=== PATIENT | female | born 1965 | race Caucasian/White ===

== ENCOUNTER → 2020-02-10 14:45 | Outpatient (BNVA) | payer OTHER, SELFPAY | PROVIDERS: PCP Internal Medicine; Visit Provider Surgery | DX: R10.13 Epigastric pain (principal); Z87.19 Personal history of other diseases of the digestive system | CPT/HCPCS: 99213 ==

== ENCOUNTER 2020-03-29 15:41 | Outpatient (REF) | payer OTHER, SELFPAY | END 2020-03-29 15:42 | disposition home or self-care (01) | LOC: HO.LAB 15:41 | PROVIDERS: PCP Internal Medicine; Visit Provider Internal Medicine | DX: Z20.828 Contact with and (suspected) exposure to other viral communicable diseases (principal) | CPT/HCPCS: C9803; U0003 ==

== ENCOUNTER → 2020-05-18 14:28 | Outpatient (BNVA) | payer OTHER, SELFPAY | PROVIDERS: PCP Internal Medicine; Visit Provider Nurse Practitioner ==

== ENCOUNTER → 2020-05-24 09:20 | Outpatient (BNVA) | payer OTHER, SELFPAY | PROVIDERS: PCP Internal Medicine; Visit Provider Nurse Practitioner Gerontology ==

== ENCOUNTER 2020-06-14 07:38 | Outpatient (REF) | payer OTHER, SELFPAY ==
[2020-06-14 09:14] LABS: Alanine Aminotransferase 23 U/L (0-31); Albumin Level 4.5 g/dL (3.5-5.0); Alkaline Phosphatase 60 U/L (39-117); Anion Gap 19 (12-20); Aspartate Amino Transferase 17 U/L (5-31); Bilirubin Total 0.9 mg/dL (0.0-1.0); Blood Urea Nitrogen 67 mg/dL (9-16); Calcium 9.2 mg/dL (8.4-10.2); Carbon Dioxide 34 mmol/L (22-29); Chloride 85 mmol/L (96-108); Cholesterol 92 mg/dL; Estimated Glomerular Filt Rate 38; Glucose Fasting 318 mg/dL (60-99); HDL Cholesterol 21 mg/dL; LDL Cholesterol Calculated -7 mg/dl; Sodium 134 mmol/L (135-145); Total Protein 7.8 g/dL (6.5-8.0); Triglycerides 393 mg/dL
[2020-06-14 09:15] LABS: Creatinine Urine 62.67 mg/dL; Microalbum/Creatinine Ratio Ur 9.5 ug/mg cr
[2020-06-14 09:21] LABS: C Reactive Protein 0.17 mg/dL (< or = 0.50)
[2020-06-14 09:35] LABS: Estimated Average Glucose 186 mg/dL; Hemoglobin A1c % 8.1 %
[2020-06-15 07:32] LABS: LDL Cholesterol Direct 34 mg/dL (<100)
[2020-06-16 15:16] LABS: Transglutaminase Ab IgG 5 U/mL; Transglutaminase IgA 1 U/mL
[2020-06-17 13:26] LABS: Gliadin Deamidated IgA Ab 5 Units; Gliadin Deamidated IgG Ab 3 Units
== END 2020-06-14 07:39 | disposition home or self-care (01) ==
LOC: HO.LAB 07:38
PROVIDERS: Absent Provider Nurse Practitioner Gerontology; PCP Internal Medicine; Visit Provider Nurse Practitioner
DX: E11.21 Type 2 diabetes mellitus with diabetic nephropathy (principal); R19.7 Diarrhea, unspecified
CPT/HCPCS: 36415; 80053; 80061; 82043; 83036; 83516; 83721; 86140

== ENCOUNTER 2020-07-02 07:32 | Outpatient (REF) | payer OTHER, SELFPAY ==
[2020-07-02 09:43] LABS: Alanine Aminotransferase 27 U/L (0-31); Albumin Level 4.2 g/dL (3.5-5.0); Alkaline Phosphatase 51 U/L (39-117); Anion Gap 15 (12-20); Aspartate Amino Transferase 30 U/L (5-31); Bilirubin Total 0.8 mg/dL (0.0-1.0); Blood Urea Nitrogen 15 mg/dL (9-16); Calcium 8.6 mg/dL (8.4-10.2); Carbon Dioxide 27 mmol/L (22-29); Chloride 105 mmol/L (96-108); Cholesterol 111 mg/dL; Estimated Glomerular Filt Rate > 60; Glucose Fasting 141 mg/dL (60-99); HDL Cholesterol 28 mg/dL; Potassium 3.9 mmol/L (3.3-5.1); Sodium 143 mmol/L (135-145); Total Protein 7.1 g/dL (6.5-8.0)
[2020-07-02 09:50] LABS: LDL Cholesterol Calculated 25 mg/dl; Triglycerides 292 mg/dL
== END 2020-07-02 07:33 | disposition home or self-care (01) ==
LOC: HO.LAB 07:32
PROVIDERS: Absent Provider Nurse Practitioner; PCP Internal Medicine; Referring Provider Internal Medicine; Visit Provider Nurse Practitioner Gerontology
DX: E11.21 Type 2 diabetes mellitus with diabetic nephropathy (principal); I10 Essential (primary) hypertension; R19.7 Diarrhea, unspecified
CPT/HCPCS: 36415; 80053; 80061

== ENCOUNTER → 2020-07-05 08:46 | Outpatient (BNVA) | payer OTHER, SELFPAY | PROVIDERS: PCP Internal Medicine; Visit Provider Nurse Practitioner Gerontology | DX: E11.21 Type 2 diabetes mellitus with diabetic nephropathy (principal); E11.42 Type 2 diabetes mellitus with diabetic polyneuropathy; I10 Essential (primary) hypertension; E78.5 Hyperlipidemia, unspecified; E55.9 Vitamin D deficiency, unspecified; Z79.4 Long term (current) use of insulin; Z71.3 Dietary counseling and surveillance | CPT/HCPCS: 82947; 99212 ==

== ENCOUNTER 2020-07-13 16:06 | Outpatient (REF) | payer OTHER, SELFPAY ==
--- NOTE | ~2020-07-13 | XR_ITS ---
EXAMINATION: XR knee LT 3V CLINICAL INFORMATION: Reason for Exam M25.562 - Pain in left knee COMPARISON: None available at the time of this dictation. TECHNIQUE: frontal, lateral, tunnel and patella sunrise views FINDINGS: BONES: No fracture or dislocation is present. JOINTS: Narrowing of joint spaces and developed osteophytes from the edges of articular surfaces suggest degenerative osteoarthritis. SOFT TISSUE: Normal XR/XR knee LT 3V IMPRESSION: Moderate degenerative osteoarthritis involving primarily medial compartment.
== END 2020-07-13 16:07 | disposition home or self-care (01) ==
LOC: HO.XRAY 16:06
PROVIDERS: PCP Internal Medicine; Visit Provider Internal Medicine
DX: M25.562 Pain in left knee (principal)
CPT/HCPCS: 73562

== ENCOUNTER 2020-07-21 06:36 | Outpatient (REF) | payer OTHER, SELFPAY ==
[2020-07-21 07:24] LABS: MANUAL DIFF FLAG NO
[2020-07-21 07:35] LABS: Basophils Percent Auto 0.5 % (0-2); Eosinophils Absolute Auto 0.2 X10*3/uL (0.0-0.4); Eosinophils Percent Auto 1.7 % (0-4); Hemoglobin 11.9 g/dl (12.0-16.0); Imm Gran Abs Auto 0.02 X10*3/uL (0.00-0.03); Imm Gran Pct Auto 0.2 % (0.0-0.4); Lymphocytes Absolute Auto 3.3 X10*3/uL (1.2-4.9); Lymphocytes Percent Auto 37.6 % (20-40); Mean Corpuscular HGB Conc 32.2 g/dl (31.0-35.0); Mean Corpuscular Hemoglobin 26.3 pg (27.0-33.0); Mean Corpuscular Volume 81.7 fL (80-98); Mean Platelet Volume 9.6 fL (9.4-12.3); Monocytes Absolute Auto 0.6 X10*3/uL (0.1-1.2); Monocytes Percent Auto 7.2 % (2-11); Neutrophils Absolute Auto 4.7 X10*3/uL (2.0-8.3); Neutrophils Percent Auto 52.8 % (45-73); Platelet Count 302 X10*3/uL (160-400); Red Blood Count 4.53 X10*6/uL (4.20-5.50); Red Cell Distribution Width 14.4 % (11.0-16.0); White Blood Count 8.9 X10*3/uL (4.8-10.8)
[2020-07-21 07:51] LABS: Alanine Aminotransferase 22 U/L (0-31); Albumin Level 4.4 g/dL (3.5-5.0); Alkaline Phosphatase 60 U/L (39-117); Anion Gap 14 (12-20); Aspartate Amino Transferase 19 U/L (5-31); Bilirubin Total 0.9 mg/dL (0.0-1.0); Blood Urea Nitrogen 17 mg/dL (9-16); Calcium 9.1 mg/dL (8.4-10.2); Carbon Dioxide 27 mmol/L (22-29); Chloride 103 mmol/L (96-108); Cholesterol 77 mg/dL; Estimated Glomerular Filt Rate > 60; Glucose Fasting 93 mg/dL (60-99); HDL Cholesterol 26 mg/dL; LDL Cholesterol Calculated 20 mg/dl; Potassium 4.3 mmol/L (3.3-5.1); Sodium 140 mmol/L (135-145); Total Protein 7.3 g/dL (6.5-8.0); Triglycerides 155 mg/dL
[2020-07-21 08:50] LABS: Creatinine Urine 74.72 mg/dL; Microalbum/Creatinine Ratio Ur 17.3 ug/mg cr
[2020-07-25 15:32] LABS: Vitamin D 25-OH, D2 <4 ng/mL; Vitamin D 25-OH, D3 44 ng/mL; Vitamin D 25-OH, Total 44 ng/mL (30-100)
== END 2020-07-21 06:37 | disposition home or self-care (01) ==
LOC: HO.LAB 06:36
PROVIDERS: PCP Internal Medicine; Visit Provider Internal Medicine
DX: E11.42 Type 2 diabetes mellitus with diabetic polyneuropathy (principal); E55.9 Vitamin D deficiency, unspecified; D64.9 Anemia, unspecified; M54.32 Sciatica, left side; E78.5 Hyperlipidemia, unspecified; Z79.4 Long term (current) use of insulin
CPT/HCPCS: 36415; 80053; 80061; 82043; 82306; 85025

== ENCOUNTER → 2020-07-30 09:06 | Outpatient (BNVA) | payer OTHER, SELFPAY | PROVIDERS: PCP Internal Medicine; Visit Provider Physician Assistant | DX: M17.12 Unilateral primary osteoarthritis, left knee (principal); E11.21 Type 2 diabetes mellitus with diabetic nephropathy | CPT/HCPCS: 20610; 99202; J1020 ==

== ENCOUNTER 2020-11-29 13:14 | Outpatient (REF) | payer OTHER, SELFPAY ==
--- NOTE | ~2020-11-29 | US_ITS ---
EXAMINATION: MM DIAGNOSTIC DIGITAL BREAST TOMOSYNTHESIS, BILATERAL US DIAGNOSTIC ULTRASOUND BREAST, RIGHT CLINICAL INFORMATION: 2.5 months history right breast pain 9:00 through 1:00 position. No palpable mass or discharge. Recent course antibiotic. No known family history breast cancer. Due for yearly. The lifetime risk of breast cancer based on the Tyrer-Cuzick Model is 5%. COMPARISON: Mammography: 05/29/2019, 10/29/2018, 11/13/2017, targeted right breast ultrasound 05/29/2019 TECHNIQUE: Digital breast tomosynthesis is performed in both the craniocaudal and mediolateral oblique views along with computer-aided detection (CAD). Synthesized 2D images are generated from the tomosynthesis. Additional spot left MLO view is obtained. Ultrasound right breast is targeted to the areas of symptoms 9:00 through 1:00 position. Grayscale imaging and color Doppler are performed without and with harmonics. FINDINGS: There are scattered areas of fibroglandular density (ACR BI-RADS breast composition Category b). Breast parenchymal pattern is similar to prior studies. There is no developing density or interval mass or architectural abnormality. There is asymmetry of the breast tissue, right slightly larger, similar to prior studies. There is no skin thickening or coarsening of the Nate's ligaments. The axilla are stable. Ultrasound demonstrates no cystic or solid mass, architectural abnormality, or focal duct ectasia. No skin thickening or edema tracking in soft tissue plane. Results are discussed with the patient at time of visit, using an television repair teacher. US/US breast RT limited IMPRESSION: 1. No mammographic evidence of malignancy or inflammatory changes. 2. Unremarkable targeted right breast ultrasound. ASSESSMENT: BI-RADS 2: Benign RECOMMENDATION: 1. Patient's breast pain should be managed based on the clinical impression. 2. Otherwise, routine annual screening mammography. This patient's information was entered into a reminder system with a target due date for their next mammogram.
== END 2020-11-29 13:15 | disposition home or self-care (01) ==
LOC: HO.MAMMO 13:14
PROVIDERS: Visit Provider Hospitalist
DX: N64.4 Mastodynia (principal)
CPT/HCPCS: 76642; 77062; 77066

== ENCOUNTER 2020-12-06 09:51 | Outpatient (REF) | payer OTHER, SELFPAY ==
[2020-12-06 13:00] LABS: MANUAL DIFF FLAG NO
[2020-12-06 13:15] LABS: Basophils Absolute Auto 0.1 X10*3/uL (0.0-0.2); Basophils Percent Auto 0.6 % (0-2); Eosinophils Absolute Auto 0.2 X10*3/uL (0.0-0.4); Eosinophils Percent Auto 2.6 % (0-4); Hematocrit 43.5 % (37-47); Hemoglobin 13.3 g/dl (12.0-16.0); Imm Gran Abs Auto 0.01 X10*3/uL (0.00-0.03); Imm Gran Pct Auto 0.1 % (0.0-0.4); Lymphocytes Absolute Auto 3.2 X10*3/uL (1.2-4.9); Lymphocytes Percent Auto 35.7 % (20-40); Mean Corpuscular HGB Conc 30.6 g/dl (31.0-35.0); Mean Corpuscular Hemoglobin 24.6 pg (27.0-33.0); Mean Corpuscular Volume 80.6 fL (80-98); Mean Platelet Volume 10.3 fL (9.4-12.3); Monocytes Absolute Auto 0.8 X10*3/uL (0.1-1.2); Monocytes Percent Auto 8.5 % (2-11); Neutrophils Absolute Auto 4.7 X10*3/uL (2.0-8.3); Neutrophils Percent Auto 52.5 % (45-73); Platelet Count 254 X10*3/uL (160-400); Red Cell Distribution Width 14.7 % (11.0-16.0); White Blood Count 8.9 X10*3/uL (4.8-10.8)
[2020-12-06 13:48] LABS: Creatinine Urine 182.18 mg/dL
[2020-12-06 14:01] LABS: Alanine Aminotransferase 21 U/L (0-31); Albumin Level 4.3 g/dL (3.5-5.0); Alkaline Phosphatase 69 U/L (39-117); Anion Gap 12 (12-20); Aspartate Amino Transferase 18 U/L (5-31); Bilirubin Total 0.5 mg/dL (0.0-1.0); Blood Urea Nitrogen 15 mg/dL (9-16); C Reactive Protein 0.41 mg/dL (< or = 0.50); Calcium 9.2 mg/dL (8.4-10.2); Carbon Dioxide 31 mmol/L (22-29); Chloride 102 mmol/L (96-108); Cholesterol 162 mg/dL; Estimated Glomerular Filt Rate 59; Glucose Fasting 89 mg/dL (60-99); HDL Cholesterol 27 mg/dL; Potassium 4.2 mmol/L (3.3-5.1); Rheumatoid Factor < 15.0 IU/mL (<15.0); Sodium 141 mmol/L (135-145); Total Protein 7.4 g/dL (6.5-8.0); Triglycerides 402 mg/dL
[2020-12-06 14:07] LABS: Erythrocyte Sedimentation Rate 7 MM/HR (0-20)
[2020-12-08 09:41] LABS: NT-proBNP 55 pg/mL
[2020-12-08 16:16] LABS: Cyclic Citrullinated Peptide <16 UNITS
[2020-12-08 22:27] LABS: ANA Pattern 2 Nuclear, Nucleolar; Anti Nuclear Antibody Pattern Nuclear, Speckled; Anti Nuclear Antibody Screen POSITIVE (NEGATIVE); Anti Nuclear Antibody Titer 1:40 titer
[2020-12-10 14:31] LABS: Vitamin D 25-OH, D2 <4 ng/mL; Vitamin D 25-OH, D3 35 ng/mL; Vitamin D 25-OH, Total 35 ng/mL (30-100)
== END 2020-12-06 09:52 | disposition home or self-care (01) ==
LOC: HO.LAB 09:51
PROVIDERS: Absent Provider Internal Medicine; PCP Internal Medicine; Referring Provider Physician Assistant Medical; Visit Provider Nurse Practitioner Gerontology
DX: M25.50 Pain in unspecified joint (principal); E55.9 Vitamin D deficiency, unspecified; E78.5 Hyperlipidemia, unspecified; E11.21 Type 2 diabetes mellitus with diabetic nephropathy; D64.9 Anemia, unspecified; I25.10 Atherosclerotic heart disease of native coronary artery without angina pectoris
CPT/HCPCS: 36415; 80053; 80061; 82043; 82306; 83880; 85025; 85652; 86038; 86039; 86140; 86200; 86431

== ENCOUNTER → 2020-12-31 09:42 | Outpatient (REF) | payer OTHER, SELFPAY ==
--- NOTE | ~2020-12-31 | NM_ITS ---
Exercise Myocardial perfusion study Indication: Coronary artery disease to evaluate for myocardial ischemia Technique: The patient was brought in for an exercise perfusion study on 12/31/2020. Patient performed exercise as per Mo protocol and was injected 30 mCi of sestamibi was given intravenously one target HR was achieved. Images were obtained using the SPECT gamma camera interlaced with the gating device. Images were obtained in supine position. Resting perfusion study was performed on 01/03/2021. Patient was administered 30 mCi of sestamibi intravenously at rest. Images were then obtained in supine position. Images obtained with and without CT attenuation. Total DLP 110 mGy-cm. Images were processed with the software and compared side to side in short axis, horizontal long axis and vertical long axis views. Findings: The stress perfusion study showed nonattenuated images show mildly reduced uptake in the basal anterior and basal anteroseptal wall of the LV myocardium. Remainder of the LV myocardium appears to be normally perfused. Attenuation corrected images show mildly reduced uptake in the basal anteroseptal as well as mildly reduced uptake in the inferoapical wall of the LV myocardium.. The gated study shows normal LV systolic function with calculated LVEF of 59%. LV cavity is normal in in size. The gated study shows normal systolic wall thickening and contraction of all segments. There is no transient ischemic dilation. Resting study shows nonattenuated images show improvement in the basal anteroseptal wall of the LV myocardium. Attenuation corrected images show improved uptake in the basal anteroseptal as well as the inferoapical wall of the LV myocardium.. Gating at rest reveals normal systolic wall motion with ejection fraction at 57%. The findings are consistent with mild intensity basal anteroseptal and inferoapical ischemia. NM/NM nano perf SPECT rest & str Impression: 1. Mild basal anteroseptal and inferoapical ischemia 2. Gated LVEF is 59% 3. Transient ischemic dilatation not present Stress EKG is positive for ischemia
--- NOTE | 2020-12-31 09:48 | CA_ITS ---
Acquisition Time: 2020-12-31 10:01:22 Total Exercise Time: 00:03:19 Test Indications: Chest Pain, SOB Medications: Protocol: PERLA Max HR: 112 BPM 68% of Pred: 163 BPM Max BP: 140/082 mmHG Max Work Load: 4.9 METS Exercise stress test with exercise 3 min 19 sec of Perla protocol, with difficulty keeping up with treadmill in stage 2 and request to slow exercise. Treadmill placed n recovery and slowed to 1 MPH for additonal 4 minutes. Testing was changed to a pharmacological stress test with Lexiscan with report of 8/10 left chest pressure, mild sob, without arrythmia, with normotensive response to injection, with EKG changes meeting criteria for ischemia: [address] depression inferiorly and V6. In recovery her chest discomfort improved to 5/10. After 4 minutes post lexiscan injection she was given Aminophylline 75mg IVP with resolution of CP by 5 min recovery and normalization of EKG by 6.5 min recovery. Nuclear images pending. Test reviewed with Dr Blackburn. Referred By: Ankit Thomson Overread By: ANGIE HOLLOWAY
== END ==
LOC: HO.CARD 09:42
PROVIDERS: Visit Provider Physician Assistant Medical
DX: I25.10 Atherosclerotic heart disease of native coronary artery without angina pectoris (principal)
CPT/HCPCS: 78452; 93017; A9500; J0280; J2785

== ENCOUNTER 2021-04-06 08:13 | Outpatient (REF) | payer OTHER, SELFPAY ==
--- NOTE | ~2021-04-06 | XR_ITS ---
EXAMINATION: XR SHOULDER, LEFT CLINICAL INFORMATION: Pain left shoulder. COMPARISON: None TECHNIQUE: AP, scapular Y, and axillary views of the left shoulder. FINDINGS: There is no acute fracture or malalignment. There are small marginal spurs of the glenohumeral joint, particularly inferiorly. There is no definite joint space narrowing. There is mild osteoarthritis of the acromioclavicular joint. XR/XR shoulder LT min 2V IMPRESSION: Mild osteoarthritis of the glenohumeral and acromioclavicular joints.
== END 2021-04-06 08:14 | disposition home or self-care (01) ==
LOC: HO.HOSX 08:13
PROVIDERS: Visit Provider Physician Assistant
DX: M19.019 Primary osteoarthritis, unspecified shoulder (principal); M75.82 Other shoulder lesions, left shoulder
CPT/HCPCS: 20610; 73030; 99202; J1020

== ENCOUNTER → 2021-05-18 09:32 | Outpatient (BNVA) | payer OTHER, SELFPAY | PROVIDERS: PCP Internal Medicine; Visit Provider Physician Assistant | DX: M75.82 Other shoulder lesions, left shoulder (principal); M19.019 Primary osteoarthritis, unspecified shoulder | CPT/HCPCS: 99212 ==

== ENCOUNTER → 2021-05-30 10:57 | Outpatient (BNVA) | payer OTHER, SELFPAY | PROVIDERS: PCP Internal Medicine; Visit Provider Nurse Practitioner Gerontology | DX: E11.21 Type 2 diabetes mellitus with diabetic nephropathy (principal); E11.42 Type 2 diabetes mellitus with diabetic polyneuropathy; I10 Essential (primary) hypertension; Z79.4 Long term (current) use of insulin; E78.5 Hyperlipidemia, unspecified; E55.9 Vitamin D deficiency, unspecified | CPT/HCPCS: 82947; 83036; 99212 ==

== ENCOUNTER → 2021-06-17 10:19 | Outpatient (BNVA) | payer OTHER, SELFPAY | PROVIDERS: PCP Internal Medicine; Visit Provider Dietitian, Registered | DX: E11.42 Type 2 diabetes mellitus with diabetic polyneuropathy (principal); Z79.4 Long term (current) use of insulin; Z71.3 Dietary counseling and surveillance | CPT/HCPCS: 97802 ==

== ENCOUNTER → 2021-06-29 09:37 | Outpatient (BNVA) | payer OTHER, SELFPAY | PROVIDERS: PCP Internal Medicine; Visit Provider Physician Assistant | DX: M19.012 Primary osteoarthritis, left shoulder (principal); M75.82 Other shoulder lesions, left shoulder | CPT/HCPCS: 20610; 99212; J1020 ==

== ENCOUNTER 2021-08-05 10:00 | Outpatient (RCR) | payer OTHER, SELFPAY ==
--- NOTE | 2021-07-06 11:01 | MHC.PT.EP ---
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 OBJECTIVE FINDINGS: DECR POSTURAL AWARENESS, WEAK POST RC/ SCAP, TIGHT ANT CHEST (CARDIAC SURG), LEFT SH ROM LIMITATIONS, INCR TISSUE TENSION EMMA LS PS MM, AND PAIN IN LEFT SH. FUNCTIONALLY, Pt HAS DIFFIC SLEEPING ON Lt SIDE, LIMITED W OVERALL ADLs- OBSERVED TODAY INDEP DONNING JACKET AND BED MOB WFL W/O ASSIST OR VERBALIZATION OF LIMITING Lt SH PAIN. Pt WOULD BENEFIT FROM PT TO ADDRESS THE ABOVE FINDINGS, EASE TISSUE TENSION, PAIN MGMT, AND DEV SELF- SX MGMT STRATEGIES. Frequency and Duration: The patient will be seen 2 x WK x 4 WKS Short Term Goals: *Pt'S LEFT SH PAIN DECR TO 4-5/10 IN 2 WKS (AT EVAL 10/10) *Pt DEMON IMPROVED AROM Lt SH IN 2 WKS *REDUCE EMMA LUMBAR PS MM TENSION AND PECT TIGHTNESS IN 2 WKS Halfway Goals: *Pt INDEP HEP PROGR AND SELF-SX MGMT STRATEGIES FOR Lt SH IN 4 WKS Pt RESUME REG ADLs TO ESSIE EVIDENT IN IMPROVED SPADI BY 20-30 POINTS ( AT EVAL 130 /130 ) IN 4 WKS *Pt SIMUL 3:3 ADLs / WORK TASKS W PROPER MECHANICS IN 4 WKS *Pt DEMON IMPROVED STRENGTH IN Lt SH/ SCAP BY 1/2-1 GRADE IN 4 WKS Treatment Plan: Modalities to reduce pain, spasms and effusion. Manual therapy to restore motion and function. Therapeutic exercise to improve strength and flexibility. Neuromuscular re-education for posture and balance. Therapeutic activities to return to functional activities of daily living. Electronically signed by: Yumiko Nunez,PT Please sign and return to therapist. Thank you for your referral.
--- NOTE | 2021-09-07 14:55 | MHC.PT.DC ---
[facility] [place] Office [place] Office [place] Office [address]sha [address] [phone] F: [phone] F: [phone] F: [phone] F: [phone] Physical Therapy Discharge Report Diagnosis: LEFT SH OA, AC Jt ARTHRITIS, TENDONITIS Lt RC Date of Surgery: Date of Evaluation: 07/06/21 Date of Discharge: 09/07/21 Treatments to Date: 3 Cancellations to Date: No Shows to Date: Discharge Status: Improved Function Independent with HEP Discharge Summary: THE Pt BENEFITTED FROM Lt SH ROM/ POSTURAL FB, SCAP / TRUNK MM ACTIV, AND POSTERIOR CHAIN EASING- SHE PERF HEP W/O ANY PAIN, ONLY TISSUE STRETCH TO EASE- SHE ATTENDED 3 APPTs AND ELECTED TO STOP PT AT THIS TIME. Electronically signed by: Yumiko Nunez,PT Please sign and return to therapist. Thank you for your referral.
== END 2021-09-07 14:54 | disposition home or self-care (01) ==
LOC: HO.PT 10:00
PROVIDERS: PCP Internal Medicine; Visit Provider Physician Assistant
DX: M19.019 Primary osteoarthritis, unspecified shoulder (principal); M75.82 Other shoulder lesions, left shoulder
CPT/HCPCS: 97110; 97162

== ENCOUNTER 2021-08-17 09:00 | Outpatient (REF) | payer OTHER, SELFPAY ==
[2021-08-17 10:06] LABS: Creatinine Urine 188.01 mg/dL; Microalbum/Creatinine Ratio Ur 34.5 ug/mg cr
[2021-08-17 10:10] LABS: Alanine Aminotransferase 26 U/L (0-31); Albumin Level 4.2 g/dL (3.5-5.0); Alkaline Phosphatase 81 U/L (39-117); Anion Gap 12 (12-20); Aspartate Amino Transferase 25 U/L (5-31); Bilirubin Total 1.2 mg/dL (0.0-1.0); Blood Urea Nitrogen 16 mg/dL (9-16); Calcium 9.9 mg/dL (8.4-10.2); Carbon Dioxide 30 mmol/L (22-29); Chloride 102 mmol/L (96-108); Cholesterol 151 mg/dL; Estimated Glomerular Filt Rate 52; Glucose Fasting 124 mg/dL (60-99); HDL Cholesterol 31 mg/dL; LDL Cholesterol Calculated 85 mg/dl; Potassium 4.6 mmol/L (3.3-5.1); Sodium 139 mmol/L (135-145); Total Protein 7.8 g/dL (6.5-8.0); Triglycerides 175 mg/dL
[2021-08-24 11:06] LABS: Vitamin D 25-OH, D2 <4 ng/mL; Vitamin D 25-OH, D3 32 ng/mL; Vitamin D 25-OH, Total 32 ng/mL (30-100)
== END 2021-08-17 09:01 | disposition home or self-care (01) ==
LOC: HO.LAB 09:00
PROVIDERS: PCP Internal Medicine; Visit Provider Internal Medicine
DX: E78.5 Hyperlipidemia, unspecified (principal); I10 Essential (primary) hypertension; E55.9 Vitamin D deficiency, unspecified; E11.9 Type 2 diabetes mellitus without complications
CPT/HCPCS: 36415; 80053; 80061; 82043; 82306

== ENCOUNTER → 2021-08-25 11:50 | Outpatient (BNVA) | payer OTHER, SELFPAY | PROVIDERS: PCP Internal Medicine; Referring Provider Internal Medicine; Visit Provider Nurse Practitioner | DX: K31.84 Gastroparesis (principal); R19.7 Diarrhea, unspecified | CPT/HCPCS: 99212 ==

== ENCOUNTER → 2021-09-07 10:51 | Outpatient (BNVA) | payer OTHER, SELFPAY | PROVIDERS: PCP Internal Medicine; Visit Provider Physician Assistant | DX: M75.82 Other shoulder lesions, left shoulder (principal); M25.50 Pain in unspecified joint | CPT/HCPCS: 99212 ==

== ENCOUNTER 2021-09-09 07:16 | Outpatient (REF) | payer OTHER, SELFPAY ==
--- NOTE | ~2021-09-09 | XR_ITS ---
EXAMINATION: XR BILATERAL KNEE CLINICAL INFORMATION: Bilateral knee pain. COMPARISON: Left knee done on 07/13/2020 and right knee done on 12/23/2019. TECHNIQUE: Upright frontal view of both knees and lateral and patellofemoral views of the left knee. FINDINGS: Upright frontal views of both knees shows moderate medial compartmental and mild lateral compartmental osteoarthrosis. The bony alignments are intact. The lateral view and the patellofemoral views of the left knee shows enthesopathy at the insertional site of the infrapatellar tendon and no evidence of any joint effusion, unchanged since 07/13/2020. XR/XR knee LT 2V IMPRESSION: 1. Moderate medial and mild lateral compartmental bilateral osteoarthrosis. 2. No significant change since prior study dated 07/13/2020 and 12/23/2019.
--- NOTE | ~2021-09-09 | XR_ITS ---
EXAMINATION: XR BILATERAL KNEE CLINICAL INFORMATION: Bilateral knee pain. COMPARISON: Left knee done on 07/13/2020 and right knee done on 12/23/2019. TECHNIQUE: Upright frontal view of both knees and lateral and patellofemoral views of the left knee. FINDINGS: Upright frontal views of both knees shows moderate medial compartmental and mild lateral compartmental osteoarthrosis. The bony alignments are intact. The lateral view and the patellofemoral views of the left knee shows enthesopathy at the insertional site of the infrapatellar tendon and no evidence of any joint effusion, unchanged since 07/13/2020. XR/XR knee standing BI IMPRESSION: 1. Moderate medial and mild lateral compartmental bilateral osteoarthrosis. 2. No significant change since prior study dated 07/13/2020 and 12/23/2019.
== END 2021-09-09 07:17 | disposition home or self-care (01) ==
LOC: HO.HOSX 07:16
PROVIDERS: Visit Provider Physician Assistant
DX: M17.12 Unilateral primary osteoarthritis, left knee (principal)
CPT/HCPCS: 20610; 73560; 73565; 99212; J1020

== ENCOUNTER 2021-09-28 08:37 | Outpatient (REF) | payer OTHER, SELFPAY ==
--- NOTE | ~2021-09-28 | MR_ITS ---
EXAMINATION: MRI SHOULDER WITHOUT CONTRAST, LEFT CLINICAL INFORMATION: Left shoulder pain. COMPARISON: None TECHNIQUE: Multisequence MR imaging of the left shoulder was obtained without contrast on a high-field strength scanner. FINDINGS: ROTATOR CUFF: Moderate supraspinatus tendinosis with high-grade distal articular surface partial tearing measuring up to 2.3 x 1.9 cm (AP by ML). For the most part the bursal surface tendon fibers appear to remain intact. However, there may be a small full-thickness component to the tear along the anterior leading edge measuring up to 0.3 cm in AP dimension. Mild subscapularis tendinosis with distal superior articular surface partial tearing measuring 2.2 cm in ML dimension. No muscle atrophy or fatty infiltration. BICEPS: Normal CORACOACROMIAL ARCH: The undersurface of the acromion is mildly curved with small subacromial spurs. Moderate acromioclavicular osteoarthritis. LABRUM/CAPSULE: Shallow fluid signal within the undersurface of the superior and posterosuperior labrum consistent with non-displaced undersurface tearing. Intact joint capsule. GLENOHUMERAL JOINT/MARROW: Focus of full-thickness articular cartilage loss at the superomedial humeral head measuring up to 1.4 cm in ML dimension. Superior glenoid articular cartilage thinning. Small marginal osteophytes. Small joint effusion. MR/MR shoulder LT wo con IMPRESSION: 1. Moderate supraspinatus tendinosis with high-grade articular surface partial tearing measuring 2.3 x 1.9 cm. Possible small full-thickness component along the anterior leading edge measuring up to 0.3 cm in AP dimension. Mild subscapularis tendinosis with distal articular surface partial tearing measuring 2.2 cm in ML dimension. 2. Moderate acromioclavicular osteoarthritis with small subchondral spurs. 3. Nonspecific undersurface tearing the superior and posterosuperior labrum. 4. Mild glenohumeral osteoarthritis with a full-thickness humeral head articular cartilage defect measuring up to 1.4 cm. Small joint effusion.
== END 2021-09-28 08:38 | disposition home or self-care (01) ==
LOC: HO.MRI 08:37
PROVIDERS: Visit Provider Physician Assistant
DX: S46.002A Unspecified injury of muscle(s) and tendon(s) of the rotator cuff of left shoulder, initial encounter (principal)
CPT/HCPCS: 73221

== ENCOUNTER → 2021-10-03 10:49 | Outpatient (BNVA) | payer OTHER, SELFPAY | PROVIDERS: PCP Internal Medicine; Visit Provider Anesthesiology | DX: M19.012 Primary osteoarthritis, left shoulder (principal); M75.102 Unspecified rotator cuff tear or rupture of left shoulder, not specified as traumatic; E66.01 Morbid (severe) obesity due to excess calories; Z68.41 Body mass index [BMI] 40.0-44.9, adult | CPT/HCPCS: 99202; 99212 ==

== ENCOUNTER 2021-10-25 12:00 | Outpatient (REF) | payer OTHER, SELFPAY ==
--- NOTE | ~2021-10-25 | XR_ITS ---
EXAMINATION: XR HAND, LEFT CLINICAL INFORMATION: Pain. COMPARISON: None TECHNIQUE: PA, lateral, and oblique views of the left hand. FINDINGS: There is no visible acute fracture, dislocation. The joint space alignment is normal. No bony erosive changes. The soft tissues are normal. XR/XR hand LT min 3V IMPRESSION: Unremarkable left hand.
== END 2021-10-25 12:01 | disposition home or self-care (01) ==
LOC: HO.HOSX 12:00
PROVIDERS: Visit Provider Orthopaedic Surgery
DX: M18.12 Unilateral primary osteoarthritis of first carpometacarpal joint, left hand (principal)
CPT/HCPCS: 73130; 99202

== ENCOUNTER 2022-01-09 07:41 | Outpatient (REF) | payer OTHER, SELFPAY ==
[2022-01-09 07:50] LABS: MANUAL DIFF FLAG NO
[2022-01-09 08:14] LABS: Basophils Absolute Auto 0.1 X10*3/uL (0.0-0.2); Basophils Percent Auto 0.7 % (0-2); Eosinophils Absolute Auto 0.3 X10*3/uL (0.0-0.4); Eosinophils Percent Auto 3.7 % (0-4); Hematocrit 41.5 % (37.0-47.0); Hemoglobin 13.5 g/dl (12.0-16.0); Imm Gran Abs Auto 0.01 X10*3/uL (0.00-0.03); Imm Gran Pct Auto 0.1 % (0.0-0.4); Lymphocytes Absolute Auto 2.9 X10*3/uL (1.2-4.9); Lymphocytes Percent Auto 42.3 % (20-40); Mean Corpuscular HGB Conc 32.5 g/dl (31.0-35.0); Mean Corpuscular Hemoglobin 26.7 pg (27.0-33.0); Mean Corpuscular Volume 82.2 fL (80.0-98.0); Mean Platelet Volume 9.7 fL (9.4-12.3); Monocytes Absolute Auto 0.6 X10*3/uL (0.1-1.2); Monocytes Percent Auto 8.1 % (2-11); Neutrophils Absolute Auto 3.1 x10*3/uL (2.0-8.3); Neutrophils Percent Auto 45.1 % (45-73); Platelet Count 245 X10*3/uL (160-400); Red Blood Count 5.05 X10*6/uL (4.20-5.50); Red Cell Distribution Width 13.8 % (11.0-16.0); White Blood Count 6.8 X10*3/uL (4.8-10.8)
[2022-01-09 08:42] LABS: Alanine Aminotransferase 17 U/L (0-31); Albumin Level 4.1 g/dL (3.5-5.0); Alkaline Phosphatase 85 U/L (39-117); Anion Gap 14 (12-20); Aspartate Amino Transferase 14 U/L (5-31); Bilirubin Total 0.8 mg/dL (0.0-1.0); Blood Urea Nitrogen 15 mg/dL (9-16); Calcium 9.1 mg/dL (8.4-10.2); Carbon Dioxide 26 mmol/L (22-29); Chloride 103 mmol/L (96-108); Cholesterol 200 mg/dL; Estimated Glomerular Filt Rate > 60; Glucose Fasting 239 mg/dL (60-99); HDL Cholesterol 29 mg/dL; LDL Cholesterol Calculated 130 mg/dl; Potassium 4.3 mmol/L (3.3-5.1); Sodium 139 mmol/L (135-145); Total Protein 7.2 g/dL (6.5-8.0); Triglycerides 208 mg/dL
[2022-01-09 08:44] LABS: Creatinine Urine 223.17 mg/dL; Microalbum/Creatinine Ratio Ur 51.5 ug/mg cr
[2022-01-09 08:58] LABS: Free T4 (Free Thyroxine) 1.09 ng/dL (0.71-1.85)
[2022-01-09 09:03] LABS: Thyroid Stimulating Hormone 1.65 uIU/mL (0.32-4.0); Vitamin D 25-OH Total 35.4 ng/mL (>30)
[2022-01-10 23:52] LABS: LDL Cholesterol Direct 144 mg/dL (<100)
[2022-01-11 11:51] LABS: NT-proBNP 42 pg/mL
== END 2022-01-09 07:42 | disposition home or self-care (01) ==
LOC: HO.LAB 07:41
PROVIDERS: Absent Provider Internal Medicine; PCP Internal Medicine; Visit Provider Nurse Practitioner Gerontology
DX: E11.42 Type 2 diabetes mellitus with diabetic polyneuropathy (principal); E66.01 Morbid (severe) obesity due to excess calories; D64.9 Anemia, unspecified; E55.9 Vitamin D deficiency, unspecified; I50.20 Unspecified systolic (congestive) heart failure; E78.5 Hyperlipidemia, unspecified; Z79.4 Long term (current) use of insulin
CPT/HCPCS: 36415; 80053; 80061; 82043; 82306; 83721; 83880; 84439; 84443; 85025

== ENCOUNTER 2022-05-29 15:19 | Observation (INO) | payer OTHER, SELFPAY ==
--- NOTE | ~2022-05-29 | CT_ITS ---
CT HEAD WITHOUT CONTRAST CLINICAL INFORMATION: Result facial droop. COMPARISON: None available. TECHNIQUE: Contiguous axial imaging was performed from the skull base to vertex without intravenous administration of contrast. This CT examination was performed using dose optimization techniques as appropriate, variously including the following: *Automated exposure control *Adjustment of mA and/or kV according to patient size (this includes techniques or standardized protocols for targeted exams where dose is matched to indication/reason for exam; i.e. extremities or head) *Use of iterative reconstruction technique FINDINGS: Mild to moderate multifocal hypoattenuation throughout the supratentorial white matter is nonspecific and can be further assessed with a MRI of the brain as clinically indicated. There is no intracranial hemorrhage, hydrocephalus, extra-axial surface collection, midline shift, or other herniation pattern. [place] to white matter differentiation is diffusely maintained without evidence of an evolved acute territorial infarct. The basilar cisterns are preserved. No significant soft tissue abnormality. No acute osseous abnormality. There is mild mucosal thickening within the left maxillary sinus. CT/CT head/brain wo IV con IMPRESSION: No definite acute intracranial abnormality. Mild to moderate multifocal hypoattenuation throughout the supratentorial white matter is nonspecific and can be further assessed with a MRI of the brain as clinically indicated.
--- NOTE | ~2022-05-29 | CT_ITS ---
EXAMINATION: CT ANGIOGRAM HEAD CT ANGIOGRAM NECK CLINICAL INFORMATION: Reason for Exam tia, left facial droop resolved COMPARISON: Same day CTA head without contrast TECHNIQUE: Initial noncontrast night supervisor imaging of the head and neck was performed. Comparison is made with noncontrast head CT from earlier today. Test bolus sequences followed by intravenous administration 70 mL of Omnipaque 350. Helical imaging was performed in the axial plane from the aortic arch to the skull vertex. Delayed postcontrast imaging of the head was also performed. The data was processed at the nuclear cardiology technologist's workstation for generation of MIP sequences. Angled MIPs and volume rendered reformatted images were also generated at an offline 3D workstation. Stenoses are assessed in accordance with NASCET criteria unless otherwise indicated. DLP: 1439 mGy-cm This CT examination was performed using dose optimization techniques as appropriate, variously including the following: *Automated exposure control. *Adjustment of mA and/or kV according to patient size (this includes techniques or standardized protocols for targeted exams where dose is matched to indication/reason for exam; i.e. extremities or head). *Use of iterative reconstruction technique. FINDINGS: CT Head: There is no evidence of acute intracranial hemorrhage or edematous territorial infarction. Hypoattenuation in the bifrontal white matter is nonspecific but may reflect sequela of chronic microvascular ischemia. Campos-white matter differentiation is preserved. The ventricles are normal in size and configuration. No evidence for obstructive hydrocephalus. No abnormal mass effect or midline shift. No extra-axial fluid collections. No pathologic intra-axial enhancement or regional oligemia. No acute soft tissue or osseous abnormalities. Mild ethmoid and left maxillary sinus mucosal thickening. CT Neck: There is a 1.5 cm hypodense nodule in the inferior left lobe of the thyroid gland. Subcentimeter hypodense nodule in the superior right lobe. The remaining cervical soft tissues are within normal limits. No significant abnormalities of the cervical spine. CT Upper Chest: The visualized lung apices and upper mediastinum are within normal limits. Postsurgical changes from median sternotomy and evidence of prior coronary artery bypass grafting. Neck CTA: Aortic Arch: Normal contour and caliber. Classic 3 vessel branching pattern of the aortic arch. Great Vessel Origins: No significant stenosis of the branch origins. Right Common Carotid Artery: No focal stenosis or occlusion. Cervical Right Internal Carotid Artery: Normal opacification without focal stenosis or occlusion. Left Common Carotid Artery: No focal stenosis or occlusion. Cervical Left Internal Carotid Artery: Mild calcific atherosclerotic disease of the carotid bulb and proximal internal carotid artery without flow-limiting stenosis. Cervical Right Vertebral Artery: No focal stenosis or occlusion. Cervical Left Vertebral Artery: No focal stenosis or occlusion. Brain CTA: Multifocal irregularity of intracranial arterial circulation is likely on the basis of diffuse atherosclerotic disease. Intracranial Internal Carotid Arteries: Calcific atherosclerosis of the right cavernous and supraclinoid ICA with mild right supraclinoid narrowing. Normal caliber of the right carotid terminus. There is irregularity and moderate to severe stenosis of the left paraclinoid and supraclinoid ICA on the basis of atherosclerotic disease. Anterior Cerebral Artery: Dominant right A1 segment. The left A1 segment is diminutive, likely on a congenital basis with apparent moderate stenosis of the left A1 origin. Azygos configuration of the A2 segment. Anterior Communicating Artery: Normal. Right Middle Cerebral Artery: Normal M1 segment of the MCA without focal stenosis or occlusion. Normal arborization of the distal segments. Left Middle Cerebral Artery: Moderate stenosis of the left M1 origin Normal arborization of the distal segments. Right Vertebral Artery: Mild calcified atherosclerotic disease and proximal narrowing. Left Vertebral Artery: Mild calcified atherosclerotic disease and proximal narrowing. Basilar Artery: There is a mild to moderate stenosis of the distal basilar artery at the level of the ICA origins related to eccentric lipid-laden plaque. Normal appearance of the proximal superior cerebellar arteries. Right Posterior Cerebral Artery: Normal P1 segment. Normal opacification of the distal [employer] segments. Left Posterior Cerebral Artery: Normal P1 segment. Normal opacification of the distal [employer] segments. Normal opacification of the superior sagittal, straight, transverse, and sigmoid sinuses. CT/CT angio head neck stroke IMPRESSION: 1. No arterial high-grade stenosis or large vessel occlusion is identified to explain patient's clinical symptomatology of left-sided facial droop. 2. There is multifocal intracranial atherosclerotic disease, most notably involving the left anterior circulation with moderate to high-grade stenosis of the paraclinoid and supraclinoid left ICA as well as the origins of the left A1 and M1 segments. 3. 1.5 cm hypodense nodule in the inferior left thyroid. Recommend further evaluation with outpatient thyroid ultrasound. Impression #1 and #[address] Babin on 05/29/2022 at 10:03 PM
[2022-05-29 15:26] VITALS: BP 130/87; PULSE 92; RESP 18; TEMP 36.6; O2SAT 96; BMI 43.0
--- NOTE | 2022-05-29 15:34 | ED_ITS ---
HPI - General Adult General Chief complaint: General Medical Stated complaint: facial droop/ sent by for stroke Time Seen by Provider: 05/29/22 20:53 Related Data Home Medications Medication Instructions Recorded Confirmed fluoxetine 40 mg capsule 40 mg PO DAILY 12/06/20 05/30/22 sacubitril 49 mg-valsartan 51 mg 1 tab PO BID 05/30/21 05/30/22 tablet (Entresto) aspirin 81 mg tablet,delayed 81 mg PO DAILY 08/25/21 05/30/22 release ammonium lactate 12 % topical cream 1 appl topical BID 05/29/22 05/29/22 cream base no.193 (bulk) 1 appl topical TID 05/29/22 05/29/22 (Versatile topical cream) naproxen 125 mg/5 mL oral 250 mg PO BID PRN Pain (Scale 05/29/22 05/29/22 suspension Score 4-6) dulaglutide 1.5 mg/0.5 mL 1.5 mg subcut WE 05/30/22 05/30/22 subcutaneous pen injector (IntegraGen) Previous Rx's Medication Instructions Recorded trazodone 100 mg tablet 100 mg PO BEDTIME PRN for insomnia 03/09/20 #30 tabs blood-glucose meter (FreeStyle #1 ea 05/30/21 Lite Meter kit) lancets 33 gauge (TRUEplus Lancets) #200 ea 05/30/21 pen needle, diabetic 32 gauge x #125 ea 05/30/21/32 (BD Ultra-Fine Rika Pen Needle) cholecalciferol (vitamin D3) 25 25 mcg PO DAILY 30 days #30 caps 06/27/21 mcg (1,000 unit) capsule blood sugar diagnostic (FreeStyle #100 ea 08/17/21 Lite Strips) metoclopramide HCl 5 mg tablet 5 mg PO QIDACHS #120 tabs 08/25/21 (Reglan) ezetimibe 10 mg tablet 10 mg PO DAILY #90 tabs 09/27/21 flash glucose scanning reader #1 ea 11/02/21 (FreeStyle Arsalan 2 Cable) flash glucose sensor (FreeStyle #2 ea 11/02/21 Arsalan 2 Sensor kit) amlodipine 10 mg tablet 10 mg PO DAILY 90 days #90 tabs 12/19/21 sucralfate 1 gram tablet 3 g PO DAILY #90 tabs 01/09/22 metformin 1,000 mg tablet 1,000 mg PO BID #90 tabs 01/27/22 atorvastatin 80 mg tablet 80 mg PO BEDTIME 90 days #90 tabs 05/16/22 hydralazine 10 mg tablet 10 mg PO TID 30 days #90 tabs 05/16/22 insulin glargine 100 unit/mL (3 32 unit (0.32 mL) subcut DAILY 90 05/16/22 mL) subcutaneous pen (Lantus days #28.8 mL Solostar U-100 Insulin) nitroglycerin 0.4 mg sublingual 0.4 mg sublingual Q5M for angina 05/16/22 tablet #25 tabs insulin lispro 100 unit/mL 4 - 6 unit (0.04 - 0.06 mL) subcut 05/22/22 subcutaneous pen (Admelog SoloStar TID #15 mL U-100 Insulin lispro) Allergies Allergy/AdvReac Type Severity Reaction Status Date / Time No Known Allergies Allergy Verified 05/16/22 11:07 [No Known Allergies*] [facility] Past Medical History Medical History Alopecia Anxiety Coronary artery disease Degenerative joint disease Depression Diabetes mellitus Diarrhea Diarrhea Dizziness Dyslipidemia Essential hypertension Gastroparesis Left knee pain Lower back pain Mild recurrent major depression Morbid obesity Osteoarthritis of left shoulder Polyarthralgia Pulmonary nodule Right hand pain Skin lesion Systolic CHF with reduced left ventricular function, NYHA class 2 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 Surgical History History of coronary artery bypass surgery History of hernia repair (~09/11/18) History of open heart surgery (~01/2017) History of tubal ligation (~1989) Hx of colonoscopy Family History Family History Father History of diabetes mellitus History of hypertension Mother Alzheimers disease Family/Other FH: mental illness Social History Social History Household Members: Family Household Members Other:: daughter Housing: House Alcohol intake: never Patient Tobacco Use Status: Former Tobacco user Tobacco use type: Cigarette e-Cigarette/Vaping Use: Never Used Second Hand Smoke Exposure: No service: No Current occupational status: unemployed Current occupation: rt handed Cognitive needs: No Hearing needs: No Vision needs: Yes Physical Exam ED Vital Signs: Vital Signs - 24 hr 05/29/22 15:26 Temperature 97.8 F Pulse Rate 92 Respiratory Rate 18 Blood Pressure 130/87 Pulse Oximetry 96 Oxygen Delivery Method Room Air BMI result Body Mass Index 43.0 Course Course Course Narrative: RME: 56-year-old female presents to ED for evaluation of results facial droop. Patient states he had facial droop last Sunday and Sunday ( that resolved on its own) so her doctor sent to ED for evaluation. Patient denies any other symptoms with the facial droop. Presently no facial droop or any other neuro deficits. Equal facial symmetry and patient open the mouth and using tongue normally. Cranial nerves intact. All extremities normal strength. Negative Romberg. Negative for slurred speech. negative pronator drift. NIH score 0. Patient is outside the window. Will do a head CT scan and labs. Presently no need for calling code stroke. Medications Administered Discontinued Medications Generic Name Dose Route Start Last Admin Trade Name Sabra PRN Reason Stop Dose Admin Aspirin 325 mg 05/29/22 21:11 05/29/22 21:23 Aspirin 325 Mg Tablet PO 05/29/22 21:12 325 mg ONCE ONE Administration Aspirin 81 mg 05/30/22 09:00 05/30/22 07:32 Aspirin Enteric Coated 81 Mg Tablet. PO 81 mg DAILY PHILLIP Administration Atorvastatin Calcium 80 mg 05/30/22 06:32 05/30/22 07:32 Atorvastatin Calcium 80 Mg Tablet PO 05/30/22 06:33 80 mg ONCE ONE Administration Ezetimibe 10 mg 05/30/22 09:00 05/30/22 10:33 Ezetimibe 10 Mg Tablet PO 10 mg DAILY PHILLIP Administration Fluoxetine HCl 40 mg 05/30/22 09:00 05/30/22 10:33 Fluoxetine Hcl 20 Mg Capsule PO 40 mg DAILY PHILLIP Administration Insulin Human Lispro 0 unit 05/30/22 07:30 05/30/22 17:08 Insulin Lispro 100 Unit/Ml 3 Ml Vial SUBCUT Not Given QIDACHS [facility] Protocol Iohexol 100 ml 05/29/22 21:48 05/29/22 21:49 Iohexol 350 Mg/Ml 100 Ml Infus..Btl IV 05/29/22 21:49 70 ml ONCE ONE Administration Metoclopramide HCl 5 mg 05/30/22 11:30 05/30/22 17:12 Metoclopramide Hcl 5 Mg Tablet PO Not Given QIDACHS [facility] Nitroglycerin 0.4 mg 05/30/22 09:00 05/30/22 15:18 Nitroglycerin 0.4 Mg Tab.Subl SUBLINGUAL Not Given Q5M [facility] Sacubitril/Valsartan 1 tab 05/30/22 09:00 05/30/22 10:33 Sacubitril/Valsartan 49/51 1 Tab Tablet PO 1 tab BID [facility] Administration Protocol Sucralfate 3 gm 05/30/22 09:00 05/30/22 10:33 Sucralfate 1 Gm Tablet PO 3 gm DAILY [facility] Administration Vitamin D 25 mcg 05/30/22 09:00 05/30/22 10:33 Cholecalciferol (Vitamin D3) 25 Mcg Tablet PO 25 mcg DAILY [facility] Administration Medical Decision Making Lab Data 05/29/22 22:33 05/29/22 22:33 Labs: Lab Results 05/29/22 05/29/22 05/29/22 Range/Units 17:26 17:26 17:26 WBC 9.0 (4.8-10.8) X10*3/uL RBC 5.61 H (4.20-5.50) X10*6/uL Hgb 14.5 (12.0-16.0) g/dl Hct 45.0 (37.0-47.0) % MCV 80.2 (80.0-98.0) fL MCH 25.8 L (27.0-33.0) pg MCHC 32.2 (31.0-35.0) g/dl RDW 14.9 (11.0-16.0) % Plt Count 280 (160-400) X10*3/uL MPV 9.6 (9.4-12.3) fL Immature Gran % (Auto) 0.2 (0.0-0.4) % Neut % (Auto) 44.4 L (45-73) % Lymph % (Auto) 45.2 H (20-40) % [place] % (Auto) 7.8 (2-11) % Eos % (Auto) 1.8 (0-4) % Baso % (Auto) 0.6 (0-2) % Lymph # (Auto) 4.1 (1.2-4.9) X10*3/uL [place] # (Auto) 0.7 (0.1-1.2) X10*3/uL Eos # (Auto) 0.2 (0.0-0.4) X10*3/uL Baso # (Auto) 0.1 (0.0-0.2) X10*3/uL Abs Immat Gran (auto) 0.02 (0.00-0.03) X10*3/uL Absolute Neuts (auto) 4.0 (2.0-8.3) x10*3/uL Absolute Nucleated RBC 0.000 (0.0-0.012) X10*3/uL Nucleated RBC % (auto) 0.0 (0.0-0.2) /100WBC PT 12.1 (10.0-13.1) SEC INR 1.1 (0.9-1.1) APTT 30.5 (26.0-36.4) SEC Sodium 140 (135-145) mmol/L Potassium 4.3 (3.3-5.1) mmol/L Chloride 102 (96-108) mmol/L Carbon Dioxide 29 (22-29) mmol/L Anion Gap 13 (12-20) BUN 14 (9-16) mg/dL Creatinine 0.98 (0.5-1.4) mg/dL Estim Creat Clear Calc 66.4 Estimated GFR 58 Random Glucose 121 H (60-115) mg/dL Calcium 9.7 D (8.4-10.2) mg/dL Total Bilirubin 1.2 H (0.0-1.0) mg/dL AST 18 (5-31) U/L ALT 18 (0-31) U/L Alkaline Phosphatase 77 (39-117) U/L Troponin I High Sens (<3.5-17.0) ng/L Total Protein 7.9 (6.5-8.0) g/dL Albumin 4.0 (3.5-5.0) g/dL 05/29/22 Range/Units 17:26 WBC (4.8-10.8) X10*3/uL RBC (4.20-5.50) X10*6/uL Hgb (12.0-16.0) g/dl Hct (37.0-47.0) % MCV (80.0-98.0) fL MCH (27.0-33.0) pg MCHC (31.0-35.0) g/dl RDW (11.0-16.0) % Plt Count (160-400) X10*3/uL MPV (9.4-12.3) fL Immature Gran % (Auto) (0.0-0.4) % Neut % (Auto) (45-73) % Lymph % (Auto) (20-40) % [place] % (Auto) (2-11) % Eos % (Auto) (0-4) % Baso % (Auto) (0-2) % Lymph # (Auto) (1.2-4.9) X10*3/uL [place] # (Auto) (0.1-1.2) X10*3/uL Eos # (Auto) (0.0-0.4) X10*3/uL Baso # (Auto) (0.0-0.2) X10*3/uL Abs Immat Gran (auto) (0.00-0.03) X10*3/uL Absolute Neuts (auto) (2.0-8.3) x10*3/uL Absolute Nucleated RBC (0.0-0.012) X10*3/uL Nucleated RBC % (auto) (0.0-0.2) /100WBC PT (10.0-13.1) SEC INR (0.9-1.1) APTT (26.0-36.4) SEC Sodium (135-145) mmol/L Potassium (3.3-5.1) mmol/L Chloride (96-108) mmol/L Carbon Dioxide (22-29) mmol/L Anion Gap (12-20) BUN (9-16) mg/dL Creatinine (0.5-1.4) mg/dL Estim Creat Clear Calc Estimated GFR Random Glucose (60-115) mg/dL Calcium (8.4-10.2) mg/dL Total Bilirubin (0.0-1.0) mg/dL AST (5-31) U/L ALT (0-31) U/L Alkaline Phosphatase (39-117) U/L Troponin I High Sens 3.8 (<3.5-17.0) ng/L Total Protein (6.5-8.0) g/dL Albumin (3.5-5.0) g/dL Discharge Plan Discharge Clinical Impression: Brain TIA Patient Disposition: Admitted As Inpatient Discharge Date/Time: 05/30/22 05:09
[2022-05-29 17:52] LABS: MANUAL DIFF FLAG NO
[2022-05-29 17:54] LABS: Basophils Absolute Auto 0.1 X10*3/uL (0.0-0.2); Basophils Percent Auto 0.6 % (0-2); Eosinophils Absolute Auto 0.2 X10*3/uL (0.0-0.4); Eosinophils Percent Auto 1.8 % (0-4); Hemoglobin 14.5 g/dl (12.0-16.0); Imm Gran Abs Auto 0.02 X10*3/uL (0.00-0.03); Imm Gran Pct Auto 0.2 % (0.0-0.4); Lymphocytes Absolute Auto 4.1 X10*3/uL (1.2-4.9); Lymphocytes Percent Auto 45.2 % (20-40); Mean Corpuscular HGB Conc 32.2 g/dl (31.0-35.0); Mean Corpuscular Hemoglobin 25.8 pg (27.0-33.0); Mean Corpuscular Volume 80.2 fL (80.0-98.0); Mean Platelet Volume 9.6 fL (9.4-12.3); Monocytes Absolute Auto 0.7 X10*3/uL (0.1-1.2); Monocytes Percent Auto 7.8 % (2-11); Neutrophils Percent Auto 44.4 % (45-73); Platelet Count 280 X10*3/uL (160-400); Red Blood Count 5.61 X10*6/uL (4.20-5.50); Red Cell Distribution Width 14.9 % (11.0-16.0)
[2022-05-29 18:00] LABS: INTERNATIONAL NORM RATIO 1.1 (0.9-1.1); Prothrombin Time 12.1 SEC (10.0-13.1)
[2022-05-29 18:03] LABS: Partial Thromboplastin Time 30.5 SEC (26.0-36.4)
[2022-05-29 18:09] LABS: Alanine Aminotransferase 18 U/L (0-31); Alkaline Phosphatase 77 U/L (39-117); Anion Gap 13 (12-20); Aspartate Amino Transferase 18 U/L (5-31); Bilirubin Total 1.2 mg/dL (0.0-1.0); Blood Urea Nitrogen 14 mg/dL (9-16); Calcium 9.7 mg/dL (8.4-10.2); Carbon Dioxide 29 mmol/L (22-29); Chloride 102 mmol/L (96-108); Creatinine Clr Calc Pharmacy 66.4; Estimated Glomerular Filt Rate 58; Glucose Random 121 mg/dL (60-115); Potassium 4.3 mmol/L (3.3-5.1); Sodium 140 mmol/L (135-145); Total Protein 7.9 g/dL (6.5-8.0)
[2022-05-29 18:17] LABS: Troponin-I High Sensitivity 3.8 ng/L (<3.5-17.0)
[2022-05-29 20:59] VITALS: BP 152/83; PULSE 89; RESP 16; TEMP 36.7; O2SAT 86
--- NOTE | 2022-05-29 21:12 | ED.GENADULT ---
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 No prior history of stroke or TIA but she does have a history of hypertension diabetes and high cholesterol. She called her MD today who told her to come to the ER for further evaluation. Currently without symptoms. Denies speech trouble when she had these episodes They will resolve spontaneously. She does get headaches at times Other symptoms include chest pain which is chronic and she attributes to his shoulder issues. No recent cough fevers or chills. No leg symptoms. No difficulty ambulating. Related Data Home Medications Medication Instructions Recorded Confirmed furosemide 40 mg tablet 40 mg PO DAILY 05/18/20 05/16/22 fluoxetine 40 mg capsule 40 mg PO DAILY 12/06/20 05/16/22 sacubitril 49 mg-valsartan 51 mg 1 tab PO BID 05/30/21 05/16/22 tablet (Entresto) aspirin 81 mg tablet,delayed 81 mg PO DAILY 08/25/21 05/16/22 release Previous Rx's Medication Instructions Recorded trazodone 100 mg tablet 100 mg PO BEDTIME PRN for insomnia 03/09/20 #30 tabs cyclobenzaprine 5 mg tablet 5 mg PO TID PRN muscle spasm #10 02/28/21 tabs blood-glucose meter (FreeStyle #1 ea 05/30/21 Lite Meter kit) lancets 33 gauge (TRUEplus Lancets) #200 ea 05/30/21 pen needle, diabetic 32 gauge x #125 ea 05/30/21/32 (BD Ultra-Fine Rika Pen Needle) cholecalciferol (vitamin D3) 25 25 mcg PO DAILY 30 days #30 caps 06/27/21 mcg (1,000 unit) capsule blood sugar diagnostic (FreeStyle #100 ea 08/17/21 Lite Strips) lidocaine 5 % topical patch 1 patch topical DAILY 30 days #30 08/23/21 ea metoclopramide HCl 5 mg tablet 5 mg PO QIDACHS #120 tabs 08/25/21 (Reglan) ezetimibe 10 mg tablet 10 mg PO DAILY #90 tabs 09/27/21 flash glucose scanning reader #1 ea 11/02/21 (FreeStyle Arsalan 2 [place]) flash glucose sensor (FreeStyle #2 ea 11/02/21 Arsalan 2 Sensor kit) amlodipine 10 mg tablet 10 mg PO DAILY 90 days #90 tabs 12/19/21 sucralfate 1 gram tablet 3 g PO DAILY #90 tabs 01/09/22 dulaglutide 1.5 mg/0.5 mL 1.5 mg (0.5 mL) subcut QWEEK 90 01/11/22 subcutaneous pen injector days #6.5 mL (Trulicity) metformin 1,000 mg tablet 1,000 mg PO BID #90 tabs 01/27/22 atorvastatin 80 mg tablet 80 mg PO BEDTIME 90 days #90 tabs 05/16/22 hydralazine 10 mg tablet 10 mg PO TID 30 days #90 tabs 05/16/22 insulin glargine 100 unit/mL (3 32 unit (0.32 mL) subcut DAILY 90 05/16/22 mL) subcutaneous pen (Lantus days #28.8 mL Solostar U-100 Insulin) nitroglycerin 0.4 mg sublingual 0.4 mg sublingual Q5M for angina 05/16/22 tablet #25 tabs insulin lispro 100 unit/mL 4 - 6 unit (0.04 - 0.06 mL) subcut 05/22/22 subcutaneous pen (Admelog SoloStar TID #15 mL U-100 Insulin lispro) Allergies Allergy/AdvReac Type Severity Reaction Status Date / Time No Known Allergies Allergy Verified 05/16/22 11:07 [No Known Allergies*] Review of Systems Constitutional: Comments: No fevers or chills Eyes: Comments: No acute vision changes Cardiovascular: Comments: No new chest pain Respiratory: Comments: No difficulty breathing or cough Gastrointestinal: Comments: No nausea vomiting diarrhea constipation Integumentary/Breasts: Comments: No rash Neurologic: Comments: Facial droop and left hand numbness is described, currently resolved PMF Past Medical History Medical History Alopecia Anxiety Coronary artery disease Degenerative joint disease Depression Diabetes mellitus Diarrhea Diarrhea Dizziness Dyslipidemia Essential hypertension Gastroparesis Left knee pain Lower back pain Mild recurrent major depression Morbid obesity Osteoarthritis of left shoulder Polyarthralgia Pulmonary nodule Right hand pain Skin lesion Systolic CHF with reduced left ventricular function, NYHA class 2 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 Surgical History History of coronary artery bypass surgery History of hernia repair (~09/11/18) History of open heart surgery (~01/2017) History of tubal ligation (~1989) Hx of colonoscopy Family History Family History Father History of diabetes mellitus History of hypertension Mother Alzheimers disease Family/Other FH: mental illness Social History Social History Household Members: Family Household Members Other:: daughter Housing: House Alcohol intake: never Patient Tobacco Use Status: Former Tobacco user Tobacco use type: Cigarette Smoked in Last 30 Days: No e-Cigarette/Vaping Use: Never Used Second Hand Smoke Exposure: No Use of substances other than those prescribed or required for medical reasons: No Advance Directives: No Advance Directives Information Provided: No Patient : No service: No Current occupational status: unemployed Current occupation: rt handed Cognitive needs: No Hearing needs: No Vision needs: Yes Physical Exam ED Vital Signs: Vital Signs - 24 hr 05/29/22 15:26 05/29/22 20:59 Temperature 97.8 F 98.0 F Pulse Rate 92 89 Respiratory Rate 18 16 Blood Pressure 130/87 152/83 H Pulse Oximetry 96 86 L Oxygen Delivery Method Room Air Room Air BMI result Body Mass Index 43.0 Const Other: Awake alert. No acute distress HENMT Other: Normocephalic atraumatic. Mild left posterior scalp tenderness to palpation which patient states is chronic Eyes Other: Pupils equal round reactive to light. Extraocular muscles intact. No nystagmus Neck Other: Neck full range of motion Chest Other: Tender palpation which reproduces symptoms Resp Other: Clear and equal bilaterally but mildly diminished Cardio Other: Regular rate and rhythm without murmurs rubs or gallops GI Other: Soft nontender nondistended Skin Other: Warm and dry without rash Neuro Other: No facial droop this time. Cranial nerves normal. Normal strength in 4 extremities. No pronator drift. Survey Superintendent strength equal bilaterally. Medical Decision Making Medical Decision Making MDM Narrative: Patient with symptoms consistent with stuttering TIAs. No evidence of acute stroke at this time. Will do neuro workup including CT scan. Will add on CT angiography of head neck. Awaiting EKG. 21:20. Labs are unremarkable. CT scan without contrast shows no acute findings or evidence of acute territorial infarct or hemorrhage. Case discussed with hospitalist and patient will be admitted for further workup of multiple TIAs. Treated with aspirin Lab Data 05/29/22 17:26 05/29/22 17: Labs: Lab Results 05/29/22 05/29/22 05/29/22 Range/Units 17:26 17:26 17: WBC 9.0 (4.8-10.8) X10*3/uL RBC 5.61 H (4.20-5.50) X10*6/uL Hgb 14.5 (12.0-16.0) g/dl Hct 45.0 (37.0-47.0) % MCV 80.2 (80.0-98.0) fL MCH 25.8 L (27.0-33.0) pg MCHC 32.2 (31.0-35.0) g/dl RDW 14.9 (11.0-16.0) % Plt Count 280 (160-400) X10*3/uL MPV 9.6 (9.4-12.3) fL Immature Gran % (Auto) 0.2 (0.0-0.4) % Neut % (Auto) 44.4 L (45-73) % Lymph % (Auto) 45.2 H (20-40) % [place] % (Auto) 7.8 (2-11) % Eos % (Auto) 1.8 (0-4) % Baso % (Auto) 0.6 (0-2) % Lymph # (Auto) 4.1 (1.2-4.9) X10*3/uL [place] # (Auto) 0.7 (0.1-1.2) X10*3/uL Eos # (Auto) 0.2 (0.0-0.4) X10*3/uL Baso # (Auto) 0.1 (0.0-0.2) X10*3/uL Abs Immat Gran (auto) 0.02 (0.00-0.03) X10*3/uL Absolute Neuts (auto) 4.0 (2.0-8.3) x10*3/uL Absolute Nucleated RBC 0.000 (0.0-0.012) X10*3/uL Nucleated RBC % (auto) 0.0 (0.0-0.2) /100WBC PT 12.1 (10.0-13.1) SEC INR 1.1 (0.9-1.1) APTT 30.5 (26.0-36.4) SEC Sodium 140 (135-145) mmol/L Potassium 4.3 (3.3-5.1) mmol/L Chloride 102 (96-108) mmol/L Carbon Dioxide 29 (22-29) mmol/L Anion Gap 13 (12-20) BUN 14 (9-16) mg/dL Creatinine 0.98 (0.5-1.4) mg/dL Estim Creat Clear Calc 66.4 Estimated GFR 58 Random Glucose 121 H (60-115) mg/dL Calcium 9.7 D (8.4-10.2) mg/dL Total Bilirubin 1.2 H (0.0-1.0) mg/dL AST 18 (5-31) U/L ALT 18 (0-31) U/L Alkaline Phosphatase 77 (39-117) U/L Troponin I High Sens (<3.5-17.0) ng/L Total Protein 7.9 (6.5-8.0) g/dL Albumin 4.0 (3.5-5.0) g/dL 05/29/22 Range/Units 17:26 WBC (4.8-10.8) X10*3/uL RBC (4.20-5.50) X10*6/uL Hgb (12.0-16.0) g/dl Hct (37.0-47.0) % MCV (80.0-98.0) fL MCH (27.0-33.0) pg MCHC (31.0-35.0) g/dl RDW (11.0-16.0) % Plt Count (160-400) X10*3/uL MPV (9.4-12.3) fL Immature Gran % (Auto) (0.0-0.4) % Neut % (Auto) (45-73) % Lymph % (Auto) (20-40) % [place] % (Auto) (2-11) % Eos % (Auto) (0-4) % Baso % (Auto) (0-2) % Lymph # (Auto) (1.2-4.9) X10*3/uL [place] # (Auto) (0.1-1.2) X10*3/uL Eos # (Auto) (0.0-0.4) X10*3/uL Baso # (Auto) (0.0-0.2) X10*3/uL Abs Immat Gran (auto) (0.00-0.03) X10*3/uL Absolute Neuts (auto) (2.0-8.3) x10*3/uL Absolute Nucleated RBC (0.0-0.012) X10*3/uL Nucleated RBC % (auto) (0.0-0.2) /100WBC PT (10.0-13.1) SEC INR (0.9-1.1) APTT (26.0-36.4) SEC Sodium (135-145) mmol/L Potassium (3.3-5.1) mmol/L Chloride (96-108) mmol/L Carbon Dioxide (22-29) mmol/L Anion Gap (12-20) BUN (9-16) mg/dL Creatinine (0.5-1.4) mg/dL Estim Creat Clear Calc Estimated GFR Random Glucose (60-115) mg/dL Calcium (8.4-10.2) mg/dL Total Bilirubin (0.0-1.0) mg/dL AST (5-31) U/L ALT (0-31) U/L Alkaline Phosphatase (39-117) U/L Troponin I High Sens 3.8 (<3.5-17.0) ng/L Total Protein (6.5-8.0) g/dL Albumin (3.5-5.0) g/dL Discharge Plan Discharge Clinical Impression: Brain TIA Patient Disposition: Admitted As Inpatient Prescriptions: No Action trazodone 100 mg tablet 100 mg PO BEDTIME PRN (Reason: for insomnia) Qty: 30 0RF cholecalciferol (vitamin D3) 25 mcg (1,000 unit) capsule 25 mcg PO DAILY 30 Days Qty: 30 11RF (DME) FreeStyle Lite Strips Strip See Rx Instructions .ROUTE .MEDSUPPLY Qty: 100 11RF Rx Instructions: As directed three times a day lidocaine 5 % adhesive patch,medicated 1 patch topical DAILY 30 Days Qty: 30 2RF Rx Instructions: leave on most painful area for up to 12 hrs ezetimibe 10 mg tablet 10 mg PO DAILY Qty: 90 2RF amlodipine 10 mg tablet 10 mg PO DAILY 90 Days Qty: 90 1RF sucralfate 1 gram tablet 3 g PO DAILY Qty: 90 3RF metformin 1,000 mg tablet 1,000 mg PO BID Qty: 90 1RF insulin lispro [Admelog SoloStar U-100 Insulin] 100 unit/mL insulin pen 4 - 6 unit subcut TID Qty: 15 1RF fluoxetine 40 mg capsule 40 mg PO DAILY Trulicity 1.5 mg/0.5 mL pen injector 1.5 mg subcut QWEEK 90 Days Qty: 6.5 2RF (DME) FreeStyle Arsalan 2 Sensor Kit See Rx Instructions .Route Qty: 2 11RF Rx Instructions: As directed (DME) FreeStyle Arsalan 2 [place] Misc See Rx Instructions .Route Qty: 1 0RF Rx Instructions: As directed cyclobenzaprine 5 mg tablet 5 mg PO TID PRN (Reason: muscle spasm) Qty: 10 0RF nitroglycerin 0.4 mg tablet, sublingual 0.4 mg sublingual Q5M Qty: 25 0RF atorvastatin 80 mg tablet 80 mg PO BEDTIME 90 Days Qty: 90 1RF hydralazine 10 mg tablet 10 mg PO TID 30 Days Qty: 90 1RF Lantus Solostar U-100 Insulin 100 unit/mL (3 mL) insulin pen 32 unit subcut DAILY 90 Days Qty: 28.8 3RF furosemide 40 mg tablet 40 mg PO DAILY Entresto 49-51 mg tablet 1 tab PO BID (DME) pen needle, diabetic [BD Ultra-Fine Rika Pen Needle] 32 gauge x 5/32 needle See Rx Instructions .ROUTE .MEDSUPPLY Qty: 125 11RF Rx Instructions: As directed four times a day (DME) blood-glucose meter [FreeStyle Lite Meter] Kit See Rx Instructions .ROUTE .MEDSUPPLY Qty: 1 0RF Rx Instructions: to test blood glucose 4x/day (DME) lancets [TRUEplus Lancets] 33 gauge misc See Rx Instructions .ROUTE .MEDSUPPLY Qty: 200 8RF Rx Instructions: As directed 4 x/day aspirin 81 mg tablet,delayed release (DR/EC) 81 mg PO DAILY metoclopramide HCl [Reglan] 5 mg tablet 5 mg PO QIDACHS Qty: 120 6RF Rx Instructions: Will monitor for any interaction with prozac
[2022-05-29] MEDS: Aspirin 325 MG TABLET PO (21:23)
--- NOTE | 2022-05-29 21:34 | PC.NURSE ---
pt passed swallow evaluation, medications given
[2022-05-29] MEDS: iohexoL 350 MG/ML 100 ML INFUS..BTL IV (21:49)
--- NOTE | 2022-05-29 21:58 | PM.IMHP ---
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 She she reports that she also had numbness tingling on the left side of her body including her upper lower extremities. She reports that these episodes lasted less than 10 minutes, occurred on 3 different occasions starting Sunday of last week, repeat episodes on Sunday and Sunday. She called her doctor who asked her to come to the ER. She reports that currently she still has some heavy speech with some residual weakness in her left side but not as severe as when she initially had some. she denies any headache but reports blurry vision, reports no palpitations, no chest pain, no abdominal pain nausea or vomiting, no diarrhea constipation, no urinary symptoms and no lower extremity edema. On arrival to the ED patient hemodynamically stable with no significant abnormal vitals with a blood pressure 130/87, labs unremarkable head CT shows no definite acute intracranial abnormality, mild to moderate multifocal hypoattenuation throughout the supratentorial white matter is nonspecific and can be further assessed with an MRI, Head and neck angiogram shows no arterial high-grade stenosis or large vessel occlusion, there is multifocal intracranial atherosclerotic disease moderate to high-grade stenosis of the paraclinoid and supraclinoid left ICA as well as origin of the left A1 and M1 segments, 1.5 cm hypodense nodule in the inferior left thyroid, Review of Systems Review of Systems: Yes all other systems are reviewed and are negative [facility] Medical History Alopecia Anxiety Coronary artery disease Degenerative joint disease Depression Diabetes mellitus Diarrhea Diarrhea Dizziness Dyslipidemia Essential hypertension Gastroparesis Left knee pain Lower back pain Mild recurrent major depression Morbid obesity Osteoarthritis of left shoulder Polyarthralgia Pulmonary nodule Right hand pain Skin lesion Systolic CHF with reduced left ventricular function, NYHA class 2 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 Family History Father History of diabetes mellitus History of hypertension Mother Alzheimers disease Family/Other FH: mental illness Surgical History History of coronary artery bypass surgery History of hernia repair (~09/11/18) History of open heart surgery (~01/2017) History of tubal ligation (~1989) Hx of colonoscopy Social History Household Members: Family Household Members Other:: daughter Housing: House Alcohol intake: never Patient Tobacco Use Status: Former Tobacco user Tobacco use type: Cigarette Smoked in Last 30 Days: No e-Cigarette/Vaping Use: Never Used Second Hand Smoke Exposure: No Use of substances other than those prescribed or required for medical reasons: No Advance Directives: No Advance Directives Information Provided: No Patient : No service: No Current occupational status: unemployed Current occupation: rt handed Cognitive needs: No Hearing needs: No Vision needs: Yes Meds Allergies Allergy/AdvReac Type Severity Reaction Status Date / Time No Known Allergies Allergy Verified 05/16/22 11:07 [No Known Allergies*] Home Medications Medication Instructions Recorded Confirmed Last Taken Type furosemide 40 mg tablet 40 mg PO DAILY 05/18/20 05/16/22 Unknown History fluoxetine 40 mg capsule 40 mg PO DAILY 12/06/20 05/16/22 Unknown History sacubitril 49 mg-valsartan 51 mg 1 tab PO BID 05/30/21 05/16/22 Unknown History tablet (Entresto) aspirin 81 mg tablet,delayed 81 mg PO DAILY 08/25/21 05/16/22 Unknown History release ammonium lactate 12 % topical cream 1 appl topical BID 05/29/22 05/29/22 Unknown History cream base no.193 (bulk) 1 appl topical TID 05/29/22 05/29/22 Unknown History (Versatile topical cream) naproxen 125 mg/5 mL oral 250 mg PO BID PRN Pain (Scale 05/29/22 05/29/22 Unknown History suspension Score 4-6) Physical Exam Vital Signs and Narrative: Vital Signs: Last Vital Signs Temp 98.0 F 05/29/22 20:59 Pulse 89 05/29/22 20:59 Resp 16 05/29/22 20:59 BP 152/83 H 05/29/22 20:59 Pulse Ox 86 L 05/29/22 20:59 O2 Del Method 05/29/22 20:59 BMI result Body Mass Index 43.0 Const: General: cooperative and no acute distress Orientation/consciousness: patient oriented x3 Eyes: General: appearance normal, both eyes and all related structures Resp: Effort & Inspection: normal respiratory effort Auscultation: clear to auscultation bilaterally Cardio: Rate: regular rate Rhythm: regular rhythm GI: Palpation (GI): Soft to palpation Auscultation: normal bowel sounds Skin: General skin exam: no rashes or lesions noted Neuro: Other: Cranial nerves 2-12 intact slight droop of left corner of mouth Strength 5/5 in the right upper and lower extremity, strength is 5/5 in left upper extremity, 4/5 in left lower extremity Sensation intact General: patient oriented x3 Cognition (Neuro): normal cognition Extrem: General: Yes normal to inspection and Yes no pedal edema Results Labs 05/29/22 17:26 05/29/22 17:26 Labs: Laboratory Results - last 24 hr 05/29/22 05/29/22 05/29/22 17:26 17:26 17:26 MCV 80.2 MCH 25.8 L MCHC 32.2 RDW 14.9 Plt Count 280 MPV 9.6 Immature Gran % (Auto) 0.2 Neut % (Auto) 44.4 L Lymph % (Auto) 45.2 H [place] % (Auto) 7.8 Eos % (Auto) 1.8 Baso % (Auto) 0.6 Lymph # (Auto) 4.1 [place] # (Auto) 0.7 Eos # (Auto) 0.2 Baso # (Auto) 0.1 Abs Immat Gran (auto) 0.02 Absolute Neuts (auto) 4.0 Absolute Nucleated RBC 0.000 Nucleated RBC % (auto) 0.0 PT 12.1 INR 1.1 APTT 30.5 Anion Gap 13 Estim Creat Clear Calc 66.4 Estimated GFR 58 Random Glucose 121 H Calcium 9.7 D Total Bilirubin 1.2 H AST 18 ALT 18 Alkaline Phosphatase 77 Troponin I High Sens Total Protein 7.9 Albumin 4.0 05/29/22 17:26 MCV MCH MCHC RDW Plt Count MPV Immature Gran % (Auto) Neut % (Auto) Lymph % (Auto) [place] % (Auto) Eos % (Auto) Baso % (Auto) Lymph # (Auto) [place] # (Auto) Eos # (Auto) Baso # (Auto) Abs Immat Gran (auto) Absolute Neuts (auto) Absolute Nucleated RBC Nucleated RBC % (auto) PT INR APTT Anion Gap Estim Creat Clear Calc Estimated GFR Random Glucose Calcium Total Bilirubin AST ALT Alkaline Phosphatase Troponin I High Sens 3.8 Total Protein Albumin Imaging Radiologist's Impressions: Impressions Head CT 05/29/22 17:15 IMPRESSION: No definite acute intracranial abnormality. Mild to moderate multifocal hypoattenuation throughout the supratentorial white matter is nonspecific and can be further assessed with a MRI of the brain as clinically indicated. Assessment and Plan (1) Brain TIA: Status: Acute (2) CVA (cerebral vascular accident): Status: Acute Plan 56-year-old female Beninese speaking, with multiple risk factors including hypertension, diabetes, hyperlipidemia, presents to the hospital with complaints of facial droop, dysarthria, as well as left-sided weakness found to have possible TIA /CVA # TIA/CVA - with residual 4/5 strength in the left lower extremity and some drooping of the left corner of mouth - patient is on aspirin and high-dose statin at home history of CAD - head CT and CT angiogram results as mentioned above - will obtain brain MRI - neurology consulted - telemetry # CAD - continue aspirin, statin, # diabetes - continue home insulin - will add low-dose sliding scale insulin - diabetic diet # hyperlipidemia - continue statin # hypertension - stable - continue antihypertensives # history of CHF with reduced ejection fraction - systolic - continue home Lasix - not in exacerbation DVT prophylaxis: Early ambulation Time Spent With Patient Time: Total time managing care of this patient today ____ minutes. Quality Stroke Does the patient have a stroke diagnosis?: No VTE Prior VTE?: No VTE Risk Level:: Medical - low VTE Device Contraindication: Treatment Not Indicated VTE Drug Contraindication: Treatment Not Indicated
[2022-05-29 22:40] LABS: Basophils Absolute Auto 0.1 X10*3/uL (0.0-0.2); Basophils Percent Auto 0.6 % (0-2); Eosinophils Absolute Auto 0.2 X10*3/uL (0.0-0.4); Eosinophils Percent Auto 2.2 % (0-4); Hematocrit 42.2 % (37.0-47.0); Hemoglobin 13.6 g/dl (12.0-16.0); Imm Gran Abs Auto 0.01 X10*3/uL (0.00-0.03); Imm Gran Pct Auto 0.1 % (0.0-0.4); Lymphocytes Absolute Auto 3.8 X10*3/uL (1.2-4.9); Lymphocytes Percent Auto 42.6 % (20-40); MANUAL DIFF FLAG NO; Mean Corpuscular HGB Conc 32.2 g/dl (31.0-35.0); Mean Corpuscular Hemoglobin 25.8 pg (27.0-33.0); Mean Corpuscular Volume 79.9 fL (80.0-98.0); Mean Platelet Volume 9.3 fL (9.4-12.3); Monocytes Absolute Auto 0.7 X10*3/uL (0.1-1.2); Neutrophils Absolute Auto 4.2 x10*3/uL (2.0-8.3); Neutrophils Percent Auto 46.5 % (45-73); Platelet Count 248 X10*3/uL (160-400); Red Blood Count 5.28 X10*6/uL (4.20-5.50)
[2022-05-29 22:52] LABS: Anion Gap 12 (12-20); Blood Urea Nitrogen 15 mg/dL (9-16); Calcium 9.2 mg/dL (8.4-10.2); Carbon Dioxide 25 mmol/L (22-29); Chloride 105 mmol/L (96-108); Creatinine Clr Calc Pharmacy 74.7; Estimated Glomerular Filt Rate > 60; Glucose Random 105 mg/dL (60-115); Potassium 3.8 mmol/L (3.3-5.1); Sodium 138 mmol/L (135-145)
[2022-05-30 01:48] VITALS: BP 123/74; PULSE 87; RESP 10; O2SAT 95
[2022-05-30 02:07] LABS: COVID-19 Test Negative (Negative); IDNOW Serial# 6674DD1D
[2022-05-30 05:26] VITALS: BP 144/80; PULSE 89; RESP 18; TEMP 36.8; O2SAT 96
[2022-05-30 06:23] VITALS: BMI 42.7
[2022-05-30 07:15] VITALS: BP 140/79; PULSE 86; RESP 20; TEMP 36.1; O2SAT 96
[2022-05-30] MEDS: Atorvastatin Calcium 80 MG TABLET PO (07:32)
[2022-05-30] MEDS: Aspirin Enteric Coated 81 MG TABLET.DR PO (07:32)
[2022-05-30 07:37] LABS: Glucose, Whole Blood 139 mg/dL (60-115)
--- NOTE | 2022-05-30 08:09 | PHA.MEDREC ---
Pharmacy Consult ? Medication Reconciliation Pharmacy has completed the medication reconciliation.
[2022-05-30 08:22] VITALS: BP 140/79; PULSE 86; O2SAT 96
[2022-05-30 08:36] LABS: Cholesterol 80 mg/dL; HDL Cholesterol 25 mg/dL; LDL Cholesterol Calculated 30 mg/dl; Triglycerides 129 mg/dL
--- NOTE | 2022-05-30 09:25 | PM.NEUROCN ---
History of Present Illness Data of Consult Service Date: 05/30/22 Primary Care Provider: Chen Chase MD HPI Reason for consult: weakness and numbness on left side aand trouble speaking This is a 56-year-old female with history of hypertension, diabetes, arthritis, systolic CHF with decreased EF, dyslipidemia, CAD status post CABG, presents to the hospital with complaints of left facial droop, numbness, as well as the inability to speak for few minutes.? She had 3 episodes of numbness and tingling on the left side of her body including her upper lower extremities lasting less than 10 minutes, starting Sunday of last week, with repeat episodes on Sunday and Sunday. All Sx have since resolved. She denies any headache but reports blurry vision, reports no palpitations, no chest pain,. In ED her blood pressure was 130/87,?labs unremarkable. Head CT shows no definite acute intracranial abnormality, mild to moderate multifocal hypoattenuation throughout the supratentorial white matter., Head and neck angiogram shows no arterial high-grade stenosis or large vessel occlusion, there is multifocal intracranial atherosclerotic disease moderate to high-grade stenosis of the paraclinoid and supraclinoid left ICA as well as origin of the left A1 and M1 segments, Review of Systems Review of Systems: Yes all other systems are reviewed and are negative PMFSH Past Medical History Medical History Alopecia Anxiety Coronary artery disease Degenerative joint disease Depression Diabetes mellitus Diarrhea Diarrhea Dizziness Dyslipidemia Essential hypertension Gastroparesis Left knee pain Lower back pain Mild recurrent major depression Morbid obesity Osteoarthritis of left shoulder Polyarthralgia Pulmonary nodule Right hand pain Skin lesion Systolic CHF with reduced left ventricular function, NYHA class 2 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 Family History Family History Father History of diabetes mellitus History of hypertension Mother Alzheimers disease Family/Other FH: mental illness Surgical History Surgical History History of coronary artery bypass surgery History of hernia repair (~09/11/18) History of open heart surgery (~01/2017) History of tubal ligation (~1989) Hx of colonoscopy Social History Social History Household Members: Family Household Members Other:: daughter Housing: House Alcohol intake: never Patient Tobacco Use Status: Former Tobacco user Tobacco use type: Cigarette Smoked in Last 30 Days: No e-Cigarette/Vaping Use: Never Used Second Hand Smoke Exposure: No Use of substances other than those prescribed or required for medical reasons: No Advance Directives: No Advance Directives Information Provided: No Advance Directives on File: No Patient : No service: No Current occupational status: unemployed Current occupation: rt handed Cognitive needs: No Hearing needs: No Vision needs: Yes Meds Allergies Allergy/AdvReac Type Severity Reaction Status Date / Time No Known Allergies Allergy Verified 05/16/22 11:07 [No Known Allergies*] Active Medications: Current Medications Acetaminophen (Acetaminophen 325 Mg Tablet) 650 mg PO Q6H PRN PRN Reason: Pain, Mild (Pain Scale 1-3) Aspirin (Aspirin Enteric Coated 81 Mg Tablet.Dr) 81 mg PO DAILY [facility] Last Admin: 05/30/22 07:32 Dose: 81 mg Atorvastatin Calcium (Atorvastatin Calcium 80 Mg Tablet) 80 mg PO BEDTIME [facility] Dextrose (Dextrose 50 % 25 Gm/50 Ml Syringe) 25 gm IVPUSH Q15M PRN; Protocol PRN Reason: per Hypoglycemia Standing Ord. Docusate Sodium (Docusate Sodium 100 Mg Capsule) 100 mg PO DAILY PRN PRN Reason: Constipation Ezetimibe (Ezetimibe 10 Mg Tablet) 10 mg PO DAILY [facility] Fluoxetine HCl (Fluoxetine Hcl 20 Mg Capsule) 40 mg PO DAILY [facility] Glucose (Glucose Gel 15 Gm Gel..Gram.) 15 gm PO Q15M PRN; Protocol PRN Reason: per Hypoglycemia Standing Ord. Insulin Human Lispro (Insulin Lispro 100 Unit/Ml 3 Ml Vial) 0 unit SUBCUT QIDACHS [facility]; Protocol Last Admin: 05/30/22 07:28 Dose: Not Given Metoclopramide HCl (Metoclopramide Hcl 5 Mg Tablet) 5 mg PO QIDACHS [facility] Nitroglycerin (Nitroglycerin 0.4 Mg Tab.Subl) 0.4 mg SUBLINGUAL Q5M [facility] Non-Formulary Medication (Cream Base No.193 (Bulk) [Versatile]) 1 appl TOPICAL TID [facility] Ondansetron HCl (Ondansetron Hcl 4 Mg/2 Ml Vial) 4 mg IVPUSH Q8H PRN PRN Reason: Nausea and Vomiting Pharmacy Consult (Consult Rx Perform Med Rec) 1 each MISCELLANE ONCE PRN PRN Reason: Consult order Sacubitril/Valsartan (Sacubitril/Valsartan 49/51 1 Tab Tablet) 1 tab PO BID [facility]; Protocol Sucralfate (Sucralfate 1 Gm Tablet) 3 gm PO DAILY [facility] Trazodone HCl (Trazodone Hcl 100 Mg Tablet) 100 mg PO BEDTIME PRN PRN Reason: for insomnia Vitamin D (Cholecalciferol (Vitamin D3) 25 Mcg Tablet) 25 mcg PO DAILY [facility] Home Medications Medication Instructions Recorded Confirmed Last Taken Type fluoxetine 40 mg capsule 40 mg PO DAILY 12/06/20 05/30/22 Unknown History sacubitril 49 mg-valsartan 51 mg 1 tab PO BID 05/30/21 05/30/22 Unknown History tablet (Entresto) aspirin 81 mg tablet,delayed 81 mg PO DAILY 08/25/21 05/30/22 Unknown History release ammonium lactate 12 % topical cream 1 appl topical BID 05/29/22 05/29/22 Unknown History cream base no.193 (bulk) 1 appl topical TID 05/29/22 05/29/22 Unknown History (Versatile topical cream) naproxen 125 mg/5 mL oral 250 mg PO BID PRN Pain (Scale 05/29/22 05/29/22 Unknown History suspension Score 4-6) dulaglutide 1.5 mg/0.5 mL 1.5 mg subcut WE 05/30/22 05/30/22 Unknown History subcutaneous pen injector (Trulicity) Physical Exam Vital Signs: Vital Signs: Last Vital Signs Temp 97.0 F 05/30/22 07:15 Pulse 86 05/30/22 08:22 Resp 20 05/30/22 07:15 BP 140/79 H 05/30/22 08:22 Pulse Ox 96 05/30/22 08:22 O2 Del Method 05/30/22 07:15 BMI result Body Mass Index 42.7 Const: Other: Awake alert. No acute distress General: cooperative and no acute distress Orientation/consciousness: patient oriented x3 HEENT: Other: Normocephalic atraumatic. Mild left posterior scalp tenderness to palpation which patient states is chronic Eyes: Other: Pupils equal round reactive to light. Extraocular muscles intact. No nystagmus General: appearance normal, both eyes and all related structures Neck: Other: Neck full range of motion Chest: Other: Tender palpation which reproduces symptoms Resp: Other: Clear and equal bilaterally but mildly diminished Effort & Inspection: normal respiratory effort Auscultation: clear to auscultation bilaterally Cardio: Other: Regular rate and rhythm without murmurs rubs or gallops Rate: regular rate Rhythm: regular rhythm GI: Other: Soft nontender nondistended Palpation (GI): Soft to palpation Auscultation: normal bowel sounds Skin: Other: Warm and dry without rash General skin exam: no rashes or lesions noted Neuro: Other: Non focal exam. Cranial nerves 2-12 intact Strength 5/5 in all four extremities. Plantars flexor. General: patient oriented x3 Cognition (Neuro): normal cognition Extrem: General: Yes normal to inspection and Yes no pedal edema Results Labs 05/29/22 22:33 05/29/22 22:33 Labs: Short CBC 05/29/22 05/29/22 Range/Units 17:26 22:33 WBC 9.0 9.0 (4.8-10.8) X10*3/uL Hgb 14.5 13.6 (12.0-16.0) g/dl Hct 45.0 42.2 (37.0-47.0) % Plt Count 280 248 (160-400) X10*3/uL BMP 05/29/22 05/29/22 17:26 22:33 Sodium 140 138 Potassium 4.3 3.8 Chloride 102 105 Carbon Dioxide 29 25 BUN 14 15 Creatinine 0.98 0.87 Calcium 9.7 D 9.2 Liver Function 05/29/22 Range/Units 17:26 Total Bilirubin 1.2 H (0.0-1.0) mg/dL AST 18 (5-31) U/L ALT 18 (0-31) U/L Alkaline Phosphatase 77 (39-117) U/L Albumin 4.0 (3.5-5.0) g/dL Assessment and Plan (1) CVA (cerebral vascular accident): Status: Acute suspect small vessel disease with microvascular infarcts. Recom.: MRI brain. Control of BP and sugar. ASA 81mg (2) Brain TIA: Status: Acute Plan 56-year-old female Tajik speaking, with multiple risk factors including hypertension, diabetes, hyperlipidemia, presents to the hospital with complaints of facial droop, dysarthria, as well as left-sided weakness found to have possible TIA /CVA # TIA/CVA - with residual 4/5 strength in the left lower extremity and some drooping of the left corner of mouth - patient is on aspirin and high-dose statin at home history of CAD - head CT and CT angiogram results as mentioned above - will obtain brain MRI - neurology consulted - telemetry # CAD - continue aspirin, statin, # diabetes - continue home insulin - will add low-dose sliding scale insulin - diabetic diet # hyperlipidemia - continue statin # hypertension - stable - continue antihypertensives # history of CHF with reduced ejection fraction - systolic - continue home Lasix - not in exacerbation DVT prophylaxis: Early ambulation Time Spent With Patient Time: Total time managing care of this patient today ____ minutes. Procedures Date of Service Date of Service: 05/30/22
[2022-05-30] MEDS: Cholecalciferol (Vitamin D3) 25 MCG TABLET PO (10:33)
[2022-05-30] MEDS: Sacubitril/Valsartan 49/51 1 TAB TABLET PO (10:33)
[2022-05-30] MEDS: Ezetimibe 10 MG TABLET PO (10:33)
[2022-05-30] MEDS: Sucralfate 1 GM TABLET 3 GM PO (10:33)
[2022-05-30] MEDS: FLUoxetine HCl 20 MG CAPSULE 40 MG PO (10:33)
[2022-05-30 10:54] LABS: Glucose, Whole Blood 199 mg/dL (60-115)
[2022-05-30 11:36] VITALS: BP 126/71; PULSE 92; RESP 20; TEMP 36.2; O2SAT 96
[2022-05-30] MEDS: Metoclopramide HCl 5 MG TABLET PO (11:37)
[2022-05-30] MEDS: Insulin Lispro 100 UNIT/ML 3 ML VIAL SUBCUT (11:37)
--- NOTE | 2022-05-30 11:40 | MHC.CM.PN ---
with interpertator met with pt who lives with dgter is independet is vax x 1 dc plan home no services
--- NOTE | 2022-05-30 15:39 | MHC.CM.PN ---
Patient has been medically cleared for dc to home today, self care.
--- NOTE | 2022-05-30 15:39 | PM.DS ---
DS: Providers Provider Date of Service: 05/30/22 Date of admission: 05/29/22 21:48 Date of discharge: 05/30/22 Primary care physician: Chen Chase MD Consults: 05/29/22 21:54 Consult to Neurology Routine Consulting Provider: [facility] Reason for consultation: CVA Has provider been notified: No DS: Diagnosis Discharge Diagnosis (1) Brain TIA: Status: Acute (2) Morbid obesity: Status: Acute (3) Small vessel disease, cerebrovascular: Status: Acute DS: Summary Hospital Course Hospital Course: from admission H+P by hospitalist Yandel Stone MD, 05/29/22: ?56-year-old female with past medical history of hypertension, diabetes, arthritis, systolic CHF with rEF, dyslipidemia, CAD status post CABG, presents to the hospital with complaints of left facial droop, numbness, as well as the inability to speak for few minutes.? She she reports that she also had numbness tingling on the left side of her body including her upper lower extremities.? She reports that these episodes lasted less than 10 minutes, occurred on 3 different occasions starting Sunday of last week, repeat episodes on Sunday and Sunday.? She called her doctor who asked her to come to the ER.? She reports that currently she still has some heavy speech with some residual weakness in her left side but not as severe as when she initially had some. ? she denies any headache but reports blurry vision, reports no palpitations, no chest pain, no abdominal pain nausea or vomiting, no diarrhea constipation, no urinary symptoms and no lower extremity edema.? On arrival to the ED patient hemodynamically stable with no significant abnormal vitals with a blood pressure 130/87, ?labs unremarkable ?head CT shows no definite acute intracranial abnormality, mild to moderate multifocal hypoattenuation throughout the supratentorial white matter is nonspecific and can be further assessed with an MRI, Head and neck angiogram shows no arterial high-grade stenosis or large vessel occlusion, there is multifocal intracranial atherosclerotic disease moderate to high-grade stenosis of the paraclinoid and supraclinoid left ICA as well as origin of the left A1 and M1 segments, ?1.5 cm hypodense nodule in the inferior left thyroid, She was admitted to the [facility]. Left facial droop, speech difficulties, and L-sided numbness resolved completely. She did not tolerate MRI due to claustrophobia and refused anti-anxiety medication to re-try the MRI. Neurology consulted; impression was of suspected CVA, likely TIA with small vessel microvascular disease. Attention was focused on secondary prevention. She was discharged to continue aspirin 81 mg/d and atorvastatin 80 mg/d. The importance of glycemic control was counseled, especially in light of A1c of 11.5 on 05/15/22. As for the incidental thyroid nodule, she should follow-up with her primary care doctor to schedule an outpatient thyroid US. Time Spent with Patient Time attestation: Total time managing care of this patient today __35__ minutes. Discharge coordination time: Greater than 30 minutes Quality: Safe Use of Opioids Does Pt have an Active Cancer Diagnosis on the Problem List?: No Quality: Stroke Does the patient have a stroke diagnosis?: Yes Reason for No Anti-thrombotic at DC: N/A - Med Ordered Reason for No Anticoagulant at DC: Not indicated Reason Not Initiating IV-Tpa: Not indicated Reason for No Anti-thrombotic by Day Two: N/A - Med Ordered Reason for No Statin at DC: N/A - Med Ordered Physical Exam Vital Signs: Vital Signs: Last Vital Signs Temp 97.2 F 05/30/22 11:36 Pulse 92 05/30/22 11:36 Resp 20 05/30/22 11:36 BP 126/71 05/30/22 11:36 Pulse Ox 96 05/30/22 11:36 O2 Del Method 05/30/22 11:36 BMI result Body Mass Index 42.7 Gen: in no acute distress HEENT: sclera anicteric, moist mucus membranes Neck: supple Lungs: clear to auscultation bilaterally Heart: regular rate and rhythm, no murmurs Abd: soft, non-tender, non-distended, morbid obesity Ext: no edema Skin: warm/well-perfused Neuro: alert and oriented x3, no focal findings Psych: appropriate affect DS: Data Data Completed and Pending Completed studies during hospitalization [Text1]: Laboratory Results WBC 9.0 X10*3/uL (4.8-10.8) 05/29/22 22:33 RBC 5.28 X10*6/uL (4.20-5.50) 05/29/22 22:33 Hgb 13.6 g/dl (12.0-16.0) 05/29/22: Hct 42.2 % (37.0-47.0) 05/29/22: MCV 79.9 fL (80.0-98.0) L 05/29/22: MCH 25.8 pg (27.0-33.0) L 05/29/22: MCHC 32.2 g/dl (31.0-35.0) 05/29/22: RDW 15.0 % (11.0-16.0) 05/29/22: Plt Count 248 X10*3/uL (160-400) 05/29/22: MPV 9.3 fL (9.4-12.3) L 05/29/22: Immature Gran % (Auto) 0.1 % (0.0-0.4) 05/29/22: Neut % (Auto) 46.5 % (45-73) 05/29/22: Lymph % (Auto) 42.6 % (20-40) H 05/29/22: [place] % (Auto) 8.0 % (2-11) 05/29/22: Eos % (Auto) 2.2 % (0-4) 05/29/22: Baso % (Auto) 0.6 % (0-2) 05/29/22: Lymph # (Auto) 3.8 X10*3/uL (1.2-4.9) 05/29/22: [place] # (Auto) 0.7 X10*3/uL (0.1-1.2) 05/29/22: Eos # (Auto) 0.2 X10*3/uL (0.0-0.4) 05/29/22: Baso # (Auto) 0.1 X10*3/uL (0.0-0.2) 05/29/22: Abs Immat Gran (auto) 0.01 X10*3/uL (0.00-0.03) 05/29/22: Absolute Neuts (auto) 4.2 x10*3/uL (2.0-8.3) 02/06/23 22:33 Absolute Nucleated RBC 0.000 X10*3/uL (0.0-0.012) 05/29/22 22:33 Nucleated RBC % (auto) 0.0 /100WBC (0.0-0.2) 05/29/22 22:33 PT 12.1 SEC (10.0-13.1) 05/29/22 17:26 INR 1.1 (0.9-1.1) 05/29/22 17:26 APTT 30.5 SEC (26.0-36.4) 05/29/22 17:26 Sodium 138 mmol/L (135-145) 05/29/22 22:33 Potassium 3.8 mmol/L (3.3-5.1) 05/29/22 22:33 Chloride 105 mmol/L (96-108) 05/29/22 22:33 Carbon Dioxide 25 mmol/L (22-29) 05/29/22 22:33 Anion Gap 12 (12-20) 05/29/22 22:33 BUN 15 mg/dL (9-16) 05/29/22 22:33 Creatinine 0.87 mg/dL (0.5-1.4) 05/29/22 22:33 Estim Creat Clear Calc 74.7 05/29/22 22:33 Estimated GFR > 60 05/29/22 22:33 POC Glucose 199 mg/dL (60-115) H 05/30/22 10:51 Random Glucose 105 mg/dL (60-115) 05/29/22 22:33 Calcium 9.2 mg/dL (8.4-10.2) 05/29/22 22:33 Total Bilirubin 1.2 mg/dL (0.0-1.0) H 05/29/22 17:26 AST 18 U/L (5-31) 05/29/22 17:26 ALT 18 U/L (0-31) 05/29/22 17:26 Alkaline Phosphatase 77 U/L (39-117) 05/29/22 17:26 Troponin I High Sens 3.8 ng/L (<3.5-17.0) 05/29/22 17:26 Total Protein 7.9 g/dL (6.5-8.0) 05/29/22 17:26 Albumin 4.0 g/dL (3.5-5.0) 05/29/22 17:26 Triglycerides 129 mg/dL 05/30/22 08:05 Cholesterol 80 mg/dL 05/30/22 08:05 LDL Cholesterol, Calc 30 mg/dl 05/30/22 08:05 HDL Cholesterol 25 mg/dL 05/30/22 08:05 COVID-19 (DEANA) Negative (Negative) 05/30/22 01:30 COVID-19 Clin Com See Note 05/30/22 01:[address] 05/29/22 17:15 IMPRESSION: No definite acute intracranial abnormality. Mild to moderate multifocal hypoattenuation throughout the supratentorial white matter is nonspecific and can be further assessed with a MRI of the brain as clinically indicated. Head/Neck CTA 05/29/22 21:49 IMPRESSION: 1. No arterial high-grade stenosis or large vessel occlusion is identified to explain patient's clinical symptomatology of left-sided facial droop. 2. There is multifocal intracranial atherosclerotic disease, most notably involving the left anterior circulation with moderate to high-grade stenosis of the paraclinoid and supraclinoid left ICA as well as the origins of the left A1 and M1 segments. 3. 1.5 cm hypodense nodule in the inferior left thyroid. Recommend further evaluation with outpatient thyroid ultrasound. Impression #1 and #[address] Babin on 05/29/2022 at 10:03 PM Discharge Plan Discharge Patient Disposition: Home, Self-Care Discharge Diagnosis: microvascular infarct Referrals: Chen Vang MD [Primary Care Provider] - 1 Week (CALL OFFICE TO SCHEDULE FOLLOW UP APPOINTMENT WITH PCP ) Discharge Medications: Continued trazodone 100 mg tablet 100 mg PO BEDTIME PRN (Reason: for insomnia) Qty: 30 0RF cholecalciferol (vitamin D3) 25 mcg (1,000 unit) capsule 25 mcg PO DAILY 30 Days Qty: 30 11RF (DME) FreeStyle Lite Strips Strip See Rx Instructions .ROUTE .MEDSUPPLY Qty: 100 11RF Rx Instructions: As directed three times a day ezetimibe 10 mg tablet 10 mg PO DAILY Qty: 90 2RF amlodipine 10 mg tablet 10 mg PO DAILY 90 Days Qty: 90 1RF sucralfate 1 gram tablet 3 g PO DAILY Qty: 90 3RF metformin 1,000 mg tablet 1,000 mg PO BID Qty: 90 1RF insulin lispro [Admelog SoloStar U-100 Insulin] 100 unit/mL insulin pen 4 - 6 unit subcut TID Qty: 15 1RF Versatile Cream 1 appl TOPICAL TID Rx Instructions: apply 1 to 3 grams to affected area (knees) 3 to 4 times a day naproxen 125 mg/5 mL Suspension 250 mg PO BID PRN (Reason: Pain (Scale Score 4-6)) ammonium lactate 12 % cream 1 appl topical BID Protocol: Apply to: Apply to: feet Trulicity 1.5 mg/0.5 mL pen injector 1.5 mg subcut WE fluoxetine 40 mg capsule 40 mg PO DAILY (DME) FreeStyle Arsalan 2 Sensor Kit See Rx Instructions .Route Qty: 2 11RF Rx Instructions: As directed (DME) FreeStyle [place] 2 [place] Misc See Rx Instructions .Route Qty: 1 0RF Rx Instructions: As directed nitroglycerin 0.4 mg tablet, sublingual 0.4 mg sublingual Q5M Qty: 25 0RF atorvastatin 80 mg tablet 80 mg PO BEDTIME 90 Days Qty: 90 1RF hydralazine 10 mg tablet 10 mg PO TID 30 Days Qty: 90 1RF Lantus Solostar U-100 Insulin 100 unit/mL (3 mL) insulin pen 32 unit subcut DAILY 90 Days Qty: 28.8 3RF Entresto 49-51 mg tablet 1 tab PO BID (DME) pen needle, diabetic [BD Ultra-Fine Rika Pen Needle] 32 gauge x 5/32 needle See Rx Instructions .ROUTE .MEDSUPPLY Qty: 125 11RF Rx Instructions: As directed four times a day (DME) blood-glucose meter [FreeStyle Lite Meter] Kit See Rx Instructions .ROUTE .MEDSUPPLY Qty: 1 0RF Rx Instructions: to test blood glucose 4x/day (DME) lancets [TRUEplus Lancets] [facility] See Rx Instructions .ROUTE .MEDSUPPLY Qty: 200 8RF Rx Instructions: As directed 4 x/day aspirin 81 mg tablet,delayed release (DR/EC) 81 mg PO DAILY metoclopramide HCl [Reglan] 5 mg tablet 5 mg PO QIDACHS Qty: 120 6RF Rx Instructions: Will monitor for any interaction with prozac Discharge Orders: Discharge Order (Routine); Ordered 05/30/22 Ordered By: Catalino Lee Diet: Advance to usual diet Activity on Discharge: As tolerated Stand Alone Forms: Patient Portal Discharge page Care Plan Goals: prevention of strokes Health Concerns: microvascular infarcts incidental thyroid nodule Plan of Treatment: continue aspirin and atorvastatin control of blood pressure and blood sugar [A1c was 11.5 on 05.16.22] Please follow up with your primary care doctor within 1 week. Return to the hospital if you experience recurrent or worsening symptoms. Ask your primary care doctor to order outpatient thyroid ultrasound for evaluation of incidental finding of nodule Assessment: See Discharge Summary.
[2022-05-30 15:56] LABS: Glucose, Whole Blood 136 mg/dL (60-115)
[2022-05-30 16:00] VITALS: BP 137/87; PULSE 88; RESP 19; TEMP 36.4; O2SAT 94
--- NOTE | 2022-05-30 16:42 | MHC.STROKE ---
I MET WITH THE PATIENT HER TWO DAUGHTERS AND THE SPECIALIST PHYSICIANS TO PROVIDE STROKE-TIA EDUCATION. SHE REFUSED THE MRI, WE REVIEWED HER CT AND CTA H/N TEST RESULTS AND I EXPLAINED MICROVASCULAR DISEASE, WE REVIEWED HER INDIVIDUAL RISK FACTORS, LABS, LIPID PANEL, GLUCOSE, MEDICATION COMPLIANCE, SYMPTOM MANAGEMENT, FOLLOWING UP WITH HER PCP, CALLING 911 IF SYMPTOMS RETURN AND PERSIST. SHE LIVES WITH ONE OF THE DAUGHTERS. THEY ALL HAD AN OPPORTUNITY TO ASK QUESTIONS, I USED HANDOUTS AND DIAGRAMS TO HELP EXPLAIN HER CONDITION. I REVIEWED HER PLAN OF CARE HERE AND AT HOME. THEY ALL EXPRESSED THAT THEY DID UNDERSTAND AND THEY ARE AWARE THAT SHE IS BEING DISCHARGED TODAY. I DID VERIFY THAT SHE PASSED THE INITIAL NURSING SWALLOW SCREEN 05/29/22 AT 2009 PRIOR TO ANY PO ASPIRIN.
== END 2022-05-30 17:32 | disposition home or self-care (01) ==
LOC: HO.ED 21:21 → HO.EDOVER 22:13 → HO.IMC 05-30 02:54
PROVIDERS: Physician Assistant; Admitting Provider Internal Medicine; Emergency Provider Emergency Medicine; PCP Internal Medicine; Visit Provider Family Medicine
DX: G45.9 Transient cerebral ischemic attack, unspecified (principal); I67.89 Other cerebrovascular disease; E66.01 Morbid (severe) obesity due to excess calories; Z68.41 Body mass index [BMI] 40.0-44.9, adult; I11.0 Hypertensive heart disease with heart failure; I50.22 Chronic systolic (congestive) heart failure; E11.21 Type 2 diabetes mellitus with diabetic nephropathy; E11.42 Type 2 diabetes mellitus with diabetic polyneuropathy; Z79.4 Long term (current) use of insulin; Z20.822 Contact with and (suspected) exposure to COVID-19
CPT/HCPCS: 36415; 70450; 70496; 70498; 80048; 80053; 80061; 82947; 84484; 85025; 85610; 85730; 87635; 96372; 97162; 97165; 99222; 99284; Q9967

== ENCOUNTER 2022-06-05 08:23 | Outpatient (REF) | payer OTHER, SELFPAY ==
[2022-06-05 09:55] LABS: Microalbum/Creatinine Ratio Ur 24.2 ug/mg cr
[2022-06-05 10:14] LABS: Alanine Aminotransferase 19 U/L (0-31); Alkaline Phosphatase 75 U/L (39-117); Anion Gap 11 (12-20); Aspartate Amino Transferase 16 U/L (5-31); Bilirubin Total 1.3 mg/dL (0.0-1.0); Blood Urea Nitrogen 13 mg/dL (9-16); Calcium 9.6 mg/dL (8.4-10.2); Carbon Dioxide 27 mmol/L (22-29); Chloride 105 mmol/L (96-108); Cholesterol 68 mg/dL; Estimated Glomerular Filt Rate > 60; Glucose Fasting 170 mg/dL (60-99); HDL Cholesterol 25 mg/dL; LDL Cholesterol Calculated 26 mg/dl; Potassium 4.4 mmol/L (3.3-5.1); Sodium 139 mmol/L (135-145); Total Protein 7.5 g/dL (6.5-8.0); Triglycerides 87 mg/dL
[2022-06-05 10:20] LABS: Vitamin D 25-OH Total 31.5 ng/mL (>30)
== END 2022-06-05 08:24 | disposition home or self-care (01) ==
LOC: HO.LAB 08:23
PROVIDERS: PCP Internal Medicine; Visit Provider Internal Medicine
DX: E11.42 Type 2 diabetes mellitus with diabetic polyneuropathy (principal); E04.1 Nontoxic single thyroid nodule; E78.5 Hyperlipidemia, unspecified; E55.9 Vitamin D deficiency, unspecified; Z79.4 Long term (current) use of insulin
CPT/HCPCS: 36415; 80053; 80061; 82043; 82306

== ENCOUNTER 2022-06-28 11:31 | Outpatient (REF) | payer OTHER, SELFPAY ==
--- NOTE | ~2022-06-28 | US_ITS ---
EXAMINATION: US THYROID CLINICAL INFORMATION: Nontoxic single thyroid nodule. COMPARISON: CT angiography head/neck stroke 05/29/2022. TECHNIQUE: Linear transducer grayscale and color Doppler examination with attention to the region of the thyroid. FINDINGS: SIZE: Measurements of the thyroid lobes and nodules are given in sagittal, anteroposterior and transverse dimensions respectively. Right Thyroid Lobe: 3.9 x 1.8 x 1.8 cm, volume 6.6 mL. Parenchyma: The gland echotexture is homogeneous. Thyroid vascularity is normal. Left Thyroid Lobe: 4.0 x 2.0 x 1.5 cm, volume 6.3 mL. Parenchyma: The gland echotexture is homogeneous. Thyroid vascularity is normal. Isthmus: 0.5 cm in maximum AP dimension. Estimated total number of nodules greater than or equal to 1 cm: 1. 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 Location: Left inferior. Size: 1.2 x 1.1 x 1.6 cm, volume 1.0 mL. Nodule characteristics: Composition: Mixed cystic and solid (1). Echogenicity: Hyperechoic (1). Shape: Not taller than wide (0). Margins: Smooth (0). Echogenic Foci: None (0). ACR TI-RADS total points: 2. ACR TI-RADS category: 2. There are multiple small simple colloid cysts measuring less than 1 cm. NODES: No lymphadenopathy is seen in the tissue surrounding the thyroid gland. US/US thyroid IMPRESSION: Solitary nodule with major cystic and small solid component with TI-RADS category of 2. Recommend follow-up ACR TI-RADS reference. ACR TI-RADS RECOMMENDATION REFERENCE: Ultrasound-guided fine-needle aspiration, followup ultrasound, no further followup. * TR1 (0 point) and TR2 (2 points): No FNA or followup. * TR3 (3 points): FNA if more than or equal to 2.5 cm in maximum dimension, followup ultrasound in 1, 3 and 5 years if 1.5 to 2.4 cm in maximum dimension. * TR4 (4-6 points): FNA if more than or equal to 1.5 cm in maximum dimension, followup ultrasound in 1, 2, 3 and 5 years if 1 to 1.4 cm in maximum dimension. * TR5 (more than or equal to 7 points): FNA if more than or equal to 1 cm in maximum dimension, followup ultrasound every year for 5 years if 0.5 to 0.9 cm in maximum dimension. * TR3, TR4 or TR5 nodules that are below the size threshold for followup receive no followup.
== END 2022-06-28 11:32 | disposition home or self-care (01) ==
LOC: HO.US 11:31
PROVIDERS: PCP Internal Medicine; Visit Provider Internal Medicine
DX: E04.1 Nontoxic single thyroid nodule (principal); M75.81 Other shoulder lesions, right shoulder
CPT/HCPCS: 20610; 76536; 99212; J1020

== ENCOUNTER 2022-06-28 14:17 | Outpatient (REF) | payer OTHER, SELFPAY ==
--- NOTE | ~2022-06-28 | XR_ITS ---
EXAMINATION: XR SHOULDER, RIGHT CLINICAL INFORMATION: Pain right shoulder COMPARISON: None TECHNIQUE: AP external rotation, Grashey, scapular Y, and axillary views of the right shoulder. FINDINGS: There is loss of AC joint space with periarticular spurring. The glenohumeral joint space is maintained normal. No visible acute fracture, dislocation or subluxation seen. The soft tissues are normal. XR/XR shoulder RT min 2V IMPRESSION: Degenerative arthritic changes right AC joint. No visible acute fracture or dislocation seen.
== END 2022-06-28 14:18 | disposition home or self-care (01) ==
LOC: HO.HOSX 14:17
PROVIDERS: Visit Provider Physician Assistant
DX: M25.511 Pain in right shoulder (principal)
CPT/HCPCS: 73030

== ENCOUNTER → 2022-09-07 09:15 | Outpatient (BNVA) | payer OTHER, SELFPAY | PROVIDERS: PCP Internal Medicine; Visit Provider Physician Assistant | DX: M75.81 Other shoulder lesions, right shoulder (principal) | CPT/HCPCS: 99212 ==

== ENCOUNTER 2022-10-04 07:28 | Outpatient (REF) | payer OTHER, SELFPAY | END 2022-10-04 07:29 | disposition home or self-care (01) | LOC: HO.HOSX 07:28 | PROVIDERS: Visit Provider Physician Assistant | DX: Z13.89 Encounter for screening for other disorder (principal) ==

== ENCOUNTER 2022-10-05 18:00 | Outpatient (REF) | payer OTHER, SELFPAY ==
--- NOTE | ~2022-10-05 | MR_ITS ---
EXAMINATION: MR SHOULDER WITHOUT CONTRAST, RIGHT CLINICAL INFORMATION: Pain, limited range of motion. COMPARISON: None available. TECHNIQUE: MRI of the shoulder without contrast was performed on a high-field scanner. FINDINGS: ROTATOR CUFF: Moderate supraspinatus tendinosis. There is bursal and articular aspect fraying/low-grade tear in the distal anterior fibers measuring 1 x 1.2 cm (AP x ML) Infraspinatus, teres minor is intact. Mild subscapularis tendinosis. Thinning/partial tearing of the distal subscapularis tendon measuring 1.2 cm ML. No muscle atrophy or fatty infiltration. BICEPS: The biceps tendon is partially medially subluxed in the superior bicipital groove, draped over the lesser tuberosity. Probable proximal intra-articular biceps tendon. CORACOACROMIAL ARCH: The undersurface of the acromion is curved with no subacromial spur. Mild-moderate acromioclavicular arthritis. LABRUM/CAPSULE: Superior labral degeneration, with fraying/tear, with ill-definition of the labrum. Small caliber posterior labrum. Anteroinferior labral degenerative fraying. Inferior labral degeneration. GLENOHUMERAL JOINT/MARROW: Mild glenohumeral joint arthritis. Small effusion. No acute fracture. MR/MR shoulder RT wo con IMPRESSION: 1. Moderate supraspinatus tendinosis. 1 x 1.2 cm fraying/low-grade tear anteriorly. 2. Mild subscapularis tendinosis. Thinning/partial tearing of the distal subscapularis tendon measuring 1.2 cm ML. 3. Partial medial subluxation of the biceps tendon in the superior bicipital groove, draped over the lesser tuberosity. Probable proximal intra-articular biceps tendon. 4. Superior labral degeneration with fraying/tear. Anteroinferior, inferior labral degenerative fraying. 5. Mild glenohumeral joint arthritis. Small effusion. 6. Mild-moderate acromioclavicular arthritis.
== END 2022-10-05 18:01 | disposition home or self-care (01) ==
LOC: HO.MRI 18:00
PROVIDERS: PCP Internal Medicine; Visit Provider Physician Assistant
DX: M75.81 Other shoulder lesions, right shoulder (principal)
CPT/HCPCS: 73221

== ENCOUNTER 2022-11-02 09:52 | Outpatient (AMB) | payer OTHER, SELFPAY ==
[2022-11-02 09:55] VITALS: BMI 38.5
--- NOTE | 2022-11-02 09:55 | A.OFFVIS_ITS ---
Intake Vital Signs 11/02/22 09:55 Height 5 ft Weight 197 lb BMI 38.5 Intake Visit Reasons: OV- RT Shoulder MRI Review Intake Note: Kori is a 57 year old female who presents today for a MRI review of right shoulder. Patient reports no change in symptoms. Allergies No Known Allergies [No Known Allergies*] Allergy (Verified 11/02/22 09:55) HPI OV- RT Shoulder MRI Review HPI Details 57-year-old female who returns to the office today for an MRI review of right shoulder. She continues to experience pain with overhead reaching and also experiences weakness with daily activities. 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 Surgical History History of coronary artery bypass surgery History of hernia repair (~09/11/18) History of open heart surgery (~01/2017) History of tubal ligation (~1989) Hx of colonoscopy Hx of shoulder surgery Family History Father History of diabetes mellitus History of hypertension Mother Alzheimers disease Family/Other FH: mental illness Social History Household Members: Family Household Members Other:: daughter Housing: House Alcohol intake: never Patient Tobacco Use Status: Former Tobacco user Tobacco use type: Cigarette e-Cigarette/Vaping Use: Never Used Second Hand Smoke Exposure: No service: No Current occupational status: unemployed Current occupation: rt handed Cognitive needs: No Hearing needs: No Vision needs: Yes Review of Systems Const All systems reviewed & are unremarkable except as noted in HPI and below Physical Exam Vital Signs: BMI result Body Mass Index 38.5 Extrem Other: Left shoulder normal to inspection. Tenderness over the bicipital groove and along the deltoid region of the shoulder. Positive [place]. Pain with empty can testing. NVI. Results Reviewed Results Reviewed: MR shoulder RT wo con IMPRESSION: 1.? Moderate supraspinatus tendinosis. 1 x 1.2 cm fraying/low-grade tear anteriorly. 2.? Mild subscapularis tendinosis. Thinning/partial tearing of the distal subscapularis tendon measuring 1.2 cm ML. 3.? Partial medial subluxation of the biceps tendon in the superior bicipital groove, draped over the lesser tuberosity. Probable proximal intra-articular biceps tendon. 4.? Superior labral degeneration with fraying/tear. Anteroinferior, inferior labral degenerative fraying. 5.? Mild glenohumeral joint arthritis. Small effusion. 6.? Mild-moderate acromioclavicular arthritis. ? Assessment & Plan Assessment & Plan (1) Tendinitis of right rotator cuff: Code(s): M75.81 - Other shoulder lesions, right shoulder Plan We reviewed her MRI findings and due to her ongoing discomfort and limitations with activities, I would like her to meet Dr. Garay to discuss whether or not she is a candidate for surgical intervention. She is content with this plan and will book accordingly. Patient Instructions: Scribed for Taz Stoner PA-C, by Amilcar Fofana medical service technician, on 11/02/2022 at 10:00 AM Taz IRVIN PA-C, have personally reviewed and agree with the information entered by the scribe. Coding Level of Care Code Est Pt Level 3 (39070) Diagnoses Tendinitis of right rotator cuff M75.81
== END 2022-11-02 12:25 | disposition home or self-care (01) ==
PROVIDERS: PCP Internal Medicine; Visit Provider Physician Assistant
DX: M75.81 Other shoulder lesions, right shoulder (principal); S43.431A Superior glenoid labrum lesion of right shoulder, initial encounter; M19.011 Primary osteoarthritis, right shoulder
CPT/HCPCS: 99213

== ENCOUNTER → 2022-11-02 09:52 | Outpatient (BNVA) | payer OTHER, SELFPAY | PROVIDERS: PCP Internal Medicine; Visit Provider Physician Assistant | DX: M75.81 Other shoulder lesions, right shoulder (principal) | CPT/HCPCS: 99212 ==

== ENCOUNTER 2023-01-30 09:17 | Outpatient (REF) | payer OTHER, SELFPAY ==
[2023-01-30 10:59] LABS: Alanine Aminotransferase 20 U/L (0-31); Albumin Level 4.3 g/dL (3.5-5.0); Alkaline Phosphatase 67 U/L (39-117); Anion Gap 14 (12-20); Aspartate Amino Transferase 19 U/L (5-31); Bilirubin Total 1.4 mg/dL (0.0-1.0); Blood Urea Nitrogen 15 mg/dL (9-16); Calcium 9.7 mg/dL (8.4-10.2); Carbon Dioxide 26 mmol/L (22-29); Chloride 106 mmol/L (96-108); Cholesterol 108 mg/dL (<200); Estimated Glomerular Filt Rate > 60; Glucose Fasting 82 mg/dL (60-99); HDL Cholesterol 30 mg/dL (>40); LDL Cholesterol Calculated 47 mg/dL (<100); Potassium 4.1 mmol/L (3.3-5.1); Sodium 142 mmol/L (135-145); Total Protein 7.8 g/dL (6.5-8.0); Triglycerides 155 mg/dL (<150)
[2023-01-30 11:17] LABS: Vitamin D 25-OH Total 45.7 ng/mL (>30)
== END 2023-01-30 09:18 | disposition home or self-care (01) ==
LOC: HO.LAB 09:17
PROVIDERS: PCP Internal Medicine; Visit Provider Internal Medicine
DX: E11.9 Type 2 diabetes mellitus without complications (principal); E55.9 Vitamin D deficiency, unspecified; E78.5 Hyperlipidemia, unspecified; E53.8 Deficiency of other specified B group vitamins
CPT/HCPCS: 36415; 80053; 80061; 82043; 82306; 82570; 82607; 82746

== ENCOUNTER 2023-02-01 16:21 | Outpatient (AMB) | payer OTHER, SELFPAY ==
[2023-02-01 16:30] VITALS: BP 140/90; PULSE 80; O2SAT 96; BMI 38.3
--- NOTE | 2023-02-01 16:30 | A.OFFPC_ITS ---
Vital Signs 02/01/23 16:30 Height 5 ft Weight 196 lb BMI 38.3 BP 140/90 H Blood Pressure Location Lt brachial Position Sitting Pulse 80 Pulse Source Pulse Oximeter Pulse Oximetry (%) 96 Oxygen Delivery Method Room Air Intake Visit Reasons: dm Intake Note: Patient here for a follow up DM Reinforced Concrete Inspector Required: No Accompanied by: Self / Same As Patient Allergies No Known Allergies [No Known Allergies*] Allergy (Verified 02/01/23 16:42) Medication List - Last Reconciled 02/01/23 by Chen Chase MD amlodipine 10 mg PO DAILY 90 days ammonium lactate 12% 1 appl See Protocol topical BID aspirin 81 mg PO DAILY atorvastatin 80 mg PO BEDTIME 90 days blood sugar diagnostic (FreeStyle Lite Strips) As directed three times a day blood-glucose meter (FreeStyle Lite Meter kit) to test blood glucose 4x/day cholecalciferol (vitamin D3) 25 mcg PO DAILY 30 days cream base no.193 (bulk) (Versatile topical cream) 1 appl topical TID dulaglutide (Trulicity) 1.5 mg (0.5 mL) subcut WE ezetimibe 10 mg PO DAILY flash glucose scanning reader (CartourStyle Arsalan 2 [place]) As directed flash glucose sensor (FreeStyle Arsalan 2 Sensor kit) As directed fluoxetine 40 mg PO DAILY hydralazine 10 mg PO TID 30 days insulin glargine (Lantus Solostar U-100 Insulin) 32 units (0.32 mL) subcut DAILY 90 days insulin lispro (Admelog SoloStar U-100 Insulin lispro) 4 - 6 units (0.04 - 0.06 mL) subcut TID lancets (TRUEplus Lancets) As directed 4 x/day metformin 1,000 mg PO BID metoclopramide HCl (Reglan) 5 mg PO QIDACHS nitroglycerin 0.4 mg sublingual Q5M pen needle, diabetic (BD Ultra-Fine Rika Pen Needle) As directed four times a day sacubitril-valsartan 49-51 mg (Entresto) 1 tab PO BID sucralfate 3 grams (3 x 1 gram) PO DAILY trazodone 100 mg PO BEDTIME PRN Tobacco use date assessed: 05/16/22 Dental Screening Dental Screen Date: 02/01/23 Did you have a dental visit in the last 12 months?: No Did you have a dental problem in the last 6 months where you did not have access to dental care?: No Was dental information given to patient?: Patient has dentist HPI HPI Comments History of Present Illness Details This is a 57-year-old female with diabetes mellitus type 2, mild recur rent major depression, hypertension and hyperlipidemia comes today for follow-up on her conditions. A1c within goal. Blood pressure borderline normal. LDL within goal. Depression well control with fluoxetine. No chest pain or shortness of breath. 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 Essential hypertension Dyslipidemia Diarrhea Right hand pain Lower back pain Gastroparesis Coronary artery disease Surgical History Hx of shoulder surgery Hx of colonoscopy History of hernia repair (~09/11/18) History of tubal ligation (~1989) History of open heart surgery (~01/2017) History of coronary artery bypass surgery Family History Father History of diabetes mellitus History of hypertension Mother Alzheimers disease Family/Other FH: mental illness Social History Household Members: Family Household Members Other:: daughter Housing: House Alcohol intake: never Patient Tobacco Use Status: Former Tobacco user Tobacco use type: Cigarette e-Cigarette/Vaping Use: Never Used Second Hand Smoke Exposure: No service: No Current occupational status: unemployed Current occupation: rt handed Cognitive needs: No Hearing needs: No Vision needs: Yes Questionnaire Thrive Questionnaire Date Thrive assessed: 06/06/22 MARLINE-7 AMB Questionnaire MARLINE-7 Date MARLINE - 7 assessed: 06/06/22 Source: Developed by Drs. Jerod Bang, Анна Jaocbson, Horacio Espinosa and colleagues, with an educational maria del carmen from [employer] Review of Systems Const All systems reviewed & are unremarkable except as noted in HPI and below Eyes Reports no additional complaints, Denies change in vision and Denies other visual disturbances Card Denies chest pain at rest, Denies chest pain with activity, Denies edema, Denies irregular heart rhythm, Denies claudication, Denies dyspnea, Denies dyspnea on exertion, Denies orthopnea, Denies paroxysmal nocturnal dyspnea and Denies slow heart rate Resp Denies cough, Denies dyspnea and Denies dyspnea on exertion GI Denies abdominal pain, Denies change in bowel habits, Denies excessive flatus, Denies nausea and Denies vomiting Denies urinary incontinence, Denies urinary hesitancy and Denies urinary urgency Musc Denies abnormal gait, Denies atrophy, Denies deformity and Denies limited range of motion Skin/Breast Denies bleeding lesions, Denies changing lesions and Denies rash Neuro Denies abnormal gait and Denies lack of coordination Physical exam (Primary Care) Vital Signs: Last Vital Signs Pulse 80 02/01/23 16:30 BP 140/90 H 02/01/23 16:30 Pulse Ox 96 02/01/23 16:30 Oxygen Delivery Method Room Air 02/01/23 16:30 BMI result Body Mass Index 38.3 Tobacco/Smoking Status: Tobacco use Status Tobacco use date assessed 05/16/22 02/01/23 16:30 Patient Tobacco Use Status Former Tobacco user 02/01/23 16:30 Tobacco use type Cigarette 02/01/23 16:30 e-Cigarette/Vaping Use Never Used 02/01/23 16:30 Thrive Assessment: Date of Thrive Assessment Date Thrive assessed 06/06/22 02/01/23 16:30 Eyes General: appearance normal, both eyes and all related structures Eyelids: Yes eyelids normal Conjunctivae: conjunctivae normal Neck Neck: Yes normal visual inspection and Yes supple Resp Effort & Inspection: normal respiratory effort Auscultation: clear to auscultation bilaterally Cardio Jugular venous distension: no JVD Rate: regular rate Rhythm: regular rhythm Heart sounds: S1 normal heart sound present and S2 normal heart sound present Extrem General: Yes full ROM Office Procedures Flu Questionnaire Does the patient have a severe egg allergy?: No Results AMB Hemoglobin A1c AMB Hemoglobin A1c 6.6 % Last Edit by MICHAEL Almonte on 02/01/23 16:3 7 Immunizations flu vacc [id number] 6mos up(PF) 60 mcg(15 mcgx4)/0.5 mL IM syringe Performing Provider: Chen Chase MD Per[facility] [place] [facility] Documented (not given) by: MICHAEL Almonte on 02/01/23 16:36 Reason Not Given: Patient Refused Results Reviewed Results Reviewed: Laboratory Last Values Hgb A1c (Clinic) 6.6 % (4.0-6.0) H 02/01/23 16:35 Assessment and Plan Assessment & Plan (1) Diabetes mellitus: Code(s): E11.9 - Type 2 diabetes mellitus without complications Plan: Continue insulin and Trulicity. A1c goal is equal or less than 7%. (2) Mild recurrent major depression: Code(s): F33.0 - Major depressive disorder, recurrent, mild Plan: Continue fluoxetine. (3) Dyslipidemia: Code(s): E78.5 - Hyperlipidemia, unspecified Plan: Continue statins and Zetia. LDL goal is less than 70. (4) Essential hypertension: Code(s): I10 - Essential (primary) hypertension Plan: Continue Entresto, amlodipine and hydralazine. Blood pressure goal is equal or less than 130/80. Orders: Orders Influenza [id number] Immunization Today Z23 - Encounter for immunization Vitamin D 25-OH Total 4 Months E55.9 - Vitamin D deficiency, unspecified AMB Hemoglobin A1c Today E11.9 - Type 2 diabetes mellitus without complications Lipid Panel 4 Months E78.5 - Hyperlipidemia, unspecified Microalbumin, Random (w Creat) 4 Months E11.9 - Type 2 diabetes mellitus without complications Comprehensive [place]. Panel Fast 4 Months E11.9 - Type 2 diabetes mellitus without complications Medications: Refilled hydralazine 10 mg PO TID 30 days 90 tabs 1RF I10 - Essential (primary) hypertension Coding Level of Care Code Est Pt Level 4 (75387) Diagnoses Diabetes mellitus E11.9 Mild recurrent major depression F33.0 Dyslipidemia E78.5 Essential hypertension I10 Time Spent (min) 25
== END 2023-02-01 16:51 | disposition home or self-care (01) ==
PROVIDERS: PCP Internal Medicine; Visit Provider Internal Medicine
DX: E11.42 Type 2 diabetes mellitus with diabetic polyneuropathy (principal); F33.0 Major depressive disorder, recurrent, mild; Z79.4 Long term (current) use of insulin; E78.5 Hyperlipidemia, unspecified; I10 Essential (primary) hypertension
CPT/HCPCS: 83036; 99214

== ENCOUNTER 2023-02-23 10:17 | Outpatient (REF) | payer OTHER, SELFPAY | END 2023-02-23 10:18 | disposition home or self-care (01) | LOC: HO.MAMMO 10:17 | PROVIDERS: PCP Internal Medicine; Visit Provider Internal Medicine | DX: Z12.31 Encounter for screening mammogram for malignant neoplasm of breast (principal) | CPT/HCPCS: 77063; 77067 ==

== ENCOUNTER → 2023-02-23 10:45 | Outpatient (BNV) | payer OTHER, SELFPAY | PROVIDERS: PCP Internal Medicine; Visit Provider Radiology Diagnostic Radiology | DX: Z12.31 Encounter for screening mammogram for malignant neoplasm of breast (principal) | CPT/HCPCS: 77063; 77067 ==

== ENCOUNTER 2023-05-24 09:26 | Outpatient (AMB) | payer OTHER, SELFPAY ==
--- NOTE | 2023-05-24 09:32 | A.OFFVIS_ITS ---
Intake Intake Visit Reasons: OV- RT shoulder pain Intake Note: Kori is a 57 year old female who presents today for a follow up of her right shoulder tendonitis. Patient reports that she doesn't want to move forward with surgery due to her having a couple concerns on how long the recovery was for her last surgery in her right shoulder and also being diabetic. Patient would like to know if she can get an injection to see if it will give her some relief. Allergies No Known Allergies [No Known Allergies*] Allergy (Verified 05/24/23 09:40) HPI OV- RT shoulder pain HPI Details 57-year-old Austrian speaking female who returns to the office today for a follow-up of right shoulder pain. She is not interested in moving forward with surgery due to her recovery time she took for her previous surgery. She would like to have a cortisone injection. She has a history of diabetes. 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 Essential hypertension Dyslipidemia Diarrhea Right hand pain Lower back pain Gastroparesis Coronary artery disease Surgical History Hx of shoulder surgery Hx of colonoscopy History of hernia repair (~09/11/18) History of tubal ligation (~1989) History of open heart surgery (~01/2017) History of coronary artery bypass surgery Family History Father History of diabetes mellitus History of hypertension Mother Alzheimers disease Family/Other FH: mental illness Social History Household Members: Family Household Members Other:: daughter Housing: House Alcohol intake: never Patient Tobacco Use Status: Former Tobacco user Tobacco use type: Cigarette e-Cigarette/Vaping Use: Never Used Second Hand Smoke Exposure: No service: No Current occupational status: unemployed Current occupation: rt handed Cognitive needs: No Hearing needs: No Vision needs: Yes Review of Systems Const All systems reviewed & are unremarkable except as noted in HPI and below Physical Exam Extrem Other: Right shoulder normal to inspection. Tenderness over the bicipital groove and along the deltoid region of the shoulder. Forward flexion to 175, external rotation to 90, internal rotation to S1. 5/5 RTC strength. Negative [place] and cross body abduction. NVI. Office Procedures Joint Injection/Drain Joint Injection/Drain Primary Site: right shoulder Prep: site was prepped using aseptic technique, ethochloride spray was applied and injection warnings given Injected: 40 mg of, DepoMedrol, with 8 mL of, 1% plain lidocaine and in the subcromial space Approach Used: posterolateral Procedure: The patient tolerated the procedure well and there was some relief with the local anesthesia Coding 49869 - Glenohumeral/Tronchanteric Bursa/Intraarticular Procedure code (CPT) selection complete Assessment & Plan Assessment & Plan (1) Tendinitis of right rotator cuff: Code(s): M75.81 - Other shoulder lesions, right shoulder Plan We discussed options today which include steroid injection. They did consent to move forward with the right shoulder injection, which was tolerated well. I recommended rest, ice and elevation and OTC anti-inflammatories PRN for discomfort. We also discussed their diabetes and the effect the steroid can have on their blood glucose levels; therefore, they will continue to monitor these very closely over the next 72 hours. If there are any concerns, they should report to the ED immediately. Patient Instructions: Scribed for Taz Stoner PA-C, by Amilcar Fofana medical service technician, on 05/24/2023 at 9:45 AM LUIZ. Taz Farrell PA-C, have personally reviewed and agree with the information entered by the scribe. Coding Level of Care Code Est Pt Level 3 (33222) Diagnoses Tendinitis of right rotator cuff M75.81 CPT Codes Coding - Joint 7: 95760 - Glenohumeral/Tronchanteric Bursa/Intraarticular ([id number])
== END 2023-05-24 09:54 | disposition home or self-care (01) ==
PROVIDERS: PCP Internal Medicine; Visit Provider Physician Assistant
DX: M75.81 Other shoulder lesions, right shoulder (principal)
CPT/HCPCS: 20610; 99213

== ENCOUNTER 2023-05-24 09:26 | Outpatient (REF) | payer OTHER, SELFPAY ==
[2023-05-24 11:20] LABS: Alanine Aminotransferase 27 U/L (0-31); Albumin Level 4.3 g/dL (3.5-5.0); Alkaline Phosphatase 65 U/L (39-117); Anion Gap 11 (12-20); Aspartate Amino Transferase 19 U/L (5-31); Bilirubin Total 0.9 mg/dL (0.0-1.0); Blood Urea Nitrogen 16 mg/dL (9-16); Calcium 9.3 mg/dL (8.4-10.2); Carbon Dioxide 27 mmol/L (22-29); Chloride 107 mmol/L (96-108); Cholesterol 115 mg/dL (<200); Estimated Glomerular Filt Rate > 60; Glucose Fasting 107 mg/dL (60-99); HDL Cholesterol 29 mg/dL (>40); LDL Cholesterol Calculated 62 mg/dL (<100); Potassium 4.2 mmol/L (3.3-5.1); Sodium 141 mmol/L (135-145); Total Protein 7.9 g/dL (6.5-8.0); Triglycerides 121 mg/dL (<150)
[2023-05-24 11:36] LABS: Vitamin D 25-OH Total 43.6 ng/mL (>30)
[2023-05-24 12:41] LABS: Creatinine Urine 188.01 mg/dL; Microalbum/Creatinine Ratio Ur 19.1 ug/mg cr (<30)
== END 2023-05-24 09:27 | disposition home or self-care (01) ==
LOC: HO.LAB 09:26
PROVIDERS: Absent Provider Internal Medicine; PCP Internal Medicine; Visit Provider Physician Assistant
DX: E11.9 Type 2 diabetes mellitus without complications (principal); E78.5 Hyperlipidemia, unspecified; E55.9 Vitamin D deficiency, unspecified; M75.81 Other shoulder lesions, right shoulder
CPT/HCPCS: 20610; 36415; 80053; 80061; 82043; 82306; 82570; 99212; J1020

== ENCOUNTER 2023-05-31 11:29 | Outpatient (AMB) | payer OTHER, SELFPAY ==
--- NOTE | 2023-05-31 11:30 | A.OFFPC_ITS ---
Vital Signs 05/31/23 11:31 Height 5 ft Weight 193 lb BMI 37.7 BP 120/80 Blood Pressure Location Lt brachial Position Sitting Intake Visit Reasons: dm Intake Note: Patient here for a follow up DM Body Technician Required: No Accompanied by: Self / Same As Patient Allergies No Known Allergies [No Known Allergies*] Allergy (Verified 05/31/23 11:42) Medication List - Last Reconciled 05/31/23 by Chen Chase MD amlodipine 10 mg PO DAILY 90 days ammonium lactate 12% 1 appl See Protocol topical BID aspirin 81 mg PO DAILY atorvastatin 80 mg PO BEDTIME 90 days blood sugar diagnostic (FreeStyle Lite Strips) As directed three times a day blood-glucose meter (FreeStyle Lite Meter kit) to test blood glucose 4x/day cholecalciferol (vitamin D3) 25 mcg PO DAILY 30 days cream base no.193 (bulk) (Versatile topical cream) 1 appl topical TID dulaglutide (Trulicity) 1.5 mg (0.5 mL) subcut WE ezetimibe 10 mg PO DAILY flash glucose scanning reader (Anna LozabaiStyle Arsalan 2 [place]) As directed flash glucose sensor (FreeStyle Arsalan 2 Sensor kit) As directed fluoxetine 40 mg PO DAILY hydralazine 10 mg PO TID 30 days insulin glargine (Lantus Solostar U-100 Insulin) 32 units (0.32 mL) subcut DAILY 90 days insulin lispro (Admelog SoloStar U-100 Insulin lispro) 4 - 6 units (0.04 - 0.06 mL) subcut TID lancets (TRUEplus Lancets) As directed 4 x/day metformin 1,000 mg PO BID metoclopramide HCl (Reglan) 5 mg PO QIDACHS naproxen 500 mg PO BID PRN 7 days nitroglycerin 0.4 mg sublingual Q5M pen needle, diabetic (BD Ultra-Fine Rika Pen Needle) As directed four times a day sacubitril-valsartan 49-51 mg (Entresto) 1 tab PO BID sucralfate 3 grams (3 x 1 gram) PO DAILY trazodone 100 mg PO BEDTIME PRN Tobacco use date assessed: 05/31/23 Dental Screening Dental Screen Date: 05/31/23 Did you have a dental visit in the last 12 months?: No Did you have a dental problem in the last 6 months where you did not have access to dental care?: No Was dental information given to patient?: Patient declined HPI HPI Comments History of Present Illness Details This is a 57-year-old female with hypertension, hyperlipidemia, diabetes mellitus type 2 on long-term current use of insulin, mild major depression and systolic congestive heart failure that comes today for follow-up on her conditions. Blood pressure stable. A1c within goal. LDL within goal. Depression stable with SSRIs. Congestive heart failure has been stable and this is follow by cardiology. Has not gain 5 lb in a week. 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 Essential hypertension Dyslipidemia Diarrhea Right hand pain Lower back pain Gastroparesis Coronary artery disease Surgical History Hx of shoulder surgery Hx of colonoscopy History of hernia repair (~09/11/18) History of tubal ligation (~1989) History of open heart surgery (~01/2017) History of coronary artery bypass surgery Family History Father History of diabetes mellitus History of hypertension Mother Alzheimers disease Family/Other FH: mental illness Social History Household Members: Family Household Members Other:: daughter Housing: House Alcohol intake: never Patient Tobacco Use Status: Former Tobacco user Tobacco use type: Cigarette e-Cigarette/Vaping Use: Never Used Second Hand Smoke Exposure: No service: No Current occupational status: unemployed Current occupation: rt handed Cognitive needs: No Hearing needs: No Vision needs: Yes Questionnaire PHQ-9 Over the last 2 weeks, how often have you been bothered by any of the following problems? 1. Little interest or pleasure in doing things: not at all 2. Feeling down, depressed, or hopeless: not at all 3. Trouble falling or staying asleep, or sleeping too much: not at all 4. Feeling tired or having little energy: not at all 5. Poor appetite or overeating: not at all 6. Feeling bad about yourself - or that you are a failure or have let yourself or your family down: not at all 7. Trouble concentrating on things, such as reading the newspaper or watching television: not at all 8. Moving or speaking so slowly that other people could have noticed. Or the opposite - being so fidgety or restless that you have been moving around a lot more than usual: not at all 9. Thoughts that you would be better off or of hurting yourself in some way: not at all Total score: 0 Depression Screening Interpretation: Negative Depression Screening Done: Yes 83439 - PHQ-9 Billing: Yes Source: Developed by Drs. Jerod Bang, Анна Jacobson, Horacio Espinosa and colleagues, with an educational maria del carmen from [employer]. Thrive Questionnaire Date Thrive assessed: 05/31/23 I am a: Patient What is your living situation today?: I have a steady place to live Within the past 12 months, did the food you bought not last and you didn't have the money to get more?: Never true Within the past 12 months, did you worry whether your food would run out before you got money to buy more?: Never true Do you have trouble paying for medicines?: No Do you have trouble getting transportation to medical appointments?: No Do you have trouble paying your heating and electricity bill?: No Do you have trouble taking care of your child, family member or friend?: No Do you have trouble with day-to-day activities such as bathing, preparing meals, shopping, managing finances, etc.?: No Are you currently unemployed and looking for a job?: No Are you interested in more education?: No Please select the resources that you would like help with: None Currently or been in a relationship where the following occur: no concerns reported THRIVE Score: 0 AUDIT C Alcohol Use Questionnaire (AUDIT-C) 1. How often do you have a drink containing alcohol?: Never Total Score: 0 MARLINE-7 AMB Questionnaire MARLINE-7 Date MARLINE - 7 assessed: 05/31/23 Feeling nervous, anxious, or on edge: 0 = Not at all Not being able to stop or control worryin = Not at all Worrying too much about different things: 0 = Not at all Trouble relaxin = Not at all Being so restless that it is hard to sit still: 0 = Not at all Becoming easily annoyed or irritable: 0 = Not at all Feeling afraid as if something awful might happen: 0 = Not at all Total MARLINE-7 score (0-4 normal; 5-9 mild; 10-14 moderate; 15-21 severe): 0 Source: Developed by Drs. Jerod Bang, Анна Jacobson, Horacio Espinosa and colleagues, with an educational maria del carmen from [employer]. MARLINE-7 Assessment Billing MARLINE-7 Assessment Tool: MARLINE-7 Assessment 35999 Review of Systems Const All systems reviewed & are unremarkable except as noted in HPI and below Eyes Reports no additional complaints, Denies change in vision and Denies other visual disturbances Card Denies chest pain at rest, Denies chest pain with activity, Denies edema, Denies irregular heart rhythm, Denies claudication, Denies dyspnea, Denies dyspnea on exertion, Denies orthopnea, Denies paroxysmal nocturnal dyspnea and Denies slow heart rate Resp Denies cough, Denies dyspnea and Denies dyspnea on exertion GI Denies abdominal pain, Denies change in bowel habits, Denies excessive flatus, Denies nausea and Denies vomiting Denies urinary incontinence, Denies urinary hesitancy and Denies urinary urgency Musc Denies abnormal gait, Denies atrophy, Denies deformity and Denies limited range of motion Skin/Breast Denies bleeding lesions, Denies changing lesions and Denies rash Neuro Denies abnormal gait, Denies behavioral changes and Denies lack of coordination Psych Denies behavioral changes Physical exam (Primary Care) Vital Signs: Last Vital Signs BP 120/80 05/31/23 11:31 BMI result Body Mass Index 37.7 Tobacco/Smoking Status: Tobacco use Status Tobacco use date assessed 05/31/23 05/31/23 11:38 Patient Tobacco Use Status Former Tobacco user 05/31/23 11:38 Tobacco use type Cigarette 05/31/23 11:38 e-Cigarette/Vaping Use Never Used 05/31/23 11:38 PHQ-9: PHQ-9 Score PHQ-9: Total score 0 05/31/23 11:38 Depression Screening Interpretation: Negative Thrive Assessment: Date of Thrive Assessment Date Thrive assessed 05/31/23 05/31/23 11:38 Currently or been in a relationship where the following occur: no concerns reported Eyes General: appearance normal, both eyes and all related structures Eyelids: Yes eyelids normal Conjunctivae: conjunctivae normal Neck Neck: Yes normal visual inspection and Yes supple Resp Effort & Inspection: normal respiratory effort Auscultation: clear to auscultation bilaterally Cardio Jugular venous distension: no JVD Rate: regular rate Rhythm: regular rhythm Heart sounds: S1 normal heart sound present and S2 normal heart sound present Extrem General: Yes full ROM Results AMB Hemoglobin A1c AMB Hemoglobin A1c 5.5 % Last Edit by MICHAEL Almonte on 05/31/23 11:4 0 Results Reviewed Results Reviewed: Laboratory Last Values Hgb A1c (Clinic) 5.5 % (4.0-6.0) 05/31/23 11:39 Assessment and Plan Assessment & Plan (1) Mild recurrent major depression: Code(s): F33.0 - Major depressive disorder, recurrent, mild Plan: Continue fluoxetine. (2) Systolic CHF with reduced left ventricular function, NYHA class 2: Code(s): I50.20 - Unspecified systolic (congestive) heart failure Plan: Continue Entresto. Follow-up with Cardiology. The goal is to not gain 5 lb in a week. (3) Diabetes mellitus: Code(s): E11.9 - Type 2 diabetes mellitus without complications Plan: Continue insulin. Continue metformin. Discontinue Trulicity. Start Ozempic. A1c goal is equal or less than 7%. (4) Hyperlipidemia LDL goal <70: Code(s): E78.5 - Hyperlipidemia, unspecified Plan: Continue statins. LDL goal is less than 70. (5) Hypertension: Code(s): I10 - Essential (primary) hypertension Plan: Continue hydralazine and Entresto. Blood pressure goal is equal or less than 130/80. Orders: Orders AMB Hemoglobin A1c Today E11.9 - Type 2 diabetes mellitus without complications Medications: New semaglutide (Ozempic) for 4 weeks 0.25 mg (0.368 mL) subcut QWEEK 28 days 1.472 mL 0RF E11.9 - Type 2 diabetes mellitus without complications Changed From hydralazine 10 mg PO TID 30 days 90 tabs 1RF I10 - Essential (primary) hypertension To hydralazine 10 mg PO TID 90 days 270 tabs 1RF I10 - Essential (primary) hypertension From metformin 1,000 mg PO BID 90 tabs 1RF E11.21 - Type 2 diabetes mellitus with diabetic nephropathy To metformin 1,000 mg PO BID 90 days 180 tabs 1RF E11.21 - Type 2 diabetes mellitus with diabetic nephropathy Coding Level of Care Code Est Pt Level 4 (70541) Diagnoses Mild recurrent major depression F33.0 Systolic CHF with reduced left ventricular function, NYHA class 2 I50.20 Diabetes mellitus E11.9 Hyperlipidemia LDL goal <70 E78.5 Hypertension I10 Additional Codes MARLINE-7 Assessment Billing - MARLINE-7 Assessment Tool: MARLINE-7 Assessment 61754 ([id number]) Time Spent (min) 24
[2023-05-31 11:31] VITALS: BP 120/80; BMI 37.7
== END 2023-05-31 11:50 | disposition home or self-care (01) ==
PROVIDERS: PCP Internal Medicine; Visit Provider Internal Medicine
DX: E11.69 Type 2 diabetes mellitus with other specified complication (principal); F33.0 Major depressive disorder, recurrent, mild; I50.20 Unspecified systolic (congestive) heart failure; Z79.4 Long term (current) use of insulin; E78.5 Hyperlipidemia, unspecified; I10 Essential (primary) hypertension
CPT/HCPCS: 83036; 99214

== ENCOUNTER 2023-06-07 11:32 | Outpatient (AMB) | payer OTHER, SELFPAY ==
--- NOTE | 2023-06-07 11:41 | MHC.OFFWIV ---
Intake Vital Signs 06/07/23 11:42 Height 5 ft Weight 190 lb BMI 37.1 BP 142/80 H Blood Pressure Location Rt brachial Position Sitting Pulse 96 Pulse Source Pulse Oximeter Temp 97.8 F Temp Source Oral Pulse Oximetry (%) 98 Oxygen Delivery Method Room Air Intake Visit Reasons: EP Swelling Upper Chest/Neck Intake Note: Pt is here c/o swollen upper chest and neck since sunday. Pt states she did get an injection in her right shoulder three weeks ago and she was fine until Sunday. Patient Tobacco Use Status: Former Tobacco user Allergies No Known Allergies [No Known Allergies*] Allergy (Verified 06/07/23 11:43) Do you need a note to return to daycare/school/sports/work: No HPI HPI Comments History of Present Illness Details This is a 57-year-old female with a past medical history of insulin-dependent diabetes, hypertension, hyperlipidemia and CHF presenting for evaluation of an aching and sharp pain in her right anterior chest wall that has been present since Sunday. Patient denies any injury or trauma preceding the onset of her symptoms however states that she did receive a cortisone injection in her right shoulder on May for for is having any chest pain, shortness for breath, coughing, wheezing or neck pain. Patient does report hyperglycemia to 400mg/dL but reports her sugar this morning was in the 200's . Patient has not taken any medication for treatment of her discomfort. Of note, patient is seen utilizing an audio publishing editor, Cristina #[id number]. [facility] Medical History CVA (cerebral vascular accident) Brain TIA Osteoarthritis of left shoulder Skin lesion Diarrhea Morbid obesity Diabetes mellitus Alopecia Mild recurrent major depression Systolic CHF with reduced left ventricular function, NYHA class 2 Dizziness Polyarthralgia Left knee pain Anxiety Pulmonary nodule Degenerative joint disease Depression 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 Essential hypertension Dyslipidemia Diarrhea Right hand pain Lower back pain Gastroparesis Coronary artery disease Surgical History Hx of shoulder surgery Hx of colonoscopy History of hernia repair (~09/11/18) History of tubal ligation (~1989) History of open heart surgery (~01/2017) History of coronary artery bypass surgery Family History Father History of diabetes mellitus History of hypertension Mother Alzheimers disease Family/Other FH: mental illness Social History Household Members: Family Household Members Other:: daughter Housing: House Alcohol intake: never Patient Tobacco Use Status: Former Tobacco user Tobacco use type: Cigarette e-Cigarette/Vaping Use: Never Used Second Hand Smoke Exposure: No service: No Current occupational status: unemployed Current occupation: rt handed Cognitive needs: No Hearing needs: No Vision needs: Yes Review of Systems Const All systems reviewed & are unremarkable except as noted in HPI and below Card Reports no additional complaints and Denies dyspnea Resp Reports no additional complaints, Denies chest congestion, Denies cough, Denies hemoptysis, Denies dyspnea and Denies wheezing Musc Reports no additional complaints Skin/Breast Reports system reviewed and no additional complaints, except as documented Psych Reports no additional complaints Aller/Immun Denies wheezing Physical Exam Vital Signs: Last Vital Signs Temp 97.8 F 06/07/23 11:42 Pulse 96 06/07/23 11:42 BP 142/80 H 06/07/23 11:42 Pulse Ox 98 06/07/23 11:42 Oxygen Delivery Method Room Air 06/07/23 11:42 BMI result Body Mass Index 37.1 Const General: cooperative, comfortable, no acute distress, alert and awake Nutritional Appearance: overweight Orientation/consciousness: patient oriented x3 Limitations: no limitations Neck Neck: Yes normal visual inspection, Yes full ROM, Yes no lymphadenopathy, Yes no meningeal signs and No anterior neck swelling Chest Chest palpation & inspection: abnormal palpation of chest wall and tenderness (right anterior chest wall superior of the breast; no left chest wall pain) Breast/axilla inspection: normal inspection of the breasts Breast/axilla palpation: normal palpation of the breasts and normal palpation of the axillae Resp Effort & Inspection: normal respiratory effort, no audible wheezes, no cough and no respiratory distress Auscultation: clear to auscultation bilaterally Percussion: other (no crepitus upon examination of the anterior chest wall) Cardio Rate: regular rate Rhythm: regular rhythm Skin General skin exam: no rashes or lesions noted Neuro General: patient oriented x3 and no meningeal signs Extrem Other: passive ROM shoulders intact bilaterally, no pain to palpation of the clavicles, no subcutaneous emphysema or edema noted upon examination of the anterior chest wall Psych Appearance: grossly normal Mental Status: mental status grossly normal Insight: Good insight present (Psych) Judgement: Good judgement present (Psych) Assessment & Plan Assessment & Plan (1) Costochondritis, acute: Comment: Lungs are clear to auscultation bilaterally, vital signs are reviewed, no concern for acute cardiac syndrome. Code(s): M94.0 - Chondrocostal junction syndrome [Tietze] Plan: Naprosyn b.i.d. times 10 days; patient has taken this medication previously for her right shoulder pain. Patient to follow-up with PCP within 2 weeks for a review of her symptoms. Medications: New naproxen (Naprosyn) 500 mg PO BID 20 tabs 0RF Coding Level of Care Code Est Pt Level 3 (28702) Diagnoses Costochondritis, acute M94.0 Time Spent (min) 25
[2023-06-07 11:42] VITALS: BP 142/80; PULSE 96; TEMP 36.6; O2SAT 98; BMI 37.1
== END 2023-06-07 12:26 | disposition home or self-care (01) ==
PROVIDERS: PCP Internal Medicine; Visit Provider Physician Assistant
DX: M94.0 Chondrocostal junction syndrome [Tietze] (principal)
CPT/HCPCS: 99213

== ENCOUNTER 2023-07-12 15:33 | Outpatient (AMB) | payer OTHER, SELFPAY ==
[2023-07-12 15:39] VITALS: BP 144/84; PULSE 67; O2SAT 98; BMI 38.1
--- NOTE | 2023-07-12 15:39 | A.OFFPC_ITS ---
Vital Signs 07/12/23 15:39 07/13/23 13:28 Height 5 ft Weight 195 lb BMI 38.1 BP 144/84 H 140/90 H Blood Pressure Location Lt brachial Lt brachial Position Sitting Sitting Pulse 67 Pulse Source Pulse Oximeter Pulse Oximetry (%) 98 Oxygen Delivery Method Room Air Intake Visit Reasons: Walk-in follow up Temple Meat Cutter Required: Yes Diesel Bus Mechanic: Not Required per policy Accompanied by: Self / Same As Patient Allergies No Known Allergies [No Known Allergies*] Allergy (Verified 07/12/23 15:52) Medication List - Last Reconciled 07/12/23 by Chen Chase MD amlodipine 10 mg PO DAILY 90 days ammonium lactate 12% 1 appl See Protocol topical BID aspirin 81 mg PO DAILY atorvastatin 80 mg PO BEDTIME 90 days blood sugar diagnostic (FreeStyle Lite Strips) As directed three times a day blood-glucose meter (FreeStyle Lite Meter kit) to test blood glucose 4x/day cholecalciferol (vitamin D3) 25 mcg PO DAILY 30 days cream base no.193 (bulk) (Versatile topical cream) 1 appl topical TID ezetimibe 10 mg PO DAILY flash glucose scanning reader (NovalysStyle Arsalan 2 Sandy) As directed flash glucose sensor (FreeStyle Arsalan 2 Sensor kit) As directed fluoxetine 40 mg PO DAILY hydralazine 10 mg PO TID 90 days insulin glargine (Lantus Solostar U-100 Insulin) 32 units (0.32 mL) subcut DAILY 90 days insulin lispro (Admelog SoloStar U-100 Insulin lispro) 4 - 6 units (0.04 - 0.06 mL) subcut TID lancets (TRUEplus Lancets) As directed 4 x/day metformin 1,000 mg PO BID 90 days metoclopramide HCl (Reglan) 5 mg PO QIDACHS naproxen 500 mg PO BID PRN 7 days naproxen (Naprosyn) 500 mg PO BID nitroglycerin 0.4 mg sublingual Q5M pen needle, diabetic (BD Ultra-Fine Rika Pen Needle) As directed four times a day sacubitril-valsartan 49-51 mg (Entresto) 1 tab PO BID semaglutide (Ozempic) 0.25 mg (0.368 mL) subcut QWEEK 28 days sucralfate 3 grams (3 x 1 gram) PO DAILY trazodone 100 mg PO BEDTIME PRN Tobacco use date assessed: 05/31/23 HPI HPI Comments History of Present Illness Details This is a 57-year-old female with diabetes mellitus type 2 on long-term current use of insulin, hypertension, hyperlipidemia, systolic congestive heart failure and mild major depression comes today for follow-up on her conditions. A1c within goal. Blood pressure elevated and will be recheck in 3 weeks by nurse navigator. Last LDL was within goal. Depression stable with medications. Has not gain 5 lbs in a week. Went to urgent care recently due to redness ar ound the lower neck after having a local shoulder injection which improved the pain. Redness resolved. 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 Essential hypertension Dyslipidemia Diarrhea Right hand pain Lower back pain Gastroparesis Coronary artery disease Surgical History Hx of shoulder surgery Hx of colonoscopy History of hernia repair (~09/11/18) History of tubal ligation (~1989) History of open heart surgery (~01/2017) History of coronary artery bypass surgery Family History Father History of diabetes mellitus History of hypertension Mother Alzheimers disease Family/Other FH: mental illness Social History Household Members: Family Household Members Other:: daughter Housing: House Alcohol intake: never Patient Tobacco Use Status: Former Tobacco user Tobacco use type: Cigarette e-Cigarette/Vaping Use: Never Used Second Hand Smoke Exposure: No service: No Current occupational status: unemployed Current occupation: rt handed Cognitive needs: No Hearing needs: No Vision needs: Yes Questionnaire Thrive Questionnaire Date Thrive assessed: 05/31/23 MARLINE-7 AMB Questionnaire MARLINE-7 Date MARLINE - 7 assessed: 05/31/23 Source: Developed by Drs. Jerod Bang, Анна Jacobson, Horacio Espinosa and colleagues, with an educational maria del carmen from [employer]. Review of Systems Const All systems reviewed & are unremarkable except as noted in HPI and below Eyes Reports no additional complaints, Denies change in vision and Denies other visual disturbances Card Denies chest pain at rest, Denies chest pain with activity, Denies edema, Denies irregular heart rhythm, Denies claudication, Denies dyspnea, Denies dyspnea on exertion, Denies orthopnea, Denies paroxysmal nocturnal dyspnea and Denies slow heart rate Resp Denies cough, Denies dyspnea and Denies dyspnea on exertion GI Denies abdominal pain, Denies change in bowel habits, Denies excessive flatus, Denies nausea and Denies vomiting Denies urinary incontinence, Denies urinary hesitancy and Denies urinary urgency Musc Denies abnormal gait, Denies atrophy, Denies deformity and Denies limited range of motion Skin/Breast Denies bleeding lesions, Denies changing lesions and Denies rash Neuro Denies abnormal gait and Denies lack of coordination Physical exam (Primary Care) Vital Signs: Last Vital Signs Pulse 67 07/12/23 15:39 BP 144/84 H 07/12/23 15:39 Pulse Ox 98 07/12/23 15:39 Oxygen Delivery Method Room Air 07/12/23 15:39 BMI result Body Mass Index 38.1 Tobacco/Smoking Status: Tobacco use Status Tobacco use date assessed 05/31/23 07/12/23 15:40 Patient Tobacco Use Status Former Tobacco user 07/12/23 15:40 Tobacco use type Cigarette 07/12/23 15:40 e-Cigarette/Vaping Use Never Used 07/12/23 15:40 Thrive Assessment: Date of Thrive Assessment Date Thrive assessed 05/31/23 07/12/23 15:40 Neck Neck: Yes normal visual inspection and Yes supple Resp Effort & Inspection: normal respiratory effort Auscultation: clear to auscultation bilaterally Cardio Jugular venous distension: no JVD Rate: regular rate Rhythm: regular rhythm Heart sounds: S1 normal heart sound present and S2 normal heart sound present Extrem General: Yes full ROM Assessment and Plan Assessment & Plan (1) Mild recurrent major depression: Code(s): F33.0 - Major depressive disorder, recurrent, mild Plan: Continue fluoxetine. (2) Systolic CHF with reduced left ventricular function, NYHA class 2: Code(s): I50.20 - Unspecified systolic (congestive) heart failure Plan: Continue metoprolol. The goal is to not gain 5 lb in a week. Continue Entresto. (3) Diabetes mellitus, with long-term current use of insulin: Code(s): E11.9 - Type 2 diabetes mellitus without complications; Z79.4 - skilled nursing (current) use of insulin Plan: Continue insulin and metformin. Increase Ozempic. A1c goal is equal or less than 7%. (4) Hyperlipidemia LDL goal <70: Code(s): E78.5 - Hyperlipidemia, unspecified Plan: Continue statins and Zetia. LDL goal is less than 70 (5) Essential hypertension: Code(s): I10 - Essential (primary) hypertension Plan: Continue amlodipine and Entresto. Increase hydralazine from 10 mg 3 times a day to 25 mg 3 times a day. Recheck blood pressure with nurse navigator in 3 weeks. Blood pressure goal is equal or less than 130/80. Medications: New hydralazine 25 mg PO TID 30 days 90 tabs 3RF Changed From semaglutide (Ozempic) for 4 weeks 0.25 mg (0.368 mL) subcut QWEEK 28 days 1.472 mL 0RF E11.9 - Type 2 diabetes mellitus without complications To semaglutide (Ozempic) for 4 weeks 0.5 mg (0.736 mL) subcut QWEEK 28 days 2.944 mL 0RF E11.9 - Type 2 diabetes mellitus without complications Discontinued hydralazine Discontinued Reason: Patient Completed Course 10 mg PO TID 90 days 270 tabs 1RF I10 - Essential (primary) hypertension Coding Level of Care Code Est Pt Level 4 (86811) Diagnoses Mild recurrent major depression F33.0 Systolic CHF with reduced left ventricular function, NYHA class 2 I50.20 Diabetes mellitus, with long-term current use of insulin E11.9; Z79.4 Hyperlipidemia LDL goal <70 E78.5 Essential hypertension I10 Time Spent (min) 25
[2023-07-13 13:28] VITALS: BP 140/90
== END 2023-07-12 16:08 | disposition home or self-care (01) ==
PROVIDERS: PCP Internal Medicine; Visit Provider Internal Medicine
DX: I11.0 Hypertensive heart disease with heart failure (principal); I50.20 Unspecified systolic (congestive) heart failure; E11.9 Type 2 diabetes mellitus without complications; F33.0 Major depressive disorder, recurrent, mild
CPT/HCPCS: 99214

== ENCOUNTER 2023-07-18 12:29 | Outpatient (AMB) | payer OTHER, SELFPAY ==
--- NOTE | 2023-07-18 12:58 | MHC.OFFVIS ---
Intake Vital Signs 07/18/23 13:05 Height 5 ft Weight 195 lb BMI 38.1 Intake Visit Reasons: OV - left knee OA, last injection 09/09/21 Intake Note: Kori is a 57 year old female who presents today for a evaluation of her bilateral knee pain, last injection 09/09/21. Patient reports that her last injection for her left knee gave her relief for 2 years. She states her pain started to come back about 3 months ago on her left knee. Patient states that her right knee is worse than the left knee. Pain is worse when she is walking, sitting and using the stair. Patient tried/ failed 3 + moths of Tylenol. Patient tried/ failed lidocaine patches. She would like to know if she can get both of her knee injected. Allergies No Known Allergies [No Known Allergies*] Allergy (Verified 07/18/23 13:04) HPI OV - left knee OA, last injection 09/09/21 HPI Details 57-year-old Italian speaking female who returns to the office today for a follow-up of bilateral knee pain. She had her last left knee injection on 09/09/21 which provided him relief until 3 months ago. She currently states she has pain in her bilateral knee which is worse on her right knee. Her pain is aggravated with walking, sitting, and stair use. She has tried Tylenol for 3 months and lidocaine patches which did not provide her any relief. She would like to have a bilateral knee injection today. 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 Essential hypertension Dyslipidemia Diarrhea Right hand pain Lower back pain Gastroparesis Coronary artery disease Surgical History Hx of shoulder surgery Hx of colonoscopy History of hernia repair (~09/11/18) History of tubal ligation (~1989) History of open heart surgery (~01/2017) History of coronary artery bypass surgery Family History Father History of diabetes mellitus History of hypertension Mother Alzheimers disease Family/Other FH: mental illness Social History Household Members: Family Household Members Other:: daughter Housing: House Alcohol intake: never Patient Tobacco Use Status: Former Tobacco user Tobacco use type: Cigarette e-Cigarette/Vaping Use: Never Used Second Hand Smoke Exposure: No service: No Current occupational status: unemployed Current occupation: rt handed Cognitive needs: No Hearing needs: No Vision needs: Yes Review of Systems Const All systems reviewed & are unremarkable except as noted in HPI and below Physical Exam Vital Signs: BMI result Body Mass Index 38.1 Extrem Other: Bilateral knee: Skin intact, no erythema or joint effusion. Tenderness along the medial and lateral joint line. Full ROM with crepitus. Negative Rabia?s. No ligamentous laxity. NVI. Office Procedures Joint Injection/Drain Joint Injection/Drain Primary Site: right knee Secondary Site: left knee Prep: site was prepped using aseptic technique, ethochloride spray was applied and injection warnings given Injected: 40 mg of, DepoMedrol, with 8 mL of, 1% plain lidocaine and in the joint Approach Used: anterolateral Procedure: The patient tolerated the procedure well and there was some relief with the local anesthesia Coding 14962 - Glenohumeral/Tronchanteric Bursa/Intraarticular Procedure code (CPT) selection complete Assessment & Plan Assessment & Plan (1) Osteoarthritis of left knee: Code(s): M17.12 - Unilateral primary osteoarthritis, left knee Qualifiers: Osteoarthritis type: primary Qualified Code(s): M17.12 - Unilateral primary osteoarthritis, left knee (2) Osteoarthritis of right knee: Code(s): M17.11 - Unilateral primary osteoarthritis, right knee Qualifiers: Osteoarthritis type: primary Qualified Code(s): M17.11 - Unilateral primary osteoarthritis, right knee Plan We discussed options today which include steroid injection. They did consent to move forward with the bilateral knee injection, which was tolerated well. I recommended rest, ice and elevation and OTC anti-inflammatories PRN for discomfort. We also discussed their diabetes and the effect the steroid can have on their blood glucose levels; therefore, they will continue to monitor these very closely over the next 72 hours. If there are any concerns, they should report to the ED immediately. Patient Instructions: Scribed for Taz Stoner PA-C, by Amilcar Fofana medical equipment repair technician, on 07/18/2023 at 1:15 PM Taz IRVIN PA-C, have personally reviewed and agree with the information entered by the scribe. Coding Level of Care Code Est Pt Level 3 (96846) Diagnoses Primary osteoarthritis of left knee M17.12 Osteoarthritis type: primary Primary osteoarthritis of right knee M17.11 Osteoarthritis type: primary CPT Codes Coding - Joint 7: 09229 - Glenohumeral/Tronchanteric Bursa/Intraarticular ([id number])
[2023-07-18 13:05] VITALS: BMI 38.1
== END 2023-07-18 13:36 | disposition home or self-care (01) ==
PROVIDERS: PCP Internal Medicine; Visit Provider Physician Assistant
DX: M17.0 Bilateral primary osteoarthritis of knee (principal)
CPT/HCPCS: 20610; 99213

== ENCOUNTER → 2023-07-18 12:29 | Outpatient (BNVA) | payer OTHER, SELFPAY | PROVIDERS: PCP Internal Medicine; Visit Provider Physician Assistant | DX: M17.0 Bilateral primary osteoarthritis of knee (principal) | CPT/HCPCS: 20610; 99212; J1020 ==

== ENCOUNTER 2023-09-26 09:25 | Outpatient (REF) | payer OTHER, SELFPAY ==
[2023-09-26 09:35] LABS: MANUAL DIFF FLAG NO
[2023-09-26 10:09] LABS: Basophils Absolute Auto 0.1 X10*3/uL (0.0-0.2); Basophils Percent Auto 0.8 % (0-2); Eosinophils Absolute Auto 0.2 X10*3/uL (0.0-0.4); Hematocrit 42.1 % (37.0-47.0); Hemoglobin 13.6 g/dl (12.0-16.0); Imm Gran Abs Auto 0.03 X10*3/uL (0.00-0.03); Imm Gran Pct Auto 0.4 % (0.0-0.4); Lymphocytes Absolute Auto 3.3 X10*3/uL (1.2-4.9); Mean Corpuscular HGB Conc 32.3 g/dl (31.0-35.0); Mean Corpuscular Hemoglobin 26.7 pg (27.0-33.0); Mean Corpuscular Volume 82.5 fL (80.0-98.0); Mean Platelet Volume 9.1 fL (9.4-12.3); Monocytes Absolute Auto 0.6 X10*3/uL (0.1-1.2); Neutrophils Absolute Auto 3.8 x10*3/uL (2.0-8.3); Neutrophils Percent Auto 47.8 % (45-73); Platelet Count 241 X10*3/uL (160-400); Red Cell Distribution Width 14.1 % (11.0-16.0); White Blood Count 7.9 X10*3/uL (4.8-10.8)
[2023-09-26 11:31] LABS: Creatinine Urine 165.55 mg/dL; Microalbum/Creatinine Ratio Ur 8.4 ug/mg cr (<30)
[2023-09-26 11:31] LABS: Alanine Aminotransferase 25 U/L (0-31); Albumin Level 4.4 g/dL (3.5-5.0); Alkaline Phosphatase 63 U/L (39-117); Anion Gap 12 (12-20); Aspartate Amino Transferase 20 U/L (5-31); Blood Urea Nitrogen 18 mg/dL (9-16); Calcium 9.6 mg/dL (8.4-10.2); Carbon Dioxide 25 mmol/L (22-29); Chloride 107 mmol/L (96-108); Cholesterol 76 mg/dL (<200); Estimated Glomerular Filt Rate > 60; Glucose Fasting 95 mg/dL (60-99); HDL Cholesterol 31 mg/dL (>40); Iron 60 mcg/dL (30-160); LDL Cholesterol Calculated 28 mg/dL (<100); Percent Iron Saturation 21 % (15-50); Potassium 4.2 mmol/L (3.3-5.1); Sodium 140 mmol/L (135-145); Total Iron Binding Capacity 284 mcg/dL (228-428); Total Protein 7.6 g/dL (6.5-8.0); Triglycerides 89 mg/dL (<150); Unsaturated Iron Binding 224 ug/dL
[2023-09-26 11:47] LABS: Vitamin D 25-OH Total 42.2 ng/mL (>30)
[2023-09-26 12:00] LABS: Folate 10.6 ng/mL (> or = 4.0); Vitamin B12 369 pg/mL (200-900)
[2023-10-01 23:18] LABS: NT-proBNP 56 pg/mL (<125)
== END 2023-09-26 09:26 | disposition home or self-care (01) ==
LOC: HO.LAB 09:25
PROVIDERS: PCP Internal Medicine; Visit Provider Internal Medicine
DX: D64.9 Anemia, unspecified (principal); E11.9 Type 2 diabetes mellitus without complications; I50.20 Unspecified systolic (congestive) heart failure; E55.9 Vitamin D deficiency, unspecified; Z79.4 Long term (current) use of insulin; E78.5 Hyperlipidemia, unspecified; E53.8 Deficiency of other specified B group vitamins
CPT/HCPCS: 36415; 80053; 80061; 82043; 82306; 82570; 82607; 82746; 83540; 83880; 85025

== ENCOUNTER 2023-10-03 07:55 | Outpatient (AMB) | payer OTHER, SELFPAY ==
[2023-10-03 08:01] VITALS: BP 132/78; BMI 37.1
--- NOTE | 2023-10-03 08:01 | A.OFFPC_ITS ---
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 Accompanied by: Self / Same As Patient Allergies No Known Allergies [No Known Allergies*] Allergy (Verified 10/03/23 08:19) Medication List - Last Reconciled 10/03/23 by Chen Chase MD amlodipine 10 mg PO DAILY 90 days ammonium lactate 12% 1 appl See Protocol topical BID aspirin 81 mg PO DAILY 90 days atorvastatin 80 mg PO BEDTIME 90 days blood sugar diagnostic (FreeStyle Lite Strips) As directed three times a day blood-glucose meter (FreeStyle Lite Meter kit) to test blood glucose 4x/day cholecalciferol (vitamin D3) 25 mcg PO DAILY 30 days cream base no.193 (bulk) (Versatile topical cream) 1 appl topical TID ezetimibe 10 mg PO DAILY flash glucose scanning reader (Vis[employer]Style Arsalan 2 [place]) As directed flash glucose sensor (FreeStyle Arsalan 2 Sensor kit) As directed fluoxetine 20 mg PO DAILY hydralazine 50 mg PO TID insulin glargine (Lantus Solostar U-100 Insulin) 32 units (0.32 mL) subcut DAILY 90 days insulin lispro (Admelog SoloStar U-100 Insulin lispro) 4 - 6 units (0.04 - 0.06 mL) subcut TID lancets (TRUEplus Lancets) As directed 4 x/day metformin 1,000 mg PO BID 90 days metoclopramide HCl (Reglan) 5 mg PO QIDACHS naproxen 500 mg PO BID PRN 7 days naproxen (Naprosyn) 500 mg PO BID nitroglycerin 0.4 mg sublingual Q5M pen needle, diabetic (BD Ultra-Fine Rika Pen Needle) As directed four times a day sacubitril-valsartan 49-51 mg (Entresto) 1 tab PO BID semaglutide 1 mg (0.75 mL) subcut QWEEK 30 days sucralfate 3 grams (3 x 1 gram) PO DAILY trazodone 100 mg PO BEDTIME PRN Tobacco use date assessed: 05/31/23 Dental Screening Dental Screen Date: 05/31/23 HPI HPI Comments History of Present Illness Details This is a 58-year-old female with diabetes mellitus type 2 on long-term current use of insulin, hypertension, hyperlipidemia, mild major depression and systolic congestive heart failure that comes today for follow-up on her con ditions. A1c within goal. Blood pressure stable. LDL within goal. Mild major depression is follow by Psychiatry and has been stable with SSRIs. Congestive heart failure is follow by cardiology and she has not gain 5 lb in a week. Last nt-proBNP was normal. As per patient last echocardiogram was a year ago. Denies any chest pain or shortness on breath. [facility] Medical History (Updated 10/03/23 @ 09:06 by Chen Chase MD) FPC current use of insulin Morbid obesity Coronary artery disease with angina pectoris CVA (cerebral vascular accident) Brain TIA Osteoarthritis of left shoulder Skin lesion Diarrhea Morbid obesity Diabetes mellitus Alopecia Mild recurrent major depression Systolic CHF with reduced left ventricular function, NYHA class 2 Dizziness Polyarthralgia Left knee pain Anxiety Pulmonary nodule Degenerative joint disease Depression 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 Essential hypertension Dyslipidemia Diarrhea Right hand pain Lower back pain Gastroparesis Coronary artery disease Surgical History Hx of shoulder surgery Hx of colonoscopy History of hernia repair (~09/11/18) History of tubal ligation (~1989) History of open heart surgery (~01/2017) History of coronary artery bypass surgery Family History Father History of diabetes mellitus History of hypertension Mother Alzheimers disease Family/Other FH: mental illness Social History Household Members: Family Household Members Other:: daughter Housing: House Alcohol intake: never Patient Tobacco Use Status: Former Tobacco user Tobacco use type: Cigarette e-Cigarette/Vaping Use: Never Used Second Hand Smoke Exposure: No service: No Current occupational status: unemployed Current occupation: rt handed Cognitive needs: No Hearing needs: No Vision needs: Yes Questionnaire PHQ-9 Over the last 2 weeks, how often have you been bothered by any of the following problems? 1. Little interest or pleasure in doing things: several days 2. Feeling down, depressed, or hopeless: several days 3. Trouble falling or staying asleep, or sleeping too much: several days 4. Feeling tired or having little energy: several days 5. Poor appetite or overeating: several days 6. Feeling bad about yourself - or that you are a failure or have let yourself or your family down: not at all 7. Trouble concentrating on things, such as reading the newspaper or watching television: not at all 8. Moving or speaking so slowly that other people could have noticed. Or the opposite - being so fidgety or restless that you have been moving around a lot more than usual: not at all 9. Thoughts that you would be better off or of hurting yourself in some way: not at all Total score: 5 Depression Screening Interpretation: Positive Depression Screening Follow-up: Existing condition, In treatment, Community Mental Health Worker F/U and Follow- up Visit Requested Depression Screening Done: Yes 80631 - PHQ-9 Billing: Yes Source: Developed by Drs. Jerod Bang, Анна Jacobson, Horacio Espinosa and colleagues, with an educational maria del carmen from [employer]. Thrive Questionnaire Date Thrive assessed: 05/31/23 MARLINE-7 AMB Questionnaire MARLINE-7 Date MARLINE - 7 assessed: 05/31/23 Source: Developed by Drs. Jerod Bang, Анна Jacobson, Horacio Espinosa and colleagues, with an educational maria del carmen from [employer]. Review of Systems Const All systems reviewed & are unremarkable except as noted in HPI and below Card Denies chest pain at rest, Denies chest pain with activity, Denies edema, Denies irregular heart rhythm, Denies claudication, Denies orthopnea, Denies paroxysmal nocturnal dyspnea and Denies slow heart rate Neuro Denies behavioral changes and Denies lack of coordination Psych Denies behavioral changes Physical exam (Primary Care) Vital Signs: Last Vital Signs BP 132/78 10/03/23 08:01 BMI result Body Mass Index 37.1 BMI Assessment/Plan discussion: High BMI High, discussed plan: lifestyle, weight reduction, dietary and physical activity Tobacco/Smoking Status: Tobacco use Status Tobacco use date assessed 05/31/23 10/03/23 08:08 Patient Tobacco Use Status Former Tobacco user 10/03/23 08:08 Tobacco use type Cigarette 10/03/23 08:08 e-Cigarette/Vaping Use Never Used 10/03/23 08:08 Depression Screening Interpretation: Positive Depression Screening Follow-up: Existing condition, In treatment, Community Mental Health Worker F/U and Follow- up Visit Requested Thrive Assessment: Date of Thrive Assessment Date Thrive assessed 05/31/23 10/03/23 08:08 Resp Effort & Inspection: normal respiratory effort Auscultation: clear to auscultation bilaterally Cardio Jugular venous distension: no JVD Rate: regular rate Rhythm: regular rhythm Heart sounds: S1 normal heart sound present and S2 normal heart sound present Extrem General: Yes full ROM Results AMB Hemoglobin A1c AMB Hemoglobin A1c 6.0 % Last Edit by MICHAEL Almonte on 10/03/23 08:1 7 Results Reviewed Results Reviewed: Laboratory Last Values Hgb A1c (Clinic) 6.0 % (4.0-6.0) 10/03/23 08:00 Assessment and Plan Assessment & Plan (1) Diabetes mellitus, with long-term current use of insulin: Code(s): E11.9 - Type 2 diabetes mellitus without complications; Z79.4 - FPC (current) use of insulin Qualifiers: Diabetes mellitus type: type 2 Diabetes mellitus complication status: without complication Qualified Code(s): E11.9 - Type 2 diabetes mellitus without complications; Z79.4 - terminal gauger (current) use of insulin Plan: Continue insulin, Ozempic and metformin. A1c goal is equal or less than 7%. (2) Mild recurrent major depression: Code(s): F33.0 - Major depressive disorder, recurrent, mild Plan: Continue SSRIs. Follow-up with psychiatry. (3) Systolic CHF with reduced left ventricular function, NYHA class 2: Code(s): I50.20 - Unspecified systolic (congestive) heart failure Plan: Continue Entresto. Echocardiogram ordered. Follow-up with Cardiology. The goal is to not gain 5 lb in a week. (4) Essential hypertension: Code(s): I10 - Essential (primary) hypertension Plan: Continue hydralazine and Entresto. Blood pressure goal is equal or less than 130/80. (5) Hyperlipidemia LDL goal <70: Code(s): E78.5 - Hyperlipidemia, unspecified Plan: Continue statins. LDL goal is less than 70. Orders: Orders AMB Hemoglobin A1c Today E11.9 - Type 2 diabetes mellitus without complications, Z79.4 - FPC (current) use of insulin Lipid Panel 4 Months E78.5 - Hyperlipidemia, unspecified Microalbumin, Random (w Creat) 4 Months E11.9 - Type 2 diabetes mellitus without complications Vitamin D 25-OH Total 4 Months E55.9 - Vitamin D deficiency, unspecified CA echo transthoracic complete Today I50.20 - Unspecified systolic (congestive) heart failure Comprehensive [place]. Panel Fast 4 Months E11.9 - Type 2 diabetes mellitus without complications, Z79.4 - terminal gauger (current) use of insulin NT-proBNP 4 Months I50.20 - Unspecified systolic (congestive) heart failure Medications: Changed From naproxen 500 mg PO BID 7 days PRN 14 tabs 0RF pain To naproxen 500 mg PO BID 30 days PRN 60 tabs 0RF pain Coding Level of Care Code Est Pt Level 4 (55747) Complex EM visit Add On G2211 Diagnoses Type 2 diabetes mellitus without complication, with long-term current use of insulin E11.9; Z79.4 Diabetes mellitus type: type 2 Diabetes mellitus complication status: without complication Mild recurrent major depression F33.0 Systolic CHF with reduced left ventricular function, NYHA class 2 I50.20 Essential hypertension I10 Hyperlipidemia LDL goal <70 E78.5 Time Spent (min) 25
== END 2023-10-03 08:29 | disposition home or self-care (01) ==
PROVIDERS: PCP Internal Medicine; Visit Provider Internal Medicine
DX: E11.9 Type 2 diabetes mellitus without complications (principal); Z79.4 Long term (current) use of insulin; F33.0 Major depressive disorder, recurrent, mild; I50.20 Unspecified systolic (congestive) heart failure; I10 Essential (primary) hypertension; E78.5 Hyperlipidemia, unspecified
CPT/HCPCS: 83036; 99214; G2211

== ENCOUNTER → 2023-10-24 08:57 | Outpatient (REF) | payer OTHER, SELFPAY ==
--- NOTE | 2023-10-24 09:01 | CA_ITS ---
Transthoracic Echocardiogram Patient (Last, First, Middle): Kori Underwood, Gender: Female Date of : 1965 Age: 58 Procedure Date: 10/24/2023 Procedure Type: Transthoracic Echocardiogram Location: OP Height: 152.4 cm Weight: 86.18 kg BSA: 1.83 m2 Heart Rate: bpm BP: 124 / 80 mmHg Bi Tester: Referring MD: Chen Chase MD Symptoms: I50.20 - Unspecified systolic (congestive) heart failure Study Quality: Good ECG Rhythm: Sinus Conclusions: - The left ventricular systolic function is mildly decreased. The visually estimated ejection fraction is between 45-50%. - There is moderately increased left ventricular wall thickness. - No obvious valvular pathology seen on this study. Findings Left Ventricle Normal left ventricular cavity size. There is moderately increased left ventricular wall thickness. The left ventricular systolic function is mildly decreased. The visually estimated ejection fraction is between 45-50%. There is mild global hypokinesis. Evidence suggests grade I (mild) diastolic dysfunction. Right Ventricle Mildly increased right ventricular cavity size. There is mildly decreased right ventricular systolic function. Atria Both atria are normal in size. Aortic Valve There is a normal trileaflet aortic valve. There is no aortic valve stenosis. There is no aortic valve regurgitation. Mitral Valve The mitral valve appears normal. There is no mitral valve regurgitation. There is no mitral valve stenosis. Pulmonic Valve The pulmonic valve is likely normal. Tricuspid Valve There is trace tricuspid valve regurgitation. There is no evidence of pulmonary hypertension. Great Vessels The asc aorta is normal in size. Venous The inferior vena cava is normal in size and collapses greater than 50% with inspiration. Pericardium/Pleural There is no evidence of pericardial effusion. Prior Study Comparison No prior study available for comparison. Recommendations, Care & Conclusions No obvious valvular pathology seen on this study. Measurements 2D Linear Measurements IVSd: 1.35 0.6-0.9/0.6-1.0 cm LVIDd: 4.28 3.9-5.3/4.2-5.9 cm LVIDd Index: 2.34 2.4-3.2/2.2-3.1 cm/m2 LVIDs: 2.84 2.0-3.6 cm LVPWd: 1.30 0.7-1.1 cm Ao Root: 3.40 2.1-3.5 cm LA Diam: 5.00 2.7-3.8/3.0-4.0 cm LAIDs Index: 2.73 1.5-2.3 cm/m2 LV Mass: 264.59 67-162/88-224 g LV Mass Index: 144.58 43-95/49-115 g/m2 LVOT Diam: 2.20 3.0+(-)1.3 cm 2D Systolic Function EF 4C: 42.90 >55% EF 2C: 60.80 >55% EF BiP: 51.10 >55% Mitral Valve MV VTI: 0.30 MV Pk Ervin: 0.95 MV Mn Ervin: 0.60 MV Pk Grad: 4.00 MV Mn Grad: 2.00 MV Pk E: 0.57 MV PK A: 0.80 MV Decel Time: 125.00 E/A: 0.70 E'Lateral: 7.18 E'Medial: 5.11 E/E' Med: 11.10 E/E' Lat: 7.90 PHT: 37.00 MVA PHT: 5.95 MVA Continuity: 1.93 Decel Stanton: 4.52 Aortic Valve AoV Pk Ervin: 1.03 AoV Mn Ervin: 0.73 AoV VTI: 0.25 AoV Pk Grad: 4.00 Aov Mn Grad: 2.00 YOSI Cont.VTI: 2.33 LVOT LVOT Pk Ervin: 0.72 LVOT Mn Ervin: 0.46 LVOT VTI: 0.15 LVOT Pk Grad: 2.00 LVOT Mn Grad: 1.00 LVOT Diam: 2.20 LVOT Area: 3.80 Diastolic Function MV Pk E: 0.57 MV Pk A: 0.80 E/A: 0.70 E'Medial: 5.11 E/E' Med: 11.10 E' Laterial: 7.18 E/E' Lat: 7.90 Right Ventricle TAPSE (mm): 17.00 TVS' Ervin: 9.00 Tricuspid Valve TR Pk Ervin: 2.23 TR Pk Grad: 20.00 RA Press: 3.00 RVSP: 23.00 Great Vessels Aorta Ao Root-2D: 3.40 2.0-3.7 cm Ao Asc: 3.60 2.1-3.4 cm Pulmonary Valve PV Pk Ervin: 0.85 Peak PV Grad: 3.00 Updated in Other Vendor System with Status of Final Az Blackburn MD electronically signed on 10/25/2023 2:18:01 PM with status of Final
== END ==
LOC: HO.CARD 08:57
PROVIDERS: PCP Internal Medicine; Visit Provider Internal Medicine
DX: I50.20 Unspecified systolic (congestive) heart failure (principal)
CPT/HCPCS: 93306

== ENCOUNTER → 2023-10-24 09:01 | Outpatient (BNV) | payer OTHER, SELFPAY | PROVIDERS: PCP Internal Medicine; Visit Provider Internal Medicine | DX: I50.20 Unspecified systolic (congestive) heart failure (principal); R93.1 Abnormal findings on diagnostic imaging of heart and coronary circulation | CPT/HCPCS: 93306 ==

== ENCOUNTER 2024-01-10 08:24 | Outpatient (AMB) | payer OTHER, SELFPAY ==
--- NOTE | 2024-01-10 08:27 | MHC.OFFVIS ---
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 Pt states she has more pain on her right side than her left. Pt states she has right sided pain all the time. Pt states she has hasd this pain for some time now but sttaes within the past 2 months it has gotten worse. Pt denies any injury to her back and sandra any previous surgeries or injections. 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 And Box Shop Supervisor Language: Seaman Officer Name: Tracie ([id number]) Allergies No Known Allergies [No Known Allergies*] Allergy (Verified 01/10/24 08:27) Medication List - Last Reconciled 01/10/24 by Mrey Ricks MD amlodipine 10 mg PO DAILY 90 days ammonium lactate 12% 1 appl See Protocol topical BID aspirin 81 mg PO DAILY 90 days atorvastatin 80 mg PO BEDTIME 90 days blood sugar diagnostic (FreeStyle Lite Strips) As directed three times a day blood-glucose meter (FreeStyle Lite Meter kit) to test blood glucose 4x/day cholecalciferol (vitamin D3) 25 mcg PO DAILY 30 days cream base no.193 (bulk) (Versatile topical cream) 1 appl topical TID ezetimibe 10 mg PO DAILY flash glucose scanning reader ([employer]Style Arsalan 2 [place]) As directed flash glucose sensor (FreeStyle Arsalan 2 Sensor kit) As directed fluoxetine 20 mg PO DAILY hydralazine 50 mg PO TID insulin glargine (Lantus Solostar U-100 Insulin) 32 units (0.32 mL) subcut DAILY 90 days insulin lispro (Admelog SoloStar U-100 Insulin lispro) 4 - 6 units (0.04 - 0.06 mL) subcut TID lancets (TRUEplus Lancets) As directed 4 x/day metformin 1,000 mg PO BID 90 days metoclopramide HCl (Reglan) 5 mg PO QIDACHS naproxen (Naprosyn) 500 mg PO BID naproxen 500 mg PO BID PRN 30 days nitroglycerin 0.4 mg sublingual Q5M pen needle, diabetic (BD Ultra-Fine Rika Pen Needle) As directed four times a day sacubitril-valsartan 49-51 mg (Entresto) 1 tab PO BID semaglutide 1 mg (0.75 mL) subcut QWEEK 30 days sucralfate 3 grams (3 x 1 gram) PO DAILY trazodone 100 mg PO BEDTIME PRN HPI Comments Details: Back pain started becoming severe for past 1 1/2 months. Worse with sitting and standing. Better with laying. It is more right sided, non radicular, without numbness on his leg and no weakness. No inciting injuries or falls. Says had heart surgery 7 years ago, started having back pain after that, treated with PT. It was mild before but had gotten worse for past 1 1/2 years. Treatment done so far: NSAIDs - temporary relief No PT yet this year Says she had MRI many years ago and was told to have disc herniation. Not available for my review. 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 Essential hypertension Dyslipidemia Diarrhea Right hand pain Lower back pain Gastroparesis Coronary artery disease Surgical History Hx of shoulder surgery Hx of colonoscopy History of hernia repair (~09/11/18) History of tubal ligation (~1989) History of open heart surgery (~01/2017) History of coronary artery bypass surgery Family History Father History of diabetes mellitus History of hypertension Mother Alzheimers disease Family/Other FH: mental illness Social History Household Members: Family Household Members Other:: daughter Housing: House Alcohol intake: never Patient Tobacco Use Status: Former Tobacco user Tobacco use type: Cigarette e-Cigarette/Vaping Use: Never Used Second Hand Smoke Exposure: No service: No Current occupational status: unemployed Current occupation: rt handed Cognitive needs: No Hearing needs: No Vision needs: Yes Review of Systems Const All systems reviewed & are unremarkable except as noted in HPI and below Physical Exam Constitutional: Patient appears to be in no acute distress, well nourished and well developed. Patient was appropriately conversant and oriented. Good historian. MSK: No specific abnormalities found on inspection of the spine and all extremities. Tender on thoracic spinous processes. Tenderness over lumbar area, SI joint or GT. Lumbar ROM was full. Bilateral hip, knee and ankle ROM WNL. No ligamentous laxity or crepitance. No increased effusion. Straight-leg raising test negative. FABERE test negative. Strength is 5/5 in all muscle groups tested. No increased tone noted. Neurological: Neurologic examination of the upper and lower extremities was nonfocal with intact sensation, muscle stretch reflexes and without focal motor deficits . Huitron?s negative bilaterally. Babinski was down going bilaterally. Clonus was negative. Gait is non-antalgic without loss of balance. Results Reviewed Results Reviewed: I reviewed records from the following: Ortho - follows for knee injections Pain Management in 2021 for shoulder pain PCP Assessment & Plan Assessment & Plan (1) Thoracic back pain: Code(s): M54.6 - Pain in thoracic spine Category: Medical Qualifiers: Chronicity: acute Back pain laterality: midline Qualified Code(s): M54.6 - Pain in thoracic spine (2) Back pain: Code(s): M54.9 - Dorsalgia, unspecified Category: Medical Qualifiers: Back pain location: low back pain Chronicity: acute Back pain laterality: bilateral Sciatica presence: without sciatica Qualified Code(s): M54.50 - Low back pain, unspecified Plan Complaining of lower back pain, nonradicular, but tender on thoracic area. No signs of neurologic deficits. Sending for x-rays thoracic spine and lumbar spine. Referring to physical therapy. Assessment and plan discussed with patient, and patient was agreeable. All questions were answered thoroughly. Follow up in 1 month recommended, but patient says she is leaving for [place] in uncertain when she is coming back. She did say that she will start physical therapy before she leaves. Mery Ricks MD, BEN Board Certified, [place] Board of Physical Medicine and Rehabilitation (ABPMR) Board Certified, [place] Board of Electrodiagnostic Medicine (ABEM) Orders: Orders XR thoracic spine 3V Today M54.6 - Pain in thoracic spine XR lumbar spine 2-3V Today M54.9 - Dorsalgia, unspecified PT Evaluation and Treatment Today M17.0 - Bilateral primary osteoarthritis of knee, M54.6 - Pain in thoracic spine, M54.9 - Dorsalgia, unspecified Coding Level of Care Code New Pt Level 4 (59054) Diagnoses Acute midline thoracic back pain M54.6 Chronicity: acute Back pain laterality: midline Acute bilateral low back pain without sciatica M54.50 Back pain location: low back pain Chronicity: acute Back pain laterality: bilateral Sciatica presence: without sciatica
== END 2024-01-10 09:00 | disposition home or self-care (01) ==
PROVIDERS: PCP Internal Medicine; Visit Provider Physical Medicine & Rehabilitation
DX: M54.6 Pain in thoracic spine (principal); M54.50 Low back pain, unspecified
CPT/HCPCS: 99203

== ENCOUNTER 2024-01-10 08:24 | Outpatient (REF) | payer OTHER, SELFPAY ==
--- NOTE | ~2024-01-10 | XR_ITS ---
EXAMINATION: XR THORACIC SPINE CLINICAL INFORMATION: Osteoarthritis, knees COMPARISON: None available. TECHNIQUE: 3 views of the thoracic spine were obtained. FINDINGS: No acute cortical disruption. No gross malalignment. Multilevel marginal osteophyte formation and endplate sclerosis with decreased intervertebral disc height. No lytic or blastic lesions. Sternal wires. Vascular clips lower mediastinum and right upper quadrant abdomen. XR/XR thoracic spine 3V IMPRESSION: Multilevel spondylosis without acute fracture or listhesis. Electronically signed by: Dean Pan MD 02/26/2024 09:16 AM [facility]
--- NOTE | ~2024-01-10 | XR_ITS ---
EXAMINATION: XR LUMBOSACRAL SPINE CLINICAL INFORMATION: Pain. COMPARISON: None available. TECHNIQUE: Three views of the lumbosacral spine. FINDINGS: No acute cortical disruption or malalignment. Facet joint hypertrophy bilaterally at L5-S1. No lytic or blastic lesions. Multilevel marginal osteophyte formation, endplate sclerosis and decreased intervertebral disc and lower thoracic spine. XR/XR lumbar spine 2-3V IMPRESSION: Spondylosis without acute fracture or listhesis. Electronically signed by: Dean aPn MD 02/26/2024 09:17 AM [facility]
== END 2024-01-10 08:25 | disposition home or self-care (01) ==
LOC: HO.HOSX 08:24
PROVIDERS: PCP Internal Medicine; Visit Provider Physical Medicine & Rehabilitation
DX: M54.6 Pain in thoracic spine (principal); M54.9 Dorsalgia, unspecified; M54.50 Low back pain, unspecified
CPT/HCPCS: 72072; 72100; 99202

== ENCOUNTER → 2024-01-10 09:10 | Outpatient (BNV) | payer OTHER, SELFPAY | PROVIDERS: PCP Internal Medicine; Visit Provider Radiology Diagnostic Radiology | DX: M47.816 Spondylosis without myelopathy or radiculopathy, lumbar region (principal) | CPT/HCPCS: 72072; 72100 ==

== ENCOUNTER 2024-02-04 10:06 | Outpatient (REF) | payer OTHER, SELFPAY ==
[2024-02-04 11:21] LABS: Creatinine Urine 199.32 mg/dL
[2024-02-04 11:33] LABS: Alanine Aminotransferase 19 U/L (0-31); Albumin Level 4.2 g/dL (3.5-5.0); Alkaline Phosphatase 73 U/L (39-117); Anion Gap 9 (12-20); Aspartate Amino Transferase 17 U/L (5-31); Bilirubin Total 0.6 mg/dL (0.0-1.0); Blood Urea Nitrogen 20 mg/dL (9-16); Calcium 9.5 mg/dL (8.4-10.2); Carbon Dioxide 28 mmol/L (22-29); Chloride 109 mmol/L (96-108); Cholesterol 98 mg/dL (<200); Estimated Glomerular Filt Rate > 60; Glucose Fasting 95 mg/dL (60-99); HDL Cholesterol 30 mg/dL (>40); LDL Cholesterol Calculated 45 mg/dL (<100); Potassium 4.2 mmol/L (3.3-5.1); Sodium 142 mmol/L (135-145); Total Protein 7.2 g/dL (6.5-8.0); Triglycerides 115 mg/dL (<150)
[2024-02-04 11:49] LABS: Vitamin D 25-OH Total 53.4 ng/mL (>30)
[2024-02-07 21:33] LABS: NT-proBNP 86 pg/mL (<125)
== END 2024-02-04 10:07 | disposition home or self-care (01) ==
LOC: HO.LAB 10:06
PROVIDERS: PCP Internal Medicine; Visit Provider Internal Medicine
DX: E11.9 Type 2 diabetes mellitus without complications (principal); Z79.4 Long term (current) use of insulin; E78.5 Hyperlipidemia, unspecified; I50.20 Unspecified systolic (congestive) heart failure; E55.9 Vitamin D deficiency, unspecified
CPT/HCPCS: 36415; 80053; 80061; 82043; 82306; 82570; 83880

== ENCOUNTER 2024-02-21 14:50 | Outpatient (AMB) | payer OTHER, SELFPAY ==
--- NOTE | 2024-02-21 15:08 | MHC.PC.OV ---
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 Accompanied by: Self / Same As Patient Allergies No Known Allergies [No Known Allergies*] Allergy (Verified 02/21/24 15:21) Medication List - Last Reconciled 02/21/24 by Chen Chase MD amlodipine 10 mg PO DAILY 90 days ammonium lactate 12% 1 appl See Protocol topical BID aspirin 81 mg PO DAILY 90 days atorvastatin 80 mg PO BEDTIME 90 days blood sugar diagnostic (FreeStyle Lite Strips) As directed three times a day blood-glucose meter (FreeStyle Lite Meter kit) to test blood glucose 4x/day cholecalciferol (vitamin D3) 25 mcg PO DAILY 30 days cream base no.193 (bulk) (Versatile topical cream) 1 appl topical TID ezetimibe 10 mg PO DAILY flash glucose scanning reader (High FidelityStyle Arsalan 2 [place]) As directed flash glucose sensor (FreeStyle Arsalan 2 Sensor kit) As directed fluoxetine 20 mg PO DAILY hydralazine 50 mg PO TID insulin glargine (Lantus Solostar U-100 Insulin) 32 units (0.32 mL) subcut DAILY 90 days insulin lispro (Admelog SoloStar U-100 Insulin lispro) 4 - 6 units (0.04 - 0.06 mL) subcut TID lancets (TRUEplus Lancets) As directed 4 x/day metformin 1,000 mg PO BID 90 days metoclopramide HCl (Reglan) 5 mg PO QIDACHS naproxen (Naprosyn) 500 mg PO BID naproxen 500 mg PO BID PRN 30 days nitroglycerin 0.4 mg sublingual Q5M pen needle, diabetic (BD Ultra-Fine Rika Pen Needle) As directed four times a day sacubitril-valsartan 49-51 mg (Entresto) 1 tab PO BID semaglutide 1 mg (0.75 mL) subcut QWEEK 30 days sucralfate 3 grams (3 x 1 gram) PO DAILY trazodone 100 mg PO BEDTIME PRN Tobacco use date assessed: 05/31/23 Dental Screening Dental Screen Date: 02/21/24 Did you have a dental visit in the last 12 months?: No Did you have a dental problem in the last 6 months where you did not have access to dental care?: No Was dental information given to patient?: Patient has dentist HPI HPI Comments History of Present Illness Details This is a 58-year-old female with mild recurrent major depression, diabetes mellitus type 2 on long-term current use of insulin and systolic congestive heart failure that comes today for her physical exam. Depression stable with SSRIs. A1c within goal. Has not gain 5 lb in a week and congestive heart failure is follow by cardiology. Mammogram done less than a year ago. Colonoscopy done 2017 and was normal and next colonoscopy should be 2027. Pap smear was over 4 years ago. Will be referred to OBGYN for Pap smear. [facility] Medical History (Updated 02/21/24 @ 15:55 by Chen Chase MD) FDC current use of insulin Morbid obesity Coronary artery disease with angina pectoris CVA (cerebral vascular accident) Brain TIA Osteoarthritis of left shoulder Skin lesion Diarrhea Morbid obesity Diabetes mellitus Alopecia Mild recurrent major depression Systolic CHF with reduced left ventricular function, NYHA class 2 Dizziness Polyarthralgia Left knee pain Anxiety Pulmonary nodule Degenerative joint disease Depression 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 Essential hypertension Dyslipidemia Diarrhea Right hand pain Lower back pain Gastroparesis Coronary artery disease Surgical History (Updated 02/21/24 @ 15:27 by Chen Chase MD) Hx of shoulder surgery Hx of colonoscopy History of hernia repair (~09/11/18) History of tubal ligation (~1989) History of open heart surgery (~01/2017) History of coronary artery bypass surgery Family History (Updated 02/21/24 @ 15:28 by Chen Chase MD) Father History of diabetes mellitus History of hypertension Mother Parkinson disease Family/Other FH: mental illness Social History Household Members: Family Household Members Other:: daughter Housing: House Alcohol intake: never Patient Tobacco Use Status: Former Tobacco user Tobacco use type: Cigarette e-Cigarette/Vaping Use: Never Used Second Hand Smoke Exposure: No service: No Current occupational status: unemployed Current occupation: rt handed Cognitive needs: No Hearing needs: No Vision needs: Yes Questionnaire PHQ-9 Over the last 2 weeks, how often have you been bothered by any of the following problems? 1. Little interest or pleasure in doing things: not at all 2. Feeling down, depressed, or hopeless: not at all 3. Trouble falling or staying asleep, or sleeping too much: not at all 4. Feeling tired or having little energy: not at all 5. Poor appetite or overeating: not at all 6. Feeling bad about yourself - or that you are a failure or have let yourself or your family down: not at all 7. Trouble concentrating on things, such as reading the newspaper or watching television: not at all 8. Moving or speaking so slowly that other people could have noticed. Or the opposite - being so fidgety or restless that you have been moving around a lot more than usual: not at all 9. Thoughts that you would be better off or of hurting yourself in some way: not at all Total score: 0 Depression Screening Interpretation: Negative Depression Screening Done: Yes 29307 - PHQ-9 Billing: Yes Source: Developed by Drs. Jerod Bang, Анна Jacobson, Horacio Espinosa and colleagues, with an educational maria del carmen from [employer]. Thrive Questionnaire Date Thrive assessed: 05/31/23 I am a: Patient What is your living situation today?: I have a steady place to live Within the past 12 months, did the food you bought not last and you didn't have the money to get more?: Never true Within the past 12 months, did you worry whether your food would run out before you got money to buy more?: Never true Do you have trouble paying for medicines?: No Do you have trouble getting transportation to medical appointments?: Yes Do you have trouble paying your heating and electricity bill?: No Do you have trouble taking care of your child, family member or friend?: No Do you have trouble with day-to-day activities such as bathing, preparing meals, shopping, managing finances, etc.?: No Are you currently unemployed and looking for a job?: No Are you interested in more education?: Yes Please select the resources that you would like help with: Housing/Nursing Home and None Currently or been in a relationship where the following occur: I choose not to answer THRIVE Score: 1 AUDIT C Alcohol Use Questionnaire (AUDIT-C) 1. How often do you have a drink containing alcohol?: Never Total Score: 0 Score Reviewed/Action Taken: No MARLINE-7 AMB Questionnaire MARLINE-7 Date MARLINE - 7 assessed: 05/31/23 Feeling nervous, anxious, or on edge: 0 = Not at all Not being able to stop or control worryin = Not at all Worrying too much about different things: 0 = Not at all Trouble relaxin = Not at all Being so restless that it is hard to sit still: 0 = Not at all Becoming easily annoyed or irritable: 0 = Not at all Feeling afraid as if something awful might happen: 0 = Not at all Total MARLINE-7 score (0-4 normal; 5-9 mild; 10-14 moderate; 15-21 severe): 0 Source: Developed by Drs. Jerod Bang, Анна Jacobson, Horacio Espinosa and colleagues, with an educational maria del carmen from [employer]. MARLINE-7 Assessment Billing MARLINE-7 Assessment Tool: MARLINE-7 Assessment 93069 Review of Systems Const All systems reviewed & are unremarkable except as noted in HPI and below Card Denies chest pain at rest, Denies chest pain with activity, Denies edema, Denies irregular heart rhythm, Denies claudication, Denies dyspnea, Denies dyspnea on exertion, Denies orthopnea, Denies paroxysmal nocturnal dyspnea and Denies slow heart rate Resp Denies cough, Denies dyspnea and Denies dyspnea on exertion GI Denies abdominal pain, Denies change in bowel habits, Denies excessive flatus, Denies nausea and Denies vomiting Denies urinary incontinence, Denies urinary hesitancy and Denies urinary urgency Musc Denies abnormal gait, Denies atrophy, Denies deformity and Denies limited range of motion Skin/Breast Denies bleeding lesions, Denies changing lesions and Denies rash Neuro Denies abnormal gait, Denies behavioral changes and Denies lack of coordination Psych Denies behavioral changes Physical exam (Primary Care) Vital Signs: Last Vital Signs BP 112/60 02/21/24 15:13 BMI result Body Mass Index 35.2 BMI Assessment/Plan discussion: High BMI High, discussed plan: lifestyle, weight reduction, dietary and physical activity Tobacco/Smoking Status: Tobacco use Status Tobacco use date assessed 05/31/23 02/21/24 15:08 Patient Tobacco Use Status Former Tobacco user 02/21/24 15:08 Tobacco use type Cigarette 02/21/24 15:08 e-Cigarette/Vaping Use Never Used 02/21/24 15:08 PHQ-9: PHQ-9 Score PHQ-9: Total score 0 02/21/24 15:28 Depression Screening Interpretation: Negative Thrive Assessment: Date of Thrive Assessment Date Thrive assessed 05/31/23 02/21/24 15:08 Currently or been in a relationship where the following occur: I choose not to answer HENMT Head: Yes normal to inspection, Yes normocephalic and Yes atraumatic Ears: external ears normal Eyes General: appearance normal, both eyes and all related structures Eyelids: Yes eyelids normal Conjunctivae: conjunctivae normal Neck Neck: Yes normal visual inspection and Yes supple Resp Effort & Inspection: normal respiratory effort Auscultation: clear to auscultation bilaterally Cardio Jugular venous distension: no JVD Rate: regular rate Rhythm: regular rhythm Heart sounds: S1 normal heart sound present and S2 normal heart sound present GI Inspection: Yes normal to inspection Palpation (GI): Soft to palpation and nontender Auscultation: normal bowel sounds Skin General skin exam: no rashes or lesions noted Neuro General: no focal motor deficits Extrem General: Yes full ROM Psych Appearance: grossly normal Office Procedures Flu Questionnaire Does the patient have a severe egg allergy?: No Results AMB Hemoglobin A1c AMB Hemoglobin A1c 5.5 % Last Edit by MICHAEL Almonte on 02/21/24 15:28 Immunizations Fluarix Triv [id number] (PF) 45 mcg (15 mcg x 3)/0.5 mL IM syringe Performing Provider: Chen Chase MD [facility] [place] [facility] Documented (not given) by: MICHAEL Almonte on 02/21/24 15:17 Reason Not Given: Patient Refused Results Reviewed Results Reviewed: Laboratory Last Values Hgb A1c (Clinic) 5.5 % (4.0-6.0) 02/21/24 15:07 Coding Level of Care Code Est Pt Prev Care 40-64y(78612) Diagnoses Physical exam Z00.00 Type 2 diabetes mellitus without complication, with long-term current use of insulin E11.9; Z79.4 Diabetes mellitus type: type 2 Diabetes mellitus complication status: without complication Mild recurrent major depression F33.0 Systolic CHF with reduced left ventricular function, NYHA class 2 I50.20 Additional Codes MARLINE-7 Assessment Billing - MARLINE-7 Assessment Tool: MARLINE-7 Assessment 67002 ([id number]) Time Spent (min) 31 Assessment & Plan Assessment & Plan (1) Physical exam: Code(s): Z00.00 - Encounter for general adult medical examination without abnormal findings Category: Medical Plan: Repeat in a year. (2) Diabetes mellitus, with long-term current use of insulin: Code(s): E11.9 - Type 2 diabetes mellitus without complications; Z79.4 - terminal carman (current) use of insulin Category: Medical Qualifiers: Diabetes mellitus type: type 2 Diabetes mellitus complication status: without complication Qualified Code(s): E11.9 - Type 2 diabetes mellitus without complications; Z79.4 - FDC (current) use of insulin Plan: Continue insulin. Increase Ozempic. A1c goal is equal or less than 7%. (3) Mild recurrent major depression: Code(s): F33.0 - Major depressive disorder, recurrent, mild Category: Medical Plan: Continue SSRIs. (4) Systolic CHF with reduced left ventricular function, NYHA class 2: Code(s): I50.20 - Unspecified systolic (congestive) heart failure Category: Medical Plan: Continue Entresto. Orders: Orders Vitamin D 25-OH Total 4 Months E55.9 - Vitamin D deficiency, unspecified Lipid Panel 4 Months E78.5 - Hyperlipidemia, unspecified AMB Hemoglobin A1c Today E11.9 - Type 2 diabetes mellitus without complications, Z79.4 - terminal carman (current) use of insulin Influenza [id number] Immunization Today Z23 - Encounter for immunization Microalbumin, Random (w Creat) 4 Months R80.9 - Proteinuria, unspecified Comprehensive [place]. 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
[2024-02-21 15:13] VITALS: BP 112/60; BMI 35.2
== END 2024-02-21 15:32 | disposition home or self-care (01) ==
LOC: HO.HMCH 14:50
PROVIDERS: PCP Internal Medicine; Visit Provider Internal Medicine
DX: Z00.00 Encounter for general adult medical examination without abnormal findings (principal); E11.9 Type 2 diabetes mellitus without complications; Z79.4 Long term (current) use of insulin; F33.0 Major depressive disorder, recurrent, mild; I50.20 Unspecified systolic (congestive) heart failure

== ENCOUNTER → 2024-02-21 14:50 | Outpatient (BNVA) | payer OTHER, SELFPAY | PROVIDERS: PCP Internal Medicine; Visit Provider Internal Medicine | DX: Z00.01 Encounter for general adult medical examination with abnormal findings (principal); Z23 Encounter for immunization; E11.9 Type 2 diabetes mellitus without complications; F33.0 Major depressive disorder, recurrent, mild; I50.20 Unspecified systolic (congestive) heart failure; Z79.4 Long term (current) use of insulin | CPT/HCPCS: 83036; 90471; 96127; 99396 ==

== ENCOUNTER 2024-08-18 09:25 | Outpatient (REF) | payer OTHER, SELFPAY ==
[2024-08-18 10:57] LABS: Alanine Aminotransferase 45 U/L (0-31); Alkaline Phosphatase 68 U/L (39-117); Anion Gap 10 (12-20); Aspartate Amino Transferase 35 U/L (5-31); Bilirubin Total 0.6 mg/dL (0.0-1.0); Blood Urea Nitrogen 14 mg/dL (9-16); Calcium 9.2 mg/dL (8.4-10.2); Carbon Dioxide 29 mmol/L (22-29); Chloride 107 mmol/L (96-108); Cholesterol 118 mg/dL (<200); Estimated Glomerular Filt Rate > 60; Glucose Fasting 106 mg/dL (60-99); HDL Cholesterol 36 mg/dL (>40); LDL Cholesterol Calculated 59 mg/dL (<100); Potassium 4.3 mmol/L (3.3-5.1); Sodium 142 mmol/L (135-145); Total Protein 7.2 g/dL (6.5-8.0); Triglycerides 116 mg/dL (<150); Vitamin D 25-OH Total 49.4 ng/mL (>30)
[2024-08-18 10:57] LABS: Creatinine Urine 120.13 mg/dL; Microalbum/Creatinine Ratio Ur 4.1 ug/mg cr (<30)
== END 2024-08-18 09:26 | disposition home or self-care (01) ==
LOC: HO.LAB 09:25
PROVIDERS: PCP Internal Medicine; Visit Provider Internal Medicine
DX: E78.5 Hyperlipidemia, unspecified (principal); R80.9 Proteinuria, unspecified; E11.9 Type 2 diabetes mellitus without complications; Z79.4 Long term (current) use of insulin; E55.9 Vitamin D deficiency, unspecified
CPT/HCPCS: 36415; 80053; 80061; 82043; 82306; 82570

== ENCOUNTER 2024-08-25 10:13 | Outpatient (AMB) | payer OTHER, SELFPAY ==
--- NOTE | 2024-08-25 10:18 | MHC.PC.OV ---
Vital Signs 08/25/24 10:19 Height 5 ft Weight 181 lb BMI 35.3 BP 128/76 Blood Pressure Location Lt brachial Position Sitting Intake Visit Reasons: dm Intake Note: Patient here for a follow up DM Grubber Required: No Accompanied by: Daughter Allergies No Known Allergies [No Known Allergies*] Allergy (Verified 08/25/24 10:38) Medication List - Last Reconciled 08/25/24 by Chen Chase MD amlodipine 10 mg PO DAILY 90 days ammonium lactate 12% 1 appl See Protocol topical BID aspirin 81 mg PO DAILY 90 days atorvastatin 80 mg PO BEDTIME 90 days blood sugar diagnostic (FreeStyle Lite Strips) As directed three times a day blood-glucose meter (FreeStyle Lite Meter kit) to test blood glucose 4x/day cholecalciferol (vitamin D3) 25 mcg PO DAILY 30 days cream base no.193 (bulk) (Versatile topical cream) 1 appl topical TID ezetimibe 10 mg PO DAILY flash glucose scanning reader (Conceptua MathStyle Arsalan 2 [place]) As directed flash glucose sensor (FreeStyle Arsalan 2 Sensor kit) As directed fluoxetine 20 mg PO DAILY hydralazine 50 mg PO TID 90 days insulin glargine (Lantus Solostar U-100 Insulin) 32 units (0.32 mL) subcut DAILY 90 days insulin lispro (Admelog SoloStar U-100 Insulin lispro) 4 - 6 units (0.04 - 0.06 mL) subcut TID lancets (TRUEplus Lancets) As directed 4 x/day metformin 1,000 mg PO BID 90 days metoclopramide HCl (Reglan) 5 mg PO QIDACHS naproxen 500 mg PO BID PRN 30 days nitroglycerin 0.4 mg sublingual Q5M pen needle, diabetic (BD Ultra-Fine Rika Pen Needle) As directed four times a day sacubitril-valsartan 49-51 mg (Entresto) 1 tab PO BID semaglutide 1 mg (0.75 mL) subcut QWEEK 30 days semaglutide (Ozempic) 2 mg (0.75 mL) subcut QWEEK 4 weeks sucralfate 3 grams (3 x 1 gram) PO DAILY trazodone 100 mg PO BEDTIME PRN Tobacco use date assessed: 08/25/24 Dental Screening Dental Screen Date: 08/25/24 Did you have a dental visit in the last 12 months?: Yes Did you have a dental problem in the last 6 months where you did not have access to dental care?: No Was dental information given to patient?: Patient has dentist HPI HPI Comments History of Present Illness Details The patient is a 58-year-old female presenting for follow-up on her chronic conditions including hypertension, diabetes mellitus type 2 on long-term current use of insulin, hyperlipidemia and systolic congestive heart failure. She had 3 episodes of back pain about a month ago, occurring while she is sitting and linked to chest tightness at times happening at rest and resolving on its own. She experienced elevated blood pressure during these pain episodes, which have occurred three times over recent weeks. Her heart failure, characterized by a previously recorded ejection fraction of 45% to 50%, is ongoing with regular cardiology follow-ups. The occurrence of recent pain and blood pressure elevation has prompted her scheduled review with plans for a repeat echocardiogram. She denies gaining weight and leg swelling. She has a history of dyslipidemia and hypertension, both currently managed with medications. She regularly monitors these conditions and is concerned about her overall cardiovascular health. Weight fluctuations have been noted, albeit asymmetrically, with more changes on the right side of her abdomen, without significant adverse symptoms since her last cardiac evaluation. [facility] Medical History (Updated 08/25/24 @ 12:03 by Chen Chase MD) snf current use of insulin Morbid obesity Coronary artery disease with angina pectoris CVA (cerebral vascular accident) Brain TIA Osteoarthritis of left shoulder Skin lesion Diarrhea Morbid obesity Diabetes mellitus Alopecia Mild recurrent major depression Systolic CHF with reduced left ventricular function, NYHA class 2 Dizziness Polyarthralgia Left knee pain Anxiety Pulmonary nodule Degenerative joint disease Depression 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 Essential hypertension Dyslipidemia Diarrhea Right hand pain Lower back pain Gastroparesis Coronary artery disease Surgical History Hx of shoulder surgery Hx of colonoscopy History of hernia repair (~09/11/18) History of tubal ligation (~1989) History of open heart surgery (~01/2017) History of coronary artery bypass surgery Family History Father History of diabetes mellitus History of hypertension Mother Parkinson disease Family/Other FH: mental illness Social History Household Members: Family Household Members Other:: daughter Housing: House Alcohol intake: never Patient Tobacco Use Status: Former Tobacco user Tobacco use type: Cigarette e-Cigarette/Vaping Use: Never Used Second Hand Smoke Exposure: No service: No Current occupational status: unemployed Current occupation: rt handed Cognitive needs: No Hearing needs: No Vision needs: Yes Questionnaire PHQ-9 Over the last 2 weeks, how often have you been bothered by any of the following problems? 1. Little interest or pleasure in doing things: not at all 2. Feeling down, depressed, or hopeless: not at all 3. Trouble falling or staying asleep, or sleeping too much: not at all 4. Feeling tired or having little energy: several days 5. Poor appetite or overeating: more than half the days 6. Feeling bad about yourself - or that you are a failure or have let yourself or your family down: not at all 7. Trouble concentrating on things, such as reading the newspaper or watching television: not at all 8. Moving or speaking so slowly that other people could have noticed. Or the opposite - being so fidgety or restless that you have been moving around a lot more than usual: not at all 9. Thoughts that you would be better off or of hurting yourself in some way: not at all Total score: 3 Depression Screening Interpretation: Positive Depression Screening Follow-up: Existing condition and Follow-up Visit Requested Depression Screening Done: Yes 26366 - PHQ-9 Billing: Yes Source: Developed by Drs. Jerod Bang, Анна Jacobson, Horacio Espinosa and colleagues, with an educational maria del carmen from [employer]. Thrive Questionnaire Date Thrive assessed: 08/25/24 I am a: Patient What is your living situation today?: I have a steady place to live Within the past 12 months, did the food you bought not last and you didn't have the money to get more?: I choose not to answer this question Within the past 12 months, did you worry whether your food would run out before you got money to buy more?: I choose not to answer this question Do you have trouble paying for medicines?: No Do you have trouble getting transportation to medical appointments?: No Do you have trouble paying your heating and electricity bill?: No Do you have trouble taking care of your child, family member or friend?: No Do you have trouble with day-to-day activities such as bathing, preparing meals, shopping, managing finances, etc.?: I choose not to answer this question Are you currently unemployed and looking for a job?: No Are you interested in more education?: No Please select the resources that you would like help with: None Currently or been in a relationship where the following occur: I choose not to answer THRIVE Score: 0 AUDIT C Alcohol Use Questionnaire (AUDIT-C) 1. How often do you have a drink containing alcohol?: Never Total Score: 0 Score Reviewed/Action Taken: No MARLINE-7 AMB Questionnaire MARLINE-7 Date MARLINE - 7 assessed: 08/25/24 Feeling nervous, anxious, or on edge: 0 = Not at all Not being able to stop or control worryin = Not at all Worrying too much about different things: 0 = Not at all Trouble relaxin = Not at all Being so restless that it is hard to sit still: 0 = Not at all Becoming easily annoyed or irritable: 0 = Not at all Feeling afraid as if something awful might happen: 0 = Not at all Total MARLINE-7 score (0-4 normal; 5-9 mild; 10-14 moderate; 15-21 severe): 0 Source: Developed by Drs. Jerod Bang, Анна Jacobson, Horacio Espinosa and colleagues, with an educational maria del carmen from [employer]. MARLINE-7 Assessment Billing MARLINE-7 Assessment Tool: MARLINE-7 Assessment 98322 Review of Systems Const All systems reviewed & are unremarkable except as noted in HPI and below ENT Denies change in voice, Denies nasal discharge and Denies sinus pain Card Denies chest pain at rest, Denies chest pain with activity, Denies edema, Denies irregular heart rhythm, Denies claudication, Denies orthopnea, Denies paroxysmal nocturnal dyspnea and Denies slow heart rate Physical exam (Primary Care) Vital Signs: Last Vital Signs BP 128/76 08/25/24 10:19 BMI result Body Mass Index 35.3 BMI Assessment/Plan discussion: High BMI High, discussed plan: lifestyle, weight reduction, dietary and physical activity Tobacco/Smoking Status: Tobacco use Status Tobacco use date assessed 08/25/24 08/25/24 10:27 Patient Tobacco Use Status Former Tobacco user 08/25/24 10:27 Tobacco use type Cigarette 08/25/24 10:27 e-Cigarette/Vaping Use Never Used 08/25/24 10:27 PHQ-9: PHQ-9 Score PHQ-9: Total score 3 08/25/24 11:25 Depression Screening Interpretation: Positive Depression Screening Follow-up: Existing condition and Follow-up Visit Requested Thrive Assessment: Date of Thrive Assessment Date Thrive assessed 08/25/24 08/25/24 10:27 Currently or been in a relationship where the following occur: I choose not to answer Resp Effort & Inspection: normal respiratory effort Auscultation: clear to auscultation bilaterally Cardio Jugular venous distension: no JVD Rate: regular rate Rhythm: regular rhythm Heart sounds: S1 normal heart sound present and S2 normal heart sound present GI Inspection: Yes normal to inspection Palpation (GI): Soft to palpation and nontender Auscultation: normal bowel sounds Extrem General: Yes full ROM Results AMB Hemoglobin A1c AMB Hemoglobin A1c 5.7 % Last Edit by MICHAEL Almonte on 08/25/24 10:29 Results Reviewed Results Reviewed: Laboratory Last Values Hgb A1c (Clinic) 5.7 % (4.0-6.0) 08/25/24 10:16 Coding Level of Care Code Est Pt Level 4 (73073) Complex EM visit Add On G2211 Diagnoses Skin lesion L98.9 Ventral hernia K43.9 Type 2 diabetes mellitus without complication, with long-term current use of insulin E11.9; Z79.4 Diabetes mellitus type: type 2 Diabetes mellitus complication status: without complication Essential hypertension I10 Hyperlipidemia LDL goal <70 E78.5 Systolic CHF with reduced left ventricular function, NYHA class 2 I50.20 Additional Codes MARLINE-7 Assessment Billing - MARLINE-7 Assessment Tool: MARLINE-7 Assessment 17357 ([id number]) PHQ-9 - 35151 - PHQ-9 Billing: Yes ([id number]) Time Spent (min) 24 Assessment & Plan Assessment & Plan (1) Skin lesion: Code(s): L98.9 - Disorder of the skin and subcutaneous tissue, unspecified Category: Medical (2) Ventral hernia: Code(s): K43.9 - Ventral hernia without obstruction or gangrene Category: Medical (3) Diabetes mellitus, with long-term current use of insulin: Code(s): E11.9 - Type 2 diabetes mellitus without complications; Z79.4 - ocean transportation intermediary (current) use of insulin Category: Medical Qualifiers: Diabetes mellitus type: type 2 Diabetes mellitus complication status: without complication Qualified Code(s): E11.9 - Type 2 diabetes mellitus without complications; Z79.4 - ocean transportation intermediary (current) use of insulin (4) Essential hypertension: Code(s): I10 - Essential (primary) hypertension Category: Medical (5) Hyperlipidemia LDL goal <70: Code(s): E78.5 - Hyperlipidemia, unspecified Category: Medical (6) Systolic CHF with reduced left ventricular function, NYHA class 2: Code(s): I50.20 - Unspecified systolic (congestive) heart failure Category: Medical Plan The patient's heart failure requires ongoing cardiology review, focusing on repeat echocardiography to reevaluate heart function. Management of hypertension will continue to be closely monitored, particularly after recent episodes of elevated blood pressure. The patient?s lipid levels are appropriately managed, making continued adherence to atorvastatin essential. Diabetes management comprises sustained use of existing insulin and metformin. Current medication for depression appears effective, and use of trazodone will support sleep. Investigation of back pain, if persistent, may involve further imaging. Advice includes maintaining dietary and exercise routines beneficially influencing cardiovascular health. Patient was informed and verbally consented to the use of an ambient scribe for clinic note documentation during this visit. During the visit, I emphasized the importance of continued monitoring and management of her heart failure, with planned cardiology follow-up and repeat echocardiogram to assess any progression in ejection fraction. I explained treatment options and management strategies for managing elevated blood pressure and ongoing dyslipidemia control. We discussed the benefits of medication adherence across all her health issues, especially in managing diabetes and lipid levels, to prevent potential complications. I also suggested maintaining current strategies for depression, albeit with careful observation of any new psychological symptoms. Addressed the potential requirement for further imaging for back pain, contingent on symptom persistence or change. Recommendations were made for consistent monitoring till next follow-up. Orders: Orders AMB Hemoglobin A1c Today E11.9 - Type 2 diabetes mellitus without complications, Z79.4 - ocean transportation intermediary (current) use of insulin US abdomen limited Today K43.9 - Ventral hernia without obstruction or gangrene Lipid Panel 4 Months E78.5 - Hyperlipidemia, unspecified Microalbumin, Random (w Creat) 4 Months R80.9 - Proteinuria, unspecified Vitamin D 25-OH Total 4 Months E55.9 - Vitamin D deficiency, unspecified CA echo transthoracic complete 2 Months I50.20 - Unspecified systolic (congestive) heart failure Vitamin B12 and Folate 4 Months E53.8 - Deficiency of other specified B group vitamins Comprehensive [place]. Panel Fast 4 Months E11.9 - Type 2 diabetes mellitus without complications, Z79.4 - snf (current) use of insulin Referrals Dermatology Referral L98.9 - Disorder of the skin and subcutaneous tissue, unspecified Medications: Discontinued insulin lispro (Admelog SoloStar U-100 Insulin lispro) Discontinued Reason: Patient Completed Course 4 - 6 units (0.04 - 0.06 mL) subcut TID 15 mL 1RF Patient Instructions: - Continue current medication for diabetes, hypertension, lipids, and mood as prescribed. - Monitor blood pressure regularly and report significant changes. - Follow up with cardiology for assessment including heart function testing. - Maintain lifestyle modifications beneficial for heart and overall health, including exercise. - Attend future appointments for cardiovascular monitoring and potential imaging assessment. - Report if back pain recurs or worsens.
[2024-08-25 10:19] VITALS: BP 128/76; BMI 35.3
== END 2024-08-25 10:53 | disposition home or self-care (01) ==
LOC: HO.HMCH 10:14
PROVIDERS: PCP Internal Medicine; Visit Provider Internal Medicine
DX: E11.69 Type 2 diabetes mellitus with other specified complication (principal); Z79.4 Long term (current) use of insulin; I50.20 Unspecified systolic (congestive) heart failure; L98.9 Disorder of the skin and subcutaneous tissue, unspecified; K43.9 Ventral hernia without obstruction or gangrene; I10 Essential (primary) hypertension; E78.5 Hyperlipidemia, unspecified

== ENCOUNTER → 2024-08-25 10:13 | Outpatient (BNVA) | payer OTHER, SELFPAY | PROVIDERS: PCP Internal Medicine; Visit Provider Internal Medicine | DX: E11.9 Type 2 diabetes mellitus without complications (principal); L98.9 Disorder of the skin and subcutaneous tissue, unspecified; K43.9 Ventral hernia without obstruction or gangrene; I11.0 Hypertensive heart disease with heart failure; I50.20 Unspecified systolic (congestive) heart failure; E78.5 Hyperlipidemia, unspecified; Z79.4 Long term (current) use of insulin | CPT/HCPCS: 83036; 96127; 99212 ==

== ENCOUNTER 2024-10-20 08:21 | Outpatient (REF) | payer OTHER, SELFPAY ==
--- NOTE | ~2024-10-20 | US_ITS ---
CLINICAL HISTORY: K43.9 - Ventral hernia without obstruction or gangrene --- Additional Notes or Special Instructions: right flank Ultrasound of the right flank COMPARISON: None provided. Technique: Real time sonographic imaging, including color-flow imaging, was performed by the altitude chamber technician. Multiple investment representative static images were saved for review. FINDINGS: Liver is parenchyma demonstrates diffusely increased echogenicity. Enlarged with right lobe measuring 20.0 cm. Visualized portions of the right kidney are without evidence of obstruction. Normal right renal corticomedullary differentiation. Right flank soft tissues appears patent. No hernia, mass, fluid collection or foreign body identified within the region of concern. IMPRESSION: 1. No abnormality identified by ultrasound within the soft tissues overlying the right flank. 2. Incidental note of hepatomegaly with hepatic steatosis. This document has been electronically signed by: Saul Gunter MD on 10/21/2024 12:52:41
--- OUTSIDE RECORDS SUMMARY | 2024-10-20 08:27 | XMS_ITS | Clinical Summary ---
Author Organization [facility] [employer] [facility] ity Address [address] [place] [address] Care Team Providers Care Photography Spotter Name Role Phone Unavailable Primary Care Provider Unavailabl e Social History Tobacco Use Types Packs/Day Years Used Date Smoking Tobacco: Never Assessed Comments Unknown Sex and Gender Information Value Date Recorded Sex Assigned at Not on file Legal Sex Female 2:27 AM EST Gender Identity Not on file Sexual Orientation Not on file Plan of Treatment Health Maintenance Due Date Last Done Comments Breast Cancer Screening 1965 DTaP,Tdap,and Td Vaccines (1 - Tdap) 09/13/1982 Cervical Cancer Screening: P ap Smear 09/13/1984 Pneumococcal Vaccine: 50+ Ye ars (1 of 1 - PCV) 09/13/2013 Zoster Vaccines (1 of 2) 09/13/2013 Colorectal Cancer Screening: Colonoscopy 05/22/2023 Depression Screening 05/22/2023 HIV Screening 05/22/2023 Hepatitis C Screening 05/22/2023 Social Influencers of Health Screening 05/22/2023 COVID-19 Vaccine ( - 2023-2 5 season) 2023 Influenza Vaccine (Season Ended) 2024 01/25/20 19 RSV Immunization Adult Patie nts (1 - 1-dose 75+ series) 09/13/2038 HIB Vaccines Aged Out No longer eligi ble based on patient's age to complete this topic HPV Vaccines Aged Out No longer eligi ble based on patient's age to complete this topic Hepatitis A Vaccines Aged Out No long er eligible based on patient's age to complete this topic Hepatitis B Vaccines Aged Out No long er eligible based on patient's age to complete this topic IPV Vaccines Aged Out No longer eligi ble based on patient's age to complete this topic MMR Vaccines Aged Out No longer eligi ble based on patient's age to complete this topic Meningococcal ACWY Vaccine Aged Out N o longer eligible based on patient's age to complete this topic Meningococcal B Vaccine Aged Out No l onger eligible based on patient's age to complete this topic Pneumococcal Vaccine: Pediat rics (0 to 5 Years) and At-Risk Patients (6 to 64 Years) Aged Out No longer eligi ble based on patient's age to complete this topic RSV Immunization Patients Un sean 20 months Aged Out No longer eligible b ased on patient's age to complete this topic Varicella Vaccines Aged Out No longer eligible based on patient's age to complete this topic
--- NOTE | 2024-10-20 09:03 | CA_ITS ---
Transthoracic Echocardiogram Patient (Last, First, Middle): Kori Underwood, Gender: Female Date of : 1965 Age: 59 Procedure Date: 10/20/2024 Procedure Type: Transthoracic Echocardiogram Location: OP Height: 152.4 cm Weight: 82.1 kg BSA: 1.79 m2 Heart Rate: bpm BP: 128 / 76 mmHg Cloth Booker: CARL Referring MD: Chen Chase MD Field Service Rep: David Guevara MD Symptoms: I50.20 - Unspecified systolic (congestive) heart failure Study Quality: Adequate ECG Rhythm: Sinus Conclusions: - 1. Normal LV ejection fraction of 60 65% with mild LVH with impaired relaxation filling pattern and elevated filling pressures 2. Cardiac valvular Dopplers within normal limits 3. Normal measured RV systolic pressure 4. Mildly dilated ascending aorta 3.7 cm 5. Possible small pericardial effusion loculated near the left ventricule Findings Left Ventricle Normal left ventricular size and systolic function. There is mildly increased left ventricular wall thickness. The visually estimated ejection fraction is between 60-65%. Spectral Doppler is indicative of an impaired relaxation filling pattern. Elevated filling pressures. Right Ventricle Normal right ventricular cavity size. Atria The left atrium is normal in size. Interatrial shunt cannot be excluded. The right atrium was not well visualized. Aortic Valve The aortic valve structure and function is likely normal. There is no aortic valve stenosis. There is no aortic valve regurgitation. Mitral Valve There is mild posterior mitral leaflet thickening. There is mild mitral annular calcification. There is trace mitral valve regurgitation. There is no mitral valve stenosis. Pulmonic Valve The pulmonic valve was not well visualized. Tricuspid Valve Likely normal tricuspid valve structure and function. There is trace tricuspid valve regurgitation. The right ventricular systolic pressure is normal. The right ventricular systolic pressure is 20 mmHg. Normal right atrial pressure. There is no evidence of pulmonary hypertension. Great Vessels The pulmonary artery was not well visualized. Small plaque is seen in the sino tubular ridge. Venous The inferior vena cava is normal in size and collapses greater than 50% with inspiration. Pericardium/Pleural There is a small loculated pericardial effusion overlying the left ventricle. Measurements 2D Linear Measurements IVSd: 1.32 0.6-0.9/0.6-1.0 cm LVIDd: 4.28 3.9-5.3/4.2-5.9 cm LVIDd Index: 2.39 2.4-3.2/2.2-3.1 cm/m2 LVIDs: 2.53 2.0-3.6 cm LVPWd: 1.15 0.7-1.1 cm LA Diam: 4.40 2.7-3.8/3.0-4.0 cm LAIDs Index: 2.46 1.5-2.3 cm/m2 LV Mass: 238.31 67-162/88-224 g LV Mass Index: 133.13 43-95/49-115 g/m2 LVOT Diam: 2.10 3.0+(-)1.3 cm 2D Systolic Function EF 4C: 58.20 >55% EF 2C: 64.20 >55% EF BiP: 62.00 >55% Mitral Valve MV Pk E: 1.08 MV PK A: 0.94 MV Decel Time: 193.00 E/A: 1.20 E'Lateral: 7.18 E'Medial: 5.98 E/E' Med: 18.10 E/E' Lat: 15.00 PHT: 56.00 MVA PHT: 3.93 Decel [place]: 5.58 Aortic Valve AoV Pk Ervin: 1.22 AoV Mn Ervin: 0.87 AoV VTI: 0.29 AoV Pk Grad: 6.00 Aov Mn Grad: 3.00 YOSI Cont.VTI: 2.23 LVOT LVOT Pk Ervin: 0.83 LVOT Mn Ervin: 0.56 LVOT VTI: 0.19 LVOT Pk Grad: 3.00 LVOT Mn Grad: 1.00 LVOT Diam: 2.10 LVOT Area: 3.46 Diastolic Function MV Pk E: 1.08 MV Pk A: 0.94 E/A: 1.20 E'Medial: 5.98 E/E' Med: 18.10 E' Laterial: 7.18 E/E' Lat: 15.00 Right Ventricle TAPSE (mm): 20.30 TVS' Ervin: 11.20 Tricuspid Valve TR Pk Ervin: 2.08 TR Pk Grad: 17.00 RA Press: 3.00 RVSP: 20.00 Great Vessels Aorta Sinus of Valsalva: 3.34 2.0-3.[address] [place]: 2.58 1.7-3.4 cm Ao Asc: 3.70 2.1-3.4 cm Updated in Other Vendor System with Status of Final David Guevara MD electronically signed on 10/20/2024 4:30:18 PM with status of Final
== END 2024-10-20 08:22 | disposition home or self-care (01) ==
LOC: HO.US 08:21
PROVIDERS: PCP Internal Medicine; Visit Provider Internal Medicine
DX: K43.9 Ventral hernia without obstruction or gangrene (principal); I50.20 Unspecified systolic (congestive) heart failure
CPT/HCPCS: 76705; 93306

== ENCOUNTER → 2024-10-20 08:23 | Outpatient (BNV) | payer OTHER, SELFPAY | PROVIDERS: PCP Internal Medicine; Visit Provider Radiology Diagnostic Radiology | DX: K76.0 Fatty (change of) liver, not elsewhere classified (principal); R16.0 Hepatomegaly, not elsewhere classified | CPT/HCPCS: 76705 ==

== ENCOUNTER → 2024-10-20 09:03 | Outpatient (BNV) | payer OTHER, SELFPAY | PROVIDERS: PCP Internal Medicine; Visit Provider Internal Medicine Cardiovascular Disease | DX: I50.20 Unspecified systolic (congestive) heart failure (principal); I34.81 Nonrheumatic mitral (valve) annulus calcification; I31.39 Other pericardial effusion (noninflammatory) | CPT/HCPCS: 93306 ==

== ENCOUNTER 2024-10-30 09:57 | Outpatient (REF) | payer OTHER, SELFPAY ==
--- OUTSIDE RECORDS SUMMARY | 2024-10-30 10:33 | XMS_ITS | Clinical Summary ---
Author Organization [facility] [employer] [facility] ity Address [address] [place] [address] Care Team Providers Care Postdoctoral Scholar Name Role Phone Unavailable Primary Care Provider [...] Influencers of Health Screening 05/22/2023 COVID-19 Vaccine (1 - 2023-2 5 season) 2023 Influenza Vaccine (#1) 2024 01/24/2019 RSV Immunization Adult Patie nts (1 - [...]
== END 2024-10-30 09:58 | disposition home or self-care (01) ==
LOC: HO.MAMMO 09:57
PROVIDERS: PCP Internal Medicine; Visit Provider Internal Medicine
DX: Z12.31 Encounter for screening mammogram for malignant neoplasm of breast (principal)
CPT/HCPCS: 77063; 77067

== ENCOUNTER → 2024-10-30 10:15 | Outpatient (BNV) | payer OTHER, SELFPAY | PROVIDERS: PCP Internal Medicine; Visit Provider Radiology Body Imaging | DX: Z12.31 Encounter for screening mammogram for malignant neoplasm of breast (principal) | CPT/HCPCS: 77063; 77067 ==

== ENCOUNTER 2024-11-17 09:33 | Outpatient (AMB) | payer OTHER, SELFPAY ==
--- OUTSIDE RECORDS SUMMARY | 2024-11-17 10:21 | XMS_ITS | Clinical Summary ---
Author Organization [facility] [employer] [facility] ity Address [address] [place] [address] Care Team Providers Care Jewelry Enameler Name Role Phone Unavailable Primary Care Provider [...] 2) 09/13/2013 Colorectal Cancer Screening: Colonoscopy 05/22/2023 HIV Screening 05/22/2023 Hepatitis C Screening 05/22/2023 Social Influencers of Health Screening 05/22/2023 COVID-19 Vaccine (1 - 2023-2 5 season) 2023 Depression Screening 04/23/2024 Influenza Vaccine (#1) 2024 01/24/2019 RSV Immunization [...]
[2024-11-17 10:35] VITALS: BP 122/68; PULSE 80; TEMP 36.7; O2SAT 96; BMI 38.3
--- NOTE | 2024-11-17 10:35 | AM.OFFWIN_ITS ---
Intake Vital Signs 11/17/24 10:35 Height 5 ft Weight 196 lb 6 oz BMI 38.3 BP 122/68 Pulse 80 Pulse Source Pulse Oximeter Temp 98.0 F Temp Source Oral Pulse Oximetry (%) 96 Oxygen Delivery Method Room Air Intake Visit Reasons: EP-rt side stomach pain & swollen Patient Tobacco Use Status: Former Tobacco user Handle Sewer Required: Yes Allergies No Known Allergies (No Known Allergies*) Allergy (Verified 11/17/24 10:39) Medication List - Last Reconciled 11/17/24 by Chantale Hagen PA-C amlodipine 10 mg PO DAILY 90 days ammonium lactate 12% 1 appl See Protocol topical BID aspirin 81 mg PO DAILY 90 days atorvastatin 80 mg PO BEDTIME 90 days blood sugar diagnostic (FreeStyle Lite Strips) As directed three times a day blood-glucose meter (FreeStyle Lite Meter kit) to test blood glucose 4x/day cholecalciferol (vitamin D3) 25 mcg PO DAILY 30 days ezetimibe 10 mg PO DAILY flash glucose scanning reader ([employer] SoftwareStyle Arsalan 2 Tow) As directed flash glucose sensor (FreeStyle Arsalan 2 Sensor kit) As directed hydralazine 50 mg PO TID 90 days insulin glargine (Lantus Solostar U-100 Insulin) 32 units (0.32 mL) subcut DAILY 90 days lancets (TRUEplus Lancets) As directed 4 x/day metformin 1,000 mg PO BID 90 days metoclopramide HCl (Reglan) 5 mg PO QIDACHS nitroglycerin 0.4 mg sublingual Q5M pen needle, diabetic (BD Ultra-Fine Rika Pen Needle) As directed four times a day sacubitril-valsartan 49-51 mg (Entresto) 1 tab PO BID semaglutide 1 mg (0.75 mL) subcut QWEEK 30 days semaglutide (Ozempic) 2 mg (0.75 mL) subcut QWEEK 4 weeks trazodone 100 mg PO BEDTIME PRN HPI HPI Comments History of Present Illness Details History - The patient is a 59-year-old female wi th a past med hx of HTN, DM2, HLD, osteoarthritis, chronic gastritis, gastroparesis, CHF with a small pericardial effusion (has a referral to Cards) presenting with 5 months of abdominal pain which is now constant. - She was diagnosed with fatty liver dis ease after studies on October 20 and reports constant abdominal pain, primarily on the right side, worsening at night. - She describes a sensation of swelling and a palpable mass in the area of pain, with the pain persisting for over five months. - She has been taking acetaminophen for pain relief without success - She has a history of gallbladder remov al and hernia surgery. - she denies any fevers, black or bloody stools, nausea vomiting or diarrhea and her last bowel movement was last night. - he tells me it is not worse after eati ng dairy products or gluten products and it is not worse after meals. Physical Exam General: Cooperative, healthy appearing, comfortable, no acute distress and well developed Orientation: Patient oriented x3 Limitations: No limitations Head: Normal to inspection Ears: Hearing grossly normal bilaterally Nose: Normal External nose present Face and sinus: Normal facial exam Mouth: normal, moist oral mucosa Eyes: Appearance normal, both eyes and all related structures Neck: Normal visual inspection and Yes full ROM Respiratory: Normal respiratory effort and able to speak in complete sentences. GI: normoactive bs, soft, TTP epigastric and RUQ, negative murphys, negative mcburneys Skin: no rashes or lesions noted Neuro: Patient oriented x3 Extremities: moving all extremities normally PFSH Medical History CHCF current use of insulin Morbid obesity Coronary artery disease with angina pectoris CVA (cerebral vascular accident) Brain TIA Osteoarthritis of left shoulder Skin lesion Diarrhea Morbid obesity Diabetes mellitus Alopecia Mild recurrent major depression Systolic CHF with reduced left ventricular function, NYHA class 2 Dizziness Polyarthralgia Left knee pain Anxiety Pulmonary nodule Degenerative joint disease Depression 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 Essential hypertension Dyslipidemia Diarrhea Right hand pain Lower back pain Gastroparesis Coronary artery disease Surgical History Hx of shoulder surgery Hx of colonoscopy History of hernia repair (~09/11/18) History of tubal ligation (~1989) History of open heart surgery (~01/2017) History of coronary artery bypass surgery Family History Father History of diabetes mellitus History of hypertension Mother Parkinson disease Family/Other FH: mental illness Social History Household Members: Family Household Members Other:: daughter Housing: House Alcohol intake: never Patient Tobacco Use Status: Former Tobacco user Tobacco use type: Cigarette e-Cigarette/Vaping Use: Never Used Second Hand Smoke Exposure: No service: No Current occupational status: unemployed Current occupation: rt handed Cognitive needs: No Hearing needs: No Vision needs: Yes Review of Systems Const All systems reviewed & are unremarkable except as noted in HPI and below Physical Exam Vital Signs: Last Vital Signs Temp 98.0 F 11/17/24 10:35 Pulse 80 11/17/24 10:35 BP 122/68 11/17/24 10:35 Pulse Ox 96 11/17/24 10:35 Oxygen Delivery Method Room Air 11/17/24 10:35 BMI result Body Mass Index 38.3 Assessment & Plan Assessment & Plan (1) Epigastric abdominal pain: Code(s): R10.13 - Epigastric pain Plan: Plan Patient was informed and verbally consented to the use of an ambient scribe for clinic note documentation during this visit Abdominal Pain - VSS and patient is well-appearing however as she is telling me her abdominal pain is now constant and worse when she lays down and she has a history of an epigastric hernia repair, she should go to the emergency department to rule out a strangulated or incarcerated hernia vs other abdominal pathology. Her last colonoscopy was normal and that was in 2018, per patient report. She does not have a gallbladder and has a recent abdominal ultrasound showing fatty liver but this should not cause her pain. She also has a small pericardial effusion and has a referral to Interventional Cardiology. Called [facility] ED with elli, spoke with Stacie 11:30AM. Possible Small Pericardial Effusion - Cardiology evaluation is recommended to assess the pericardial effusion. (2) RUQ abdominal pain: Code(s): R10.11 - Right upper quadrant pain Plan: as above Coding Level of Care Code Est Pt Level 5 (83319) Diagnoses Epigastric abdominal pain R10.13 RUQ abdominal pain R10.11
== END 2024-11-17 11:55 | disposition home or self-care (01) ==
PROVIDERS: PCP Internal Medicine; Visit Provider Physician Assistant
DX: R10.13 Epigastric pain (principal); R10.11 Right upper quadrant pain

== ENCOUNTER → 2024-11-17 09:33 | Outpatient (BNVA) | payer OTHER, SELFPAY | PROVIDERS: PCP Internal Medicine; Visit Provider Physician Assistant | DX: R10.13 Epigastric pain (principal); R10.11 Right upper quadrant pain; E11.9 Type 2 diabetes mellitus without complications; E78.5 Hyperlipidemia, unspecified; I11.0 Hypertensive heart disease with heart failure; I50.9 Heart failure, unspecified | CPT/HCPCS: 99212 ==

== ENCOUNTER 2024-11-17 13:19 | Emergency (ER) | payer OTHER, SELFPAY ==
--- NOTE | ~2024-11-17 | CT_ITS ---
CLINICAL HISTORY: RUQ, RLQ, epigastric tender R O biliary , appendic CT abdomen and pelvis with contrast Comparison: None available Findings: No consolidation at the lung bases. Cardiomegaly. Status post cholecystectomy. Underdistended bladder. Calcification in the liver. The liver measures within normal limits for size and attenuation. No intrahepatic biliary ductal dilatation. The common bile duct measures within normal limits for patient's status post cholecystectomy, measuring up to 7 mm. No hydronephrosis or nephrolithiasis. No focal decreased enhancement of the kidneys. Interdigitating fat in the tail of the pancreas.The other solid organs are unremarkable. There are few loops of thick-walled jejunum which are dilated, measuring up to 3.0 cm. There is a discrete transition point. A normal appendix is identified. No aneurysm. Mild calcified atherosclerotic disease. Lymph nodes in the theodore hepatis measure up to 0.3 cm in short axis. Infiltration of the mesentery. No ascites. No acute osseous abnormality. Impression: Status post cholecystectomy. No intrahepatic or extrahepatic biliary ductal dilatation. Normal appendix. There are few loops of thick-walled jejunum which are dilated without a discrete transition point. This may indicate enteritis with associated mild ileus. 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 This document has been electronically signed by: Alethea Middleton MD on 11/18/2024 01:13:20
[2024-11-17 14:07] VITALS: BP 125/60; PULSE 84; RESP 16; TEMP 36.1; O2SAT 95; BMI 38.3
--- NOTE | 2024-11-17 14:07 | ED_ITS ---
HPI - General Adult General Chief complaint: Abdominal Pain Stated complaint: blotted abd Time Seen by Provider: 11/17/24 20:03 Source: patient Mode of arrival: ambulatory Limitations: language barrier (Surinamese speaking only, [facility] cloth stretcher used) History of Present Illness ED Provider: Dr. Kirill Saldivar HPI narrative: 59-year-old female with a history of obesity, coronary artery disease, CVA, diabetes mellitus, hypertension, hyperlipidemia, gastroparesis, hernia repair, bilateral tubal ligation, CABG who presents emergency department for evaluation of right-sided abdominal pain for 5 months. The patient states that she has had a constant, pressure-like pain in the right side of her abdomen for 5 months. The pain is gotten progressively worse. She states that today the pain was 8/10. She did see your PCP 2 months prior and had a right-sided ultrasound on 10/21/2024 that revealed no significant abnormalities. The patient states that the pain does not change with movement, eating, bowel movements, urination. She denied nausea, vomiting or diarrhea. She denied frequency, urgency or dysuria. She does feel bloated. She states she has gained 15 lb over the last 5 months. She has noted night sweats. Related Data Home Medications ?Medication ?Instructions ?Recorded ?Confirmed sacubitril 49 mg-valsartan 51 mg 1 tab PO BID 05/30/21 11/17/24 tablet (Entresto) ammonium lactate 12 % topical cream 1 appl topical BID 05/29/22 11/17/24 Previous Rx's ?Medication ?Instructions ?Recorded trazodone 100 mg tablet 100 mg PO BEDTIME PRN for in somnia 03/09/20 #30 tabs blood-glucose meter (FreeStyle #1 ea 05/30/21 Lite Meter kit) lancets 33 gauge (TRUEplus Lancets) #200 ea 05/30/21 pen needle, diabetic 32 gauge x #125 05/30/21 (BD Ultra-Fine Rika Pen Needle) flash glucose scanning reader #1 11/22/22 (FreeStyle Arsalan 2 Wayne) flash glucose sensor (FreeStyle #2 ea 11/22/22 Arsalan 2 Sensor kit) semaglutide 1 mg/dose (4 mg/3 mL) 1 mg (0.75 mL) subcu t QWEEK 30 08/20/23 subcutaneous pen injector days #3.75 mL blood sugar diagnostic (FreeStyle #100 ea 11/20/23 Lite Strips) ezetimibe 10 mg tablet 10 mg PO DAILY #90 tabs 04/24 07/15 semaglutide 2 mg/dose (8 mg/3 mL) 2 mg (0.75 mL) subcu t QWEEK 4 05/16/24 subcutaneous pen injector (Ozempic) weeks #3 mL metformin 1,000 mg tablet 1,000 mg PO BID 90 days #180 tabs 06/04/24 insulin glargine 100 unit/mL (3 32 unit (0.32 mL) subc ut DAILY 90 06/25/24 mL) subcutaneous pen (Lantus days #28.8 mL Solostar U-100 Insulin) amlodipine 10 mg tablet 10 mg PO DAILY 90 days #90 t abs 08/16/24 aspirin 81 mg tablet,delayed 81 mg PO DAILY 90 days #9 0 tabs 08/16/24 release atorvastatin 80 mg tablet 80 mg PO BEDTIME 90 days #90 tabs 08/16/24 metoclopramide HCl 5 mg tablet 5 mg PO QIDACHS #120 ta bs 08/26/24 (Reglan) nitroglycerin 0.4 mg sublingual 0.4 mg sublingual Q5M for angina 09/22/24 tablet #25 tabs cholecalciferol (vitamin D3) 25 25 mcg PO DAILY 30 day s #30 caps 10/21/24 mcg (1,000 unit) capsule hydralazine 50 mg tablet 50 mg PO TID 90 days #270 ta bs 11/12/24 aluminum hydrox-magnesium carb 254 10 ml PO QID PRN dy spepsia #355 mL 11/18/24 mg-237.5 mg/5 mL oral suspension (Gaviscon Extra Strength) omeprazole 20 mg capsule,delayed 20 mg PO DAILY 30 day s #30 caps 11/18/24 release Allergies Allergy/AdvReac Type Severity Reaction Status Date / Time No Known Allergies (No Known Allergy Verified 11/17/24 14:08 Allergies*) Review of Systems 2 Review of Systems: Yes all other systems are reviewed and are negative PMFSH Past Medical History Medical History long-term current use of insulin Morbid obesity Coronary artery disease with angina pectoris CVA (cerebral vascular accident) Brain TIA Osteoarthritis of left shoulder Skin lesion Diarrhea Morbid obesity Diabetes mellitus Alopecia Mild recurrent major depression Systolic CHF with reduced left ventricular function, NYHA class 2 Dizziness Polyarthralgia Left knee pain Anxiety Pulmonary nodule Degenerative joint disease Depression 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 Essential hypertension Dyslipidemia Diarrhea Right hand pain Lower back pain Gastroparesis Coronary artery disease Surgical History Hx of shoulder surgery Hx of colonoscopy History of hernia repair (~09/11/18) History of tubal ligation (~1989) History of open heart surgery (~01/2017) History of coronary artery bypass surgery Family History Family History Father History of diabetes mellitus History of hypertension Mother Parkinson disease Family/Other FH: mental illness Social History Social History Household Members: Family Household Members Other:: daughter Housing: House Alcohol intake: never Patient Tobacco Use Status: Former Tobacco user Tobacco use type: Cigarette Smoked in Last 30 Days: No e-Cigarette/Vaping Use: Never Used Second Hand Smoke Exposure: No Use of substances other than those prescribed or required for medical reasons: No Advance Directives: No Advance Directives Information Provided: No Patient : No service: No Current occupational status: unemployed Current occupation: rt handed Cognitive needs: No Hearing needs: No Vision needs: Yes Physical Exam ED Vital Signs: Vital Signs - 24 hr 11/17/24 14:07 11/17/24 19:47 11/17/24 22:00 Temperature 97 F 97.8 F 98.1 F Pulse Rate 84 73 66 Respiratory Rate 16 16 16 Blood Pressure 125/60 145/75 H 132/68 Pulse Oximetry 95 100 96 Oxygen Delivery Method Room Air Room Air Room Air 11/17/24 23:52 Temperature 98.3 F Pulse Rate 66 Respiratory Rate 18 Blood Pressure 136/72 Pulse Oximetry 94 Oxygen Delivery Method Room Air BMI result Body Mass Index 38.3 Vital signs were normal Exam: General: Awake, alert in no distress Head: Normocephalic, atraumatic EENT: PERRL, Lids normal, sclera normal, conjunctiva normal, nose normal , ears normal, throat without erythema or exudates Neck: Supple, no adenopathy Lung: breath sounds symmetric, no wheezing, rales or rhonchi Chest: symmetric movement, nontender Heart: regular rate and rhythm, normal S1, S2 no murmurs or rubs Abdomen: soft, moderate epigastric, RUQ, RLQ, negative Hernandez sign, normoactive bowel sounds, no rebound, no voluntary or involuntary guarding Back: no vertebral tenderness, no CVAT Extremities: no deformities, moves all extremities symmetrically Neuro: Awake, alert, oriented, normal speech, cranial nerves intact, moves all extremities symmetrically Psych: Pleasant, cooperative Course Course Course Narrative: This is a rapid medical exam performed by Ayush Rose NP: Additional HPI, ROS, PE not included below will be deferred to primary provider. Patient is a 59-year-old Surinamese-speaking female with history of ventral hernia, pericardial effusion DM, HTN, HLD, CHF, polyarthralgia, gastroparesis presenting to the emergency department with complaint of right sided abd pain for the past 5-[address] Gan for this, was referred to cardiology. Diagnosed with hepatic steatosis. Complains of ongoing pain. Referred to ED today from [place] walk-in. Plan: Labs, UA, will defer imaging to primary provider Medications Administered Discontinued Medications Generic Name Dose Route Start Last Admin Trade Name Freq PRN Reason Stop Dose Admin Sodium Chloride 1,000 mls @ 999 mls/hr 11/17/24 20:51 11/18/24 00:50 Ns IV 11/17/24 21:51 Infused .Q1H1M STA Infusion Iohexol 100 ml 11/18/24 00:03 11/18/24 00:06 Iohexol 350 Mg/Ml 100 Ml Infus..Btl IV 11/18/24 00:04 100 ml ONCE ONE Administration Ketorolac Tromethamine 15 mg 11/17/24 20:51 11/17/24 21:52 Ketorolac Tromethamine 15 Mg/Ml Vial IVPUSH 11/17/24 20:52 15 mg ONCE STA Administration Medical Decision Making Medical Decision Making [facility] Narrative: 59-year-old female with a history of obesity, coronary artery disease, CVA, diabetes mellitus, hypertension, hyperlipidemia, gastroparesis, hernia repair, bilateral tubal ligation, CABG who presents emergency department for evaluation of right-sided abdominal pain for 5 months. The patient states that she has had a constant, pressure-like pain in the right side of her abdomen for 5 months. The pain is gotten progressively worse. She states that today the pain was 8/10. She did see your PCP 2 months prior and had a right-sided ultrasound on 10/21/2024 that revealed no significant abnormalities. The patient states that the pain does not change with movement, eating, bowel movements, urination. She denied nausea, vomiting or diarrhea. She denied frequency, urgency or dysuria. She does feel bloated. She states she has gained 15 lb over the last 5 months. She has noted night sweats. Vital signs were normal. Exam revealed epigastric, RUQ, RLQ tenderness. Differential diagnosis: ?Includes but is not limited to biliary disease, appendicitis, diverticulitis, gastritis, peptic ulcer disease, malignancy, anemia, electrolyte abnormalities Course: 20:56 My interpretation patient's laboratory evaluation is as follows: CBC was normal here CMP was normal. PT INR were normal. Lipase was normal. Given the patient's abdominal tenderness in the severity of the pain, I did order a CT scan of the abdomen pelvis with IV contrast. Patient's pain was treated with Toradol 15 mg IV. 02:[address] scan of the abdomen pelvis did not reveal a clear cause for her pain. The daughter states the patient has been taking an herbal home random daily which may be contributing to her abdominal discomfort. Given her significant epigastric tenderness I suspect that the patient has gastritis and I did discuss this with the patient and the patient's family. Patient was started on omeprazole 20 mg daily and extra-strength Gaviscon 10 cc before meals and at bedtime. She was advised to take Tylenol for pain as well. She was given printed and verbal instructions and discharged home. Admission/Observation Consideration of admission/observation: Escalation of care including admission/observation considered (Yes) Lab Data 11/17/24 14:34 11/17/24 14:35 Labs: Lab Results 11/17/24 11/17/24 11/17/24 Range/Units 14:34 14:35 21:56 WBC 8.9 (4.8-10.8) X10*3/uL RBC 4.82 (4.20-5.50) X10*6/uL Hgb 13.1 (12.0-16.0) g/dl Hct 39.3 (37.0-47.0) % MCV 81.5 (80.0-98.0) fL MCH 27.2 (27.0-33.0) pg MCHC 33.3 (31.0-35.0) g/dl RDW 13.8 (11.0-16.0) % Plt Count 229 (160-400) X10*3/uL MPV 9.0 L (9.4-12.3) fL Immature Gran % (Auto) 0.2 (0.0-0.4) % Neut % (Auto) 53.9 (45-73) % Lymph % (Auto) 35.8 (20-40) % Shoshone % (Auto) 7.5 (2-11) % Eos % (Auto) 2.2 (0-4) % Baso % (Auto) 0.4 (0-2) % Lymph # (Auto) 3.2 (1.2-4.9) X10*3/uL Shoshone # (Auto) 0.7 (0.1-1.2) X10*3/uL Eos # (Auto) 0.2 (0.0-0.4) X10*3/uL Baso # (Auto) 0.0 (0.0-0.2) X10*3/uL Abs Immat Gran (auto) 0.02 (0.00-0.03) X10*3/uL Absolute Neuts (auto) 4.8 (2.0-8.3) x10*3/uL Absolute Nucleated RBC 0.000 (0.0-0.012) X10*3/uL Nucleated RBC % (auto) 0.0 (0.0-0.2) /100WBC PT 11.4 (10.9-12.4) SEC INR 1.0 (0.9-1.1) Sodium 141 (135-145) mmol/L Potassium 4.7 (3.3-5.1) mmol/L Chloride 108 (96-108) mmol/L Carbon Dioxide 24 (22-29) mmol/L Anion Gap 14 (12-20) BUN 18 H (9-16) mg/dL Creatinine 0.88 (0.5-1.4) mg/dL Estim Creat Clear Calc 66.6 Estimated GFR > 60 Random Glucose 106 (60-115) mg/dL Calcium 9.4 (8.4-10.2) mg/dL Total Bilirubin 1.0 (0.0-1.0) mg/dL AST 23 (5-31) U/L ALT 26 (0-31) U/L Alkaline Phosphatase 76 (39-117) U/L Total Protein 7.5 (6.5-8.0) g/dL Albumin 4.4 (3.5-5.0) g/dL Lipase 30 (8-78) U/L Urine Color Yellow Urine Appearance Clear Urine pH 7.5 (5.0-9.0) Ur Specific Marion 1.015 (1.005-1.025) Urine Protein Negative (Neg-Trace) mg/dL Urine Glucose (UA) Negative (Negative) mg/dL Urine Ketones Negative (Negative) mg/dL Urine Blood Negative (Negative) Urine Nitrite Negative (Negative) Ur Leukocyte Esterase Negative (Negative) Radiology Impression Discussion of test interpretation with radiology: I have reviewed the radiologist's reading. Radiologist Impression: CT abdomen and pelvis with contrast Comparison: None available Findings: No consolidation at the lung bases. Cardiomegaly. Status post cholecystectomy. Underdistended bladder. Calcification in the liver. The liver measures within normal limits for size and attenuation. No intrahepatic biliary ductal dilatation. The common bile duct measures within normal limits for patient's status post cholecystectomy, measuring up to 7 mm. No hydronephrosis or nephrolithiasis. No focal decreased enhancement of the kidneys. Interdigitating fat in the tail of the pancreas.The other solid organs are unremarkable. There are few loops of thick-walled jejunum which are dilated, measuring up to 3.0 cm. There is a discrete transition point. A normal appendix is identified. No aneurysm. Mild calcified atherosclerotic disease. Lymph nodes in the theodore hepatis measure up to 0.3 cm in short axis. Infiltration of the mesentery. No ascites. No acute osseous abnormality. Impression: Status post cholecystectomy. No intrahepatic or extrahepatic biliary ductal dilatation. Normal appendix. There are few loops of thick-walled jejunum which are dilated without a discrete transition point. This may indicate enteritis with associated mild ileus. 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 This document has been electronically signed by: Alethea Middleton MD on 11/18/2024 01:13:20 Chronic Conditions Patient?s care impacted by: Diabetes, Hypertension and Other (Hyperlipidemia, coronary artery disease) Discharge Plan Discharge Clinical Impression: Abdominal pain, Gastritis Patient Disposition: Home, Self-Care Instructions: Gastritis (ED) Additional Instructions: Your blood work was unremarkable. Your CT scan of the abdomen pelvis with IV contrast did not reveal a clear cause for your pain. Your symptoms and exam are consistent with inflammation of your stomach (gastritis). Take Prilosec (omeprazole) 20 mg pills, 1 pill once a day for 1 month. ?This medication shuts off your acid production and lets the inflammation in your stomach and esophagus heal. Take extra-strength Gaviscon 10 mL (2 tsp) 4 times a day as needed for abdominal pain. Take Tylenol (acetaminophen) 500 mg pills, 2 pills every 6 hours as needed for pain or fever. Stop taking your home verbal remedy for 1 month to see if this improves her pain. Follow-up with your doctor in 2 days. Please return to the emergency department if your symptoms get worse or if you develop any symptoms that are concerning to you. Prescriptions: New omeprazole 20 mg capsule,delayed release(DR/EC) 20 mg PO DAILY 30 Days Qty: 30 0RF Gaviscon Extra Strength 254-237.5 mg/5 mL suspension 10 ml PO QID PRN (Reason: dyspepsia) Qty: 355 0RF No Action trazodone 100 mg tablet 100 mg PO BEDTIME PRN (Reason: for insomnia) Qty: 30 0RF (DME) FreeStyle Arsalan 2 Wayne Misc See Rx Instructions .Route Qty: 1 0RF Rx Instructions: As directed (DME) FreeStyle Arsalan 2 Sensor Kit See Rx Instructions .Route Qty: 2 11RF Rx Instructions: As directed semaglutide 1 mg/dose (4 mg/3 mL) pen injector 1 mg subcut QWEEK 30 Days Qty: 3.75 6RF (DME) FreeStyle Lite Strips Strip See Rx Instructions .ROUTE .MEDSUPPLY Qty: 100 11RF Rx Instructions: As directed three times a day ezetimibe 10 mg tablet 10 mg PO DAILY Qty: 90 2RF Ozempic 2 mg/dose (8 mg/3 mL) pen injector 2 mg subcut QWEEK 28 Days Qty: 3 6RF metformin 1,000 mg tablet 1,000 mg PO BID 90 Days Qty: 180 1RF insulin glargine [Lantus Solostar U-100 Insulin] 100 unit/mL (3 mL) insulin pen 32 unit subcut DAILY 90 Days Qty: 28.8 3RF aspirin 81 mg tablet,delayed release (DR/EC) 81 mg PO DAILY 90 Days Qty: 90 1RF amlodipine 10 mg tablet 10 mg PO DAILY 90 Days Qty: 90 1RF atorvastatin 80 mg tablet 80 mg PO BEDTIME 90 Days Qty: 90 1RF metoclopramide HCl [Reglan] 5 mg tablet 5 mg PO QIDACHS Qty: 120 6RF Rx Instructions: Will monitor for any interaction with prozac nitroglycerin 0.4 mg tablet, sublingual 0.4 mg sublingual Q5M Qty: 25 0RF cholecalciferol (vitamin D3) 25 mcg (1,000 unit) capsule 25 mcg PO DAILY 30 Days Qty: 30 3RF hydralazine 50 mg tablet 50 mg PO TID 90 Days Qty: 270 1RF ammonium lactate 12 % cream 1 appl topical BID Protocol: Apply to: Apply to: feet Entresto 49-51 mg tablet 1 tab PO BID (DME) pen needle, diabetic [BD Ultra-Fine Rika Pen Needle] 32 gauge x /32 needle See Rx Instructions .ROUTE .MEDSUPPLY Qty: 125 11RF Rx Instructions: As directed four times a day (DME) blood-glucose meter [FreeStyle Lite Meter] Kit See Rx Instructions .ROUTE .MEDSUPPLY Qty: 1 0RF Rx Instructions: to test blood glucose 4x/day (DME) lancets [TRUEplus Lancets] 33 gauge misc See Rx Instructions .ROUTE .MEDSUPPLY Qty: 200 8RF Rx Instructions: As directed 4 x/day Print Language: Surinamese
[2024-11-17 14:38] LABS: MANUAL DIFF FLAG NO
[2024-11-17 14:43] LABS: Hematocrit 39.3 % (37.0-47.0); Hemoglobin 13.1 g/dl (12.0-16.0); Imm Gran Abs Auto 0.02 X10*3/uL (0.00-0.03); Imm Gran Pct Auto 0.2 % (0.0-0.4); Lymphocytes Absolute Auto 3.2 X10*3/uL (1.2-4.9); Mean Corpuscular HGB Conc 33.3 g/dl (31.0-35.0); Mean Corpuscular Hemoglobin 27.2 pg (27.0-33.0); Mean Corpuscular Volume 81.5 fL (80.0-98.0); NRBC Abs Auto 0.000 X10*3/uL (0.0-0.012); NRBC Pct Auto 0.0 /100WBC (0.0-0.2); Platelet Count 229 X10*3/uL (160-400); Red Blood Count 4.82 X10*6/uL (4.20-5.50); White Blood Count 8.9 X10*3/uL (4.8-10.8)
[2024-11-17 14:58] LABS: Alanine Aminotransferase 26 U/L (0-31); Albumin Level 4.4 g/dL (3.5-5.0); Alkaline Phosphatase 76 U/L (39-117); Anion Gap 14 (12-20); Aspartate Amino Transferase 23 U/L (5-31); Blood Urea Nitrogen 18 mg/dL (9-16); Calcium 9.4 mg/dL (8.4-10.2); Carbon Dioxide 24 mmol/L (22-29); Chloride 108 mmol/L (96-108); Creatinine Clr Calc Pharmacy 66.6; Estimated Glomerular Filt Rate > 60; Lipase 30 U/L (8-78); Potassium 4.7 mmol/L (3.3-5.1); Sodium 141 mmol/L (135-145); Total Protein 7.5 g/dL (6.5-8.0)
[2024-11-17 15:08] LABS: INTERNATIONAL NORM RATIO 1.0 (0.9-1.1); Prothrombin Time 11.4 SEC (10.9-12.4)
[2024-11-17 19:47] VITALS: BP 145/75; PULSE 73; RESP 16; TEMP 36.6; O2SAT 100
--- OUTSIDE RECORDS SUMMARY | 2024-11-17 19:52 | XMS_ITS | Clinical Summary ---
Author Organization [employer] Located [facility] ity Address [address] [place] [address] Care Team Providers Care Pillowcase Folder Name Role Phone Unavailable Primary Care Provider [...]
[2024-11-17 22:00] VITALS: BP 132/68; PULSE 66; RESP 16; TEMP 36.7; O2SAT 96
[2024-11-17 22:03] LABS: Appearance Urine Clear; Glucose Urine UA Negative (Negative); PH 7.5 (5.0-9.0); Specific Gravity - Urine 1.015 (1.005-1.025)
[2024-11-17 23:52] VITALS: BP 136/72; PULSE 66; RESP 18; TEMP 36.8; O2SAT 94
[2024-11-18] MEDS: iohexoL 350 MG/ML 100 ML INFUS..BTL IV (00:06)
[2024-11-18 02:08] VITALS: BP 156/77; PULSE 71; RESP 15; TEMP 36.4; O2SAT 95
[2024-11-18 02:30] VITALS: BP 156/77; PULSE 71; RESP 15; TEMP 36.4; O2SAT 95
== END 2024-11-18 03:21 | disposition home or self-care (01) ==
PROVIDERS: Registered Nurse Emergency; Emergency Provider Emergency Medicine Emergency Medical Services; PCP Internal Medicine
DX: R10.11 Right upper quadrant pain (principal); R10.13 Epigastric pain; R10.31 Right lower quadrant pain; K29.70 Gastritis, unspecified, without bleeding; E11.9 Type 2 diabetes mellitus without complications; I10 Essential (primary) hypertension; E78.5 Hyperlipidemia, unspecified; E66.9 Obesity, unspecified; Z68.38 Body mass index [BMI] 38.0-38.9, adult; Z79.4 Long term (current) use of insulin; Z79.82 Long term (current) use of aspirin; Z79.899 Other long term (current) drug therapy; Z79.02 Long term (current) use of antithrombotics/antiplatelets
CPT/HCPCS: 36415; 74177; 80053; 81003; 83690; 85025; 85610; 96361; 96374; 99284; J1885; Q9967

== ENCOUNTER → 2024-11-17 20:51 | Outpatient (BNV) | payer OTHER, SELFPAY | PROVIDERS: Emergency Provider Emergency Medicine Emergency Medical Services; PCP Internal Medicine; Visit Provider Radiology Diagnostic Radiology | DX: R10.11 Right upper quadrant pain (principal) | CPT/HCPCS: 74177 ==

== ENCOUNTER 2024-11-28 07:26 | Outpatient (AMB) | payer OTHER, SELFPAY ==
--- NOTE | 2024-11-28 07:29 | MHC.PC.OV ---
Vital Signs 11/28/24 07:30 Height 5 ft Weight 196 lb BMI 38.3 BP 124/82 Blood Pressure Location Lt brachial Position Sitting Pulse 72 Pulse Source Pulse Oximeter Pulse Oximetry (%) 96 Oxygen Delivery Method Room Air Intake Visit Reasons: [facility] 11/17 ABD pain Care Team Coordinator Scheduler Required: Yes Care Team Coordinator Scheduler Language: Divehi Allergies No Known Allergies (No Known Allergies*) Allergy (Verified 11/28/24 07:30) Tobacco use date assessed: 08/25/24 Dental Screening Dental Screen Date: 08/25/24 HPI HPI Comments History of Present Illness Details 59 Y/o Female patient who presents to the clinic today for EDF. Pmhx significant for obesity, coronary artery disease, CVA, diabetes mellitus, hypertension, hyperlipidemia, gastroparesis, hernia repair, bilateral tubal ligation, and CABG. She was admitted at [facility] on 11/17 for an evaluation and treatment of Abdominal pain/Gastritis. CT Abdomen was negative. Today she reports feeling much better on medications. She would like a referral to GI. 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 Morbid obesity Coronary artery disease with angina pectoris CVA (cerebral vascular accident) Brain TIA Osteoarthritis of left shoulder Skin lesion Diarrhea Morbid obesity Diabetes mellitus Alopecia Mild recurrent major depression Systolic CHF with reduced left ventricular function, NYHA class 2 Dizziness Polyarthralgia Left knee pain Anxiety Pulmonary nodule Degenerative joint disease Depression 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 Essential hypertension Dyslipidemia Diarrhea Right hand pain Lower back pain Gastroparesis Coronary artery disease Surgical History Hx of shoulder surgery Hx of colonoscopy History of hernia repair (~09/11/18) History of tubal ligation (~1989) History of open heart surgery (~01/2017) History of coronary artery bypass surgery Family History Father History of diabetes mellitus History of hypertension Mother Parkinson disease Family/Other FH: mental illness Social History Household Members: Family Household Members Other:: daughter Housing: House Alcohol intake: never Patient Tobacco Use Status: Former Tobacco user Tobacco use type: Cigarette e-Cigarette/Vaping Use: Never Used Second Hand Smoke Exposure: No service: No Current occupational status: unemployed Current occupation: rt handed Cognitive needs: No Hearing needs: No Vision needs: Yes Questionnaire Thrive Questionnaire Date Thrive assessed: 08/25/24 I am a: Patient What is your living situation today?: I have a steady place to live Within the past 12 months, did the food you bought not last and you didn't have the money to get more?: I choose not to answer this question Within the past 12 months, did you worry whether your food would run out before you got money to buy more?: I choose not to answer this question Do you have trouble paying for medicines?: No Do you have trouble getting transportation to medical appointments?: No Do you have trouble paying your heating and electricity bill?: No Do you have trouble taking care of your child, family member or friend?: No Do you have trouble with day-to-day activities such as bathing, preparing meals, shopping, managing finances, etc.?: I choose not to answer this question Are you currently unemployed and looking for a job?: No Are you interested in more education?: No Please select the resources that you would like help with: None Currently or been in a relationship where the following occur: I choose not to answer THRIVE Score: 0 MARLINE-7 AMB Questionnaire MARLINE-7 Date MARLINE - 7 assessed: 08/25/24 Source: Developed by Drs. Jerod Bang, Анна Jacobson, Horacio Espinosa and colleagues, with an educational maria del carmen from [employer]. Review of Systems Const All systems reviewed & are unremarkable except as noted in HPI and below Physical exam (Primary Care) Vital Signs: Last Vital Signs Pulse 72 11/28/24 07:30 BP 124/82 11/28/24 07:30 Pulse Ox 96 11/28/24 07:30 Oxygen Delivery Method Room Air 11/28/24 07:30 BMI result Body Mass Index 38.3 Tobacco/Smoking Status: Tobacco use Status Tobacco use date assessed 08/25/24 11/28/24 07:34 Patient Tobacco Use Status Former Tobacco user 11/28/24 07:34 Tobacco use type Cigarette 11/28/24 07:34 e-Cigarette/Vaping Use Never Used 11/28/24 07:34 Thrive Assessment: Date of Thrive Assessment Date Thrive assessed 08/25/24 11/28/24 07:34 Currently or been in a relationship where the following occur: I choose not to answer Const General: no acute distress Nutritional Appearance: obese Orientation/consciousness: patient oriented x3 Resp Effort & Inspection: normal respiratory effort Auscultation: clear to auscultation bilaterally Cardio Heart sounds: S1 normal heart sound present and S2 normal heart sound present GI Inspection: Yes Abdominal panniculus present and Yes obesity Palpation (GI): Soft to palpation Auscultation: normal bowel sounds Neuro General: patient oriented x3 Coding Level of Care Code Est Pt Level 4 (86003) Diagnoses RUQ abdominal pain R10.11 Time Spent (min) 20 Assessment & Plan Assessment & Plan (1) RUQ abdominal pain: Code(s): R10.11 - Right upper quadrant pain Category: Medical Plan: Improved - refilled medications as requested. Placed referral to GI Orders: Referrals Gastroenterology Referral K29.50 - Unspecified chronic gastritis without bleeding, K31.84 - Gastroparesis, R10.11 - Right upper quadrant pain
[2024-11-28 07:30] VITALS: BP 124/82; PULSE 72; O2SAT 96; BMI 38.3
--- OUTSIDE RECORDS SUMMARY | 2024-11-28 07:30 | XMS_ITS | Clinical Summary ---
Author Organization [facility] [employer] [facility] ity Address [address] [place] [address] Care Team Providers Care Surgical Garment Assembly Supervisor Name Role Phone Unavailable Primary Care Provider [...]
== END 2024-11-28 07:44 | disposition home or self-care (01) ==
LOC: HO.HMCH 07:27
PROVIDERS: PCP Internal Medicine; Visit Provider Nurse Practitioner Family
DX: R10.11 Right upper quadrant pain (principal)

== ENCOUNTER → 2024-11-28 07:26 | Outpatient (BNVA) | payer OTHER, SELFPAY | PROVIDERS: PCP Internal Medicine; Visit Provider Nurse Practitioner Family | DX: E11.43 Type 2 diabetes mellitus with diabetic autonomic (poly)neuropathy (principal); K31.84 Gastroparesis; E66.9 Obesity, unspecified; I10 Essential (primary) hypertension; E78.5 Hyperlipidemia, unspecified; R10.11 Right upper quadrant pain; K29.50 Unspecified chronic gastritis without bleeding; Z86.73 Personal history of transient ischemic attack (TIA), and cerebral infarction without residual deficits; Z68.38 Body mass index [BMI] 38.0-38.9, adult | CPT/HCPCS: 99212 ==

== ENCOUNTER → 2024-12-05 10:30 | Outpatient (BNV) | payer OTHER, SELFPAY | PROVIDERS: PCP Internal Medicine; Visit Provider Radiology Body Imaging | DX: N64.89 Other specified disorders of breast (principal); R92.321 Mammographic fibroglandular density, right breast | CPT/HCPCS: 77061; 77065 ==

== ENCOUNTER 2024-12-05 10:46 | Outpatient (REF) | payer OTHER, SELFPAY ==
--- NOTE | ~2024-12-05 | MM_ITS ---
EXAMINATION: MM DIAGNOSTIC DIGITAL BREAST TOMOSYNTHESIS, RIGHT CLINICAL INFORMATION: Callback from screening for right breast focal asymmetry in the lower outer quadrant posterior depth COMPARISON: Comparison made to multiple prior, most recent October 30, 2024, and most remote November 29, 2020. TECHNIQUE: Digital breast tomosynthesis is performed in full-field ML 90 degrees view along with computer-aided detection (CAD). Synthesized 2D images are generated from the tomosynthesis. Spot compression tomosynthesis images were also obtained. FINDINGS: BREAST COMPOSITION: There are scattered areas of fibroglandular density (ACR BI-RADS breast composition Category b). RIGHT BREAST: Previously suggested focal asymmetry in the lower outer quadrant does not persist on today's additional images and most likely represented overlapping fibroglandular breast tissue. MM/MM tomosynthesis added views R IMPRESSION: RIGHT BREAST: Negative, no mammographic evidence of malignancy. Normal interval follow-up is recommended in 12 months. ASSESSMENT: BI-RADS 1 - Negative RECOMMENDATION: 1 year F/U Results were provided to the patient at time of visit by the technologist. This patient's information was entered into a reminder system with a target due date for their next mammogram. Electronically signed by: Chaparrtia Martin MD 12/05/2024 11:42 AM EDT
--- OUTSIDE RECORDS SUMMARY | 2024-12-05 10:55 | XMS_ITS | Clinical Summary ---
Author Organization [facility] [employer] [facility] ity Address [address] [place] [address] Care Team Providers Care Mortgage Manager Name Role Phone Unavailable Primary Care Provider [...]
== END 2024-12-05 10:47 | disposition home or self-care (01) ==
LOC: HO.MAMMO 10:46
PROVIDERS: PCP Internal Medicine; Visit Provider Internal Medicine
DX: N64.89 Other specified disorders of breast (principal)
CPT/HCPCS: 77061; 77065

== ENCOUNTER 2024-12-22 06:59 | Emergency (ER) | payer OTHER, SELFPAY ==
[2024-12-22 07:05] VITALS: BP 175/74; PULSE 78; RESP 22; TEMP 37; O2SAT 97; BMI 47.7
--- OUTSIDE RECORDS SUMMARY | 2024-12-22 07:21 | XMS_ITS | Clinical Summary ---
Author Organization [facility] [facility] ity Address [address] [place] [address] Care Team Providers Care Law Reporter Name Role Phone Unavailable Primary Care Provider [...] 05/22/2023 Social Influencers of Health Screening 05/22/2023 Depression Screening 04/23/2024 COVID-19 Vaccine (1 - 2023-2 5 season) 2024 Influenza Vaccine (#1) 2024 01/24/2019 RSV Immunization [...]
[2024-12-22 07:25] LABS: MANUAL DIFF FLAG NO
[2024-12-22 07:28] LABS: Hematocrit 41.0 % (37.0-47.0); Hemoglobin 13.2 g/dl (12.0-16.0); Imm Gran Abs Auto 0.02 X10*3/uL (0.00-0.03); Imm Gran Pct Auto 0.3 % (0.0-0.4); Lymphocytes Absolute Auto 2.9 X10*3/uL (1.2-4.9); Mean Corpuscular HGB Conc 32.2 g/dl (31.0-35.0); Mean Corpuscular Hemoglobin 26.7 pg (27.0-33.0); Mean Corpuscular Volume 82.8 fL (80.0-98.0); NRBC Abs Auto 0.000 X10*3/uL (0.0-0.012); NRBC Pct Auto 0.0 /100WBC (0.0-0.2); Platelet Count 205 X10*3/uL (160-400); Red Blood Count 4.95 X10*6/uL (4.20-5.50); White Blood Count 7.0 X10*3/uL (4.8-10.8)
[2024-12-22 07:49] LABS: Alanine Aminotransferase 32 U/L (0-31); Albumin Level 4.4 g/dL (3.5-5.0); Alkaline Phosphatase 112 U/L (39-117); Anion Gap 15 (12-20); Aspartate Amino Transferase 23 U/L (5-31); Blood Urea Nitrogen 19 mg/dL (9-16); Calcium 9.3 mg/dL (8.4-10.2); Carbon Dioxide 25 mmol/L (22-29); Chloride 104 mmol/L (96-108); Creatinine Clr Calc Pharmacy 56.2; Estimated Glomerular Filt Rate > 60; Potassium 4.3 mmol/L (3.3-5.1); Sodium 140 mmol/L (135-145); Total Protein 7.6 g/dL (6.5-8.0)
--- NOTE | 2024-12-22 08:30 | ED_ITS ---
HPI - General Adult General Chief complaint: General Medical Stated complaint: back pain Time Seen by Provider: 12/22/24 07:41 History of Present Illness ED Provider: Lexus Mitchell PA-C HPI narrative: 59-year-old female with a history of obesity, coronary artery disease, CVA, diabetes mellitus, hypertension, hyperlipidemia, gastroparesis, hernia repair, bilateral tubal ligation, CABG presents to the ED due to 1 day of left-sided back pain that is radiating down the side into the anterior left thigh. Patient states she was sitting and watching TV when she noticed a pulling sensation and aching pain in her left back that radiated down her left side into the anterior thigh. Patient states she took Tylenol around 2:00 a.m. without relief. Denies any increased physical activity, fall, trauma, injury. Denies saddle paresthesias, urinary/bowel incontinence, chest pain, shortness of breath, headaches, visual changes, black/tarry stool, abdominal pain, nausea, vomiting MD complaint: back/flank pain Related Data Home Medications ?Medication ?Instructions ?Recorded ?Confirmed sacubitril 49 mg-valsartan 51 mg 1 tab PO BID 05/30/21 11/17/24 tablet (Entresto) ammonium lactate 12 % topical cream 1 appl topical BID 05/29/22 11/17/24 Previous Rx's ?Medication ?Instructions ?Recorded trazodone 100 mg tablet 100 mg PO BEDTIME PRN for in somnia 03/09/20 #30 tabs lancets 33 gauge (TRUEplus Lancets) #200 ea 05/30/21 pen needle, diabetic 32 gauge x #125 05/30/21 (BD Ultra-Fine Rika Pen Needle) flash glucose scanning reader #1 11/22/22 (FreeStyle Arsalan 2 Bogue) flash glucose sensor (FreeStyle #2 11/22/22 Arsalan 2 Sensor kit) semaglutide 1 mg/dose (4 mg/3 mL) 1 mg (0.75 mL) subcu t QWEEK 30 08/20/23 subcutaneous pen injector days #3.75 mL ezetimibe 10 mg tablet 10 mg PO DAILY #90 tabs 04/24 07/15 metformin 1,000 mg tablet 1,000 mg PO BID 90 days #180 tabs 06/04/24 insulin glargine 100 unit/mL (3 32 unit (0.32 mL) subc ut DAILY 90 06/25/24 mL) subcutaneous pen (Lantus days #28.8 mL Solostar U-100 Insulin) amlodipine 10 mg tablet 10 mg PO DAILY 90 days #90 t abs 08/16/24 aspirin 81 mg tablet,delayed 81 mg PO DAILY 90 days #9 0 tabs 08/16/24 release atorvastatin 80 mg tablet 80 mg PO BEDTIME 90 days #90 tabs 08/16/24 metoclopramide HCl 5 mg tablet 5 mg PO QIDACHS #120 ta bs 08/26/24 (Reglan) nitroglycerin 0.4 mg sublingual 0.4 mg sublingual Q5M for angina 09/22/24 tablet #25 tabs cholecalciferol (vitamin D3) 25 25 mcg PO DAILY 30 day s #30 caps 10/21/24 mcg (1,000 unit) capsule hydralazine 50 mg tablet 50 mg PO TID 90 days #270 ta bs 11/12/24 blood sugar diagnostic (FreeStyle #100 ea 11/25/24 Lite Strips) blood-glucose meter (FreeStyle #1 ea 11/25/24 Lite Meter kit) semaglutide 2 mg/dose (8 mg/3 mL) 2 mg (0.75 mL) subcu t QWEEK 4 11/26/24 subcutaneous pen injector (Ozempic) weeks #3 mL aluminum hydrox-magnesium carb 254 10 ml PO QID dyspep john #355 mL 11/28/24 mg-237.5 mg/5 mL oral suspension (Gaviscon Extra Strength) omeprazole 20 mg capsule,delayed 20 mg PO DAILY 90 day s #90 caps 12/15/24 release cyclobenzaprine 5 mg tablet 5 mg PO TID PRN muscle spa sm #15 12/22/24 tabs ketorolac 10 mg tablet 10 mg PO Q8H PRN pain 3 days #9 12/22/24 tabs Allergies Allergy/AdvReac Type Severity Reaction Status Date / Time No Known Allergies (No Known Allergy Verified 12/22/24 07:08 Allergies*) Review of Systems 2 Review of Systems: CONST: Negative for fever, body aches and chills. HENT: Negative for neck pain/stiffness, headache, congestion, sore throat, swelling. EYES: Negative for discharge/pain or vision changes. RESP: Negative for cough/hemoptysis and shortness of breath. CV: Negative chest pain, difficulty breathing, palpitations. ABD: Negative pain, nausea, vomiting. : Negative increase frequency, dysuria, blood in urine or stool. MUSC: Negative for muscle aches, edema. POS L side thoracic pain radiating down to L anterior thigh SKIN: Negative rash, lesions/sores. NEURO: Negative headache, dizziness, weakness. Yes all other systems are reviewed and are negative [facility] Past Medical History Attestation statement: The following information was validated with the patient. Source: old records reviewed, obtained from family (Daughter at bedside corroborating history) and nursing notes reviewed Medical History USP current use of insulin Morbid obesity Coronary artery disease with angina pectoris CVA (cerebral vascular accident) Brain TIA Osteoarthritis of left shoulder Skin lesion Diarrhea Morbid obesity Diabetes mellitus Alopecia Mild recurrent major depression Systolic CHF with reduced left ventricular function, NYHA class 2 Dizziness Polyarthralgia Left knee pain Anxiety Pulmonary nodule Degenerative joint disease Depression 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 Essential hypertension Dyslipidemia Diarrhea Right hand pain Lower back pain Gastroparesis Coronary artery disease Surgical History Hx of shoulder surgery Hx of colonoscopy History of hernia repair (~09/11/18) History of tubal ligation (~1989) History of open heart surgery (~01/2017) History of coronary artery bypass surgery Family History Family History Father History of diabetes mellitus History of hypertension Mother Parkinson disease Family/Other FH: mental illness Social History Social History Household Members: Family Household Members Other:: daughter Housing: House Alcohol intake: never Patient Tobacco Use Status: Former Tobacco user Tobacco use type: Cigarette e-Cigarette/Vaping Use: Never Used Second Hand Smoke Exposure: No Advance Directives: Yes Advance Directives on File: Yes Advance Directives Date on File: 05/31/22 service: No Current occupational status: unemployed Current occupation: rt handed Cognitive needs: No Hearing needs: No Vision needs: Yes Physical Exam ED Vital Signs: Vital Signs - 24 hr 12/22/24 07:05 Temperature 98.6 F Pulse Rate 78 Respiratory Rate 22 H Blood Pressure 175/74 H Pulse Oximetry 97 Oxygen Delivery Method Room Air BMI result Body Mass Index 47.7 GENERAL APPEARANCE: ?AxOx4, generally well-appearing, no acute distress. HEENT: ?NC, AT. MMM. EOMI, clear conjunctiva, oropharynx clear. NECK: ?Supple without lymphadenopathy.? No stiffness or restricted ROM. HEART:? Normal rate and regular rhythm, normal S1/S2, no m/r/g LUNGS:? CTAB, moving air well. No crackles or wheezes are heard. ABDOMEN: ?Soft, nontender, nondistended with good bowel sounds heard. BACK: No CVAT, no obvious deformity. TTP of thoracic paraspinal muscles, no midline spinal tenderness, no bony step-offs palpated, no anatomical abnormalities observed or palpated, TTP of left SI joint EXTREMITIES: ?Without cyanosis, clubbing or edema. NEUROLOGICAL: ?Grossly nonfocal. Alert and oriented, moving all 4 extremities. Observed to ambulate with normal gait. Skin: ?Warm and dry without any rash. Medications Administered Discontinued Medications Generic Name Dose Route Start Last Admin Trade Name Freq PRN Reason Stop Dose Admin Acetaminophen 975 mg 12/22/24 08:46 12/22/24 09:01 Acetaminophen 325 Mg Tablet PO 12/22/24 08:47 975 mg ONCE ONE Administration Cyclobenzaprine HCl 5 mg 12/22/24 08:46 12/22/24 09:00 Cyclobenzaprine Hcl 5 Mg Tablet PO 12/22/24 08:47 5 mg ONCE ONE Administration Ketorolac Tromethamine 30 mg 12/22/24 08:46 12/22/24 09:01 Ketorolac Tromethamine 30 Mg/Ml Vial IM 12/22/24 08:47 30 mg ONCE ONE Administration Medical Decision Making Medical Decision Making MDM Narrative: 59-year-old female with a history of obesity, coronary artery disease, CVA, diabetes mellitus, hypertension, hyperlipidemia, gastroparesis, hernia repair, bilateral tubal ligation, CABG, thoracic back pain, presents to the ED due to 1 day of left-sided back pain that is radiating down the side into the anterior left thigh. No increased physical activity, injury, trauma, falls, saddle paresthesias, urinary/bowel incontinence VS on initial observation- BP 154/82, pulse rate of 70, respiratory rate of 16, afebrile with oral temp of 98.6?, O2 saturation 96% on room air. On physical exam TTP of left-sided thoracic lumbar paraspinal muscles, no pain on the right side, TTP of left-sided SI joint, SILT of lower extremities, positive left-sided straight leg test, full ROM including flexion, extension, lateral bending of spine. Labs without leukocytosis/leukopenia, H&H stable, no electrolyte abnormality, glucose elevated at 312 without anion gap. UA negative for blood or infection Patient without focal neurological deficits, able to ambulate without antalgic/ataxic gait, with full ROM, without midline spinal tenderness, no history of IVDU, no saddle paresthesia, urinary/bowel incontinence, no injury/trauma/fall- this is less likely cauda equina/SEA/fracture Patient was medicated with 30 mg IM ketorolac, 975 p.o. Tylenol, 5 mg cyclobenzaprine which has improved her back pain, this is most likely thoracic back strain as pain is limited to thoracic paraspinal muscles and SI joint, with symptoms improving after medication. On chart reveiew patient has been seen by physiatry for thoracic back pain and has history of thoracic back strain. Will prescribe 5 day course of flexeril and toradol for pain management. I counseled patient to follow up with her primary care provider in order to ensure her improvement and resolution of symptoms. I counseled patient on strict return precautions. Patient and her daughter are in agreement of the plan. Differential Diagnosis Differential Diagnoses: The differential diagnosis associated with the presentation includes Cauda equina Spinal epidural abscess Thoracic back pain Thoracic back strain Pancreatitis Admission/Observation Consideration of admission/observation: Escalation of care including admission/observation considered Lab Data MDM Lab Attestation statement: I reviewed the patient's lab results. 12/22/24 07:21 12/22/24 07:21 Labs: Lab Results 12/22/24 12/22/24 Range/Units 07:21 08:52 WBC 7.0 (4.8-10.8) X10*3/uL RBC 4.95 (4.20-5.50) X10*6/uL Hgb 13.2 (12.0-16.0) g/dl Hct 41.0 (37.0-47.0) % MCV 82.8 (80.0-98.0) fL MCH 26.7 L (27.0-33.0) pg MCHC 32.2 (31.0-35.0) g/dl RDW 14.1 (11.0-16.0) % Plt Count 205 (160-400) X10*3/uL MPV 9.2 L (9.4-12.3) fL Immature Gran % (Auto) 0.3 (0.0-0.4) % Neut % (Auto) 45.3 (45-73) % Lymph % (Auto) 40.9 H (20-40) % [place] % (Auto) 9.5 (2-11) % Eos % (Auto) 3.4 (0-4) % Baso % (Auto) 0.6 (0-2) % Lymph # (Auto) 2.9 (1.2-4.9) X10*3/uL [place] # (Auto) 0.7 (0.1-1.2) X10*3/uL Eos # (Auto) 0.2 (0.0-0.4) X10*3/uL Baso # (Auto) 0.0 (0.0-0.2) X10*3/uL Abs Immat Gran (auto) 0.02 (0.00-0.03) X10*3/uL Absolute Neuts (auto) 3.2 (2.0-8.3) x10*3/uL Absolute Nucleated RBC 0.000 (0.0-0.012) X10*3/uL Nucleated RBC % (auto) 0.0 (0.0-0.2) /100WBC Sodium 140 (135-145) mmol/L Potassium 4.3 (3.3-5.1) mmol/L Chloride 104 (96-108) mmol/L Carbon Dioxide 25 (22-29) mmol/L Anion Gap 15 (12-20) BUN 19 H (9-16) mg/dL Creatinine 0.91 (0.5-1.4) mg/dL Estim Creat Clear Calc 56.2 Estimated GFR > 60 Random Glucose 312 H (60-115) mg/dL Calcium 9.3 (8.4-10.2) mg/dL Total Bilirubin 0.6 (0.0-1.0) mg/dL AST 23 (5-31) U/L ALT 32 H (0-31) U/L Alkaline Phosphatase 112 (39-117) U/L Total Protein 7.6 (6.5-8.0) g/dL Albumin 4.4 (3.5-5.0) g/dL Lipase 35 (8-78) U/L Urine Color Yellow Urine Appearance Clear Urine pH 6.0 (5.0-9.0) Ur Specific [place] >= 1.030 H (1.005-1.025) Urine Protein Trace (Neg-Trace) mg/dL Urine Glucose (UA) 500 H (Negative) mg/dL Urine Ketones Trace (Negative) mg/dL Urine Blood Negative (Negative) Urine Nitrite Negative (Negative) Ur Leukocyte Esterase Negative (Negative) Urine RBC 0-2 (0-2) /HPF Urine WBC 0-5 (0-5) /HPF Ur Squamous Epith Cells 0-2 (0-2) /HPF Urine Bacteria None Seen (None Seen) Hyaline Casts 0-2 (0-2) /LPF Independent Historian Clinical information obtained from an independent historian. History obtained from or confirmed by: Other (Daughter at bedside corroborating history) External Record Review External record reviewed: Inpatient record, Office record and Outpatient record Prescription Management I considered prescription management with: Other (Prednisone) I considered prednisone for radicular symptoms, however patient with uncontrolled T2DM with elevated glucose of 312 without anion gap in department today. Chronic Conditions Patient?s care impacted by: Diabetes, Hypertension and Other (HLD, CHF, gastroparesis, CAD, thoracic back pain,) Social Determinants Patient?s care significantly limited by Social Determinants of Health including: Other Social Determinant of Health Discharge Plan Discharge Clinical Impression: Strain of thoracic back region Patient Disposition: Home, Self-Care Instructions: Thoracic Back Strain (ED) Additional Instructions: You were evaluated in the ED today due to mid back pain radiating down the front of the left thigh. Your lab work was reassuring as there was no elevation in white blood cell count indicating infection, there was no electrolyte abnormality. Your urine was negative for blood or infection. Your glucose was elevated today at 3:12 a.m. your physical exam was reassuring as all your pain was focused to the spinal muscles on the side of the spine instead of down the midline spine. You were medicated with 975 mg of Tylenol, 5 mg of Flexeril, and 30 mg of an intramuscular injection of Toradol with good effect of your pain. I recommend you follow up with your primary care doctor to ensure improvement and resolution of symptoms. You may be a candidate for physical therapy for core strengthening to improve your thoracic back pain, your primary care doctor can help her for you to the specialists. You are being prescribed a 5 day course of Flexeril which is a muscle relaxer, and 3 day course of Toradol which is a strong NSAID. While taking Toradol do not take any other NSAIDs such as ibuprofen, Motrin, Aleve, Naprosyn, or baclofen. You can take 500 mg of Tylenol every 6 hours for further management of pain. Please return to the emergency department if you experience fevers over 100.4?, worsening back pain, difficulty walking, loss of sensation of your inner thighs, or left leg, chest pain, shortness of breath, nausea, vomiting or any other new/worsening/concerning symptoms. Prescriptions: New cyclobenzaprine 5 mg tablet 5 mg PO TID PRN (Reason: muscle spasm) Qty: 15 0RF ketorolac 10 mg tablet 10 mg PO Q8H PRN (Reason: pain) 3 Days Qty: 9 0RF Rx Instructions: maximum total duration of 5 days from all oral, intranasal, or parenteral formulations PT given 30 mg IM toradol for pain management No Action trazodone 100 mg tablet 100 mg PO BEDTIME PRN (Reason: for insomnia) Qty: 30 0RF (DME) FreeStyle Arsalan 2 Bogue Misc See Rx Instructions .Route Qty: 1 0RF Rx Instructions: As directed (DME) FreeStyle Arsalan 2 Sensor Kit See Rx Instructions .Route Qty: 2 11RF Rx Instructions: As directed semaglutide 1 mg/dose (4 mg/3 mL) pen injector 1 mg subcut QWEEK 30 Days Qty: 3.75 6RF ezetimibe 10 mg tablet 10 mg PO DAILY Qty: 90 2RF metformin 1,000 mg tablet 1,000 mg PO BID 90 Days Qty: 180 1RF insulin glargine [Lantus Solostar U-100 Insulin] 100 unit/mL (3 mL) insulin pen 32 unit subcut DAILY 90 Days Qty: 28.8 3RF aspirin 81 mg tablet,delayed release (DR/EC) 81 mg PO DAILY 90 Days Qty: 90 1RF amlodipine 10 mg tablet 10 mg PO DAILY 90 Days Qty: 90 1RF atorvastatin 80 mg tablet 80 mg PO BEDTIME 90 Days Qty: 90 1RF metoclopramide HCl [Reglan] 5 mg tablet 5 mg PO QIDACHS Qty: 120 6RF Rx Instructions: Will monitor for any interaction with prozac nitroglycerin 0.4 mg tablet, sublingual 0.4 mg sublingual Q5M Qty: 25 0RF cholecalciferol (vitamin D3) 25 mcg (1,000 unit) capsule 25 mcg PO DAILY 30 Days Qty: 30 3RF hydralazine 50 mg tablet 50 mg PO TID 90 Days Qty: 270 1RF (DME) blood-glucose meter [FreeStyle Lite Meter] Kit See Rx Instructions .ROUTE .MEDSUPPLY Qty: 1 0RF Rx Instructions: to test blood glucose 4x/day (DME) FreeStyle Lite Strips Strip See Rx Instructions .ROUTE .MEDSUPPLY Qty: 100 11RF Rx Instructions: As directed three times a day Ozempic 2 mg/dose (8 mg/3 mL) pen injector 2 mg subcut QWEEK 28 Days Qty: 3 6RF omeprazole 20 mg capsule,delayed release(DR/EC) 20 mg PO DAILY 90 Days Qty: 90 3RF ammonium lactate 12 % cream 1 appl topical BID Protocol: Apply to: Apply to: feet Entresto 49-51 mg tablet 1 tab PO BID (DME) pen needle, diabetic [BD Ultra-Fine Rika Pen Needle] 32 gauge x 5/32 needle See Rx Instructions .ROUTE .MEDSUPPLY Qty: 125 11RF Rx Instructions: As directed four times a day (DME) lancets [TRUEplus Lancets] 33 gauge misc See Rx Instructions .ROUTE .MEDSUPPLY Qty: 200 8RF Rx Instructions: As directed 4 x/day Gaviscon Extra Strength 254-237.5 mg/5 mL suspension 10 ml PO QID Qty: 355 0RF Print Language: Egyptian
[2024-12-22 09:00] LABS: Appearance Urine Clear; Glucose Urine UA 500 mg/dL (Negative); PH 6.0 (5.0-9.0); Specific Gravity - Urine >= 1.030 (1.005-1.025)
[2024-12-22 09:09] LABS: Lipase 35 U/L (8-78)
[2024-12-22 10:54] VITALS: BP 175/74; PULSE 78; RESP 22; TEMP 37; O2SAT 97
== END 2024-12-22 10:55 | disposition home or self-care (01) ==
PROVIDERS: Emergency Provider Emergency Medicine; PCP Internal Medicine
DX: S29.012A Strain of muscle and tendon of back wall of thorax, initial encounter (principal); X58.XXXA Exposure to other specified factors, initial encounter; Y93.9 Activity, unspecified; Y92.9 Unspecified place or not applicable; Y99.9 Unspecified external cause status; M54.9 Dorsalgia, unspecified
CPT/HCPCS: 36415; 80053; 81001; 83690; 85025; 96372; 99283; 99284; J1885

== ENCOUNTER 2025-01-13 09:14 | Outpatient (REF) | payer OTHER, SELFPAY ==
--- OUTSIDE RECORDS SUMMARY | 2025-01-13 10:49 | XMS_ITS | Clinical Summary ---
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
[2025-01-13 11:42] LABS: Microalbum/Creatinine Ratio Ur 5.9 ug/mg cr (<30)
[2025-01-13 11:49] LABS: Folate 13.5 ng/mL (> or = 4.0); Vitamin B12 488 pg/mL (200-900)
[2025-01-13 12:50] LABS: Anion Gap 10 (12-20)
[2025-01-13 12:55] LABS: Alanine Aminotransferase 26 U/L (0-31); Albumin Level 4.5 g/dL (3.5-5.0); Alkaline Phosphatase 77 U/L (39-117); Aspartate Amino Transferase 31 U/L (5-31); Blood Urea Nitrogen 20 mg/dL (9-16); Calcium 9.2 mg/dL (8.4-10.2); Carbon Dioxide 29 mmol/L (22-29); Chloride 107 mmol/L (96-108); Cholesterol 113 mg/dL (<200); Estimated Glomerular Filt Rate > 60; HDL Cholesterol 32 mg/dL (>40); Potassium 4.3 mmol/L (3.3-5.1); Sodium 142 mmol/L (135-145); Total Protein 7.7 g/dL (6.5-8.0); Triglycerides 130 mg/dL (<150)
== END 2025-01-13 09:15 | disposition home or self-care (01) ==
LOC: HO.LAB 09:14
PROVIDERS: PCP Internal Medicine; Visit Provider Internal Medicine
DX: E11.9 Type 2 diabetes mellitus without complications (principal); E78.5 Hyperlipidemia, unspecified; E55.9 Vitamin D deficiency, unspecified; R80.9 Proteinuria, unspecified; E53.8 Deficiency of other specified B group vitamins; Z79.4 Long term (current) use of insulin
CPT/HCPCS: 36415; 80053; 80061; 82043; 82306; 82570; 82607; 82746

== ENCOUNTER 2025-01-15 10:36 | Outpatient (AMB) | payer OTHER, SELFPAY ==
[2025-01-15 10:50] VITALS: BP 102/50; PULSE 84; RESP 18; TEMP 36.2; O2SAT 96; BMI 38.4
--- NOTE | 2025-01-15 10:50 | MHC.PC.OV ---
Vital Signs 01/15/25 10:50 Height 5 ft Weight 196 lb 8 oz BMI 38.4 BP 102/50 L Blood Pressure Location Lt brachial Position Sitting Respiration 18 Pulse 84 Pulse Source Pulse Oximeter Temp 97.1 F Temp Source Temporal Artery Scan Pulse Oximetry (%) 96 Oxygen Delivery Method Room Air Intake Visit Reasons: dm Quality Management Coordinator Required: No Accompanied by: Self / Same As Patient Allergies No Known Allergies (No Known Allergies*) Allergy (Verified 01/15/25 11:14) Medication List - Last Reconciled 01/15/25 by Chen Chase MD aluminum hydrox-magnesium carb 254-237.5 mg/5 mL (Gaviscon Extra Strength) 10 mL PO QID amlodipine 10 mg PO DAILY 90 days ammonium lactate 12% 1 appl See Protocol topical BID aspirin 81 mg PO DAILY 90 days atorvastatin 80 mg PO BEDTIME 90 days blood sugar diagnostic (FreeStyle Lite Strips) As directed three times a day blood-glucose meter (FreeStyle Lite Meter kit) to test blood glucose 4x/day cholecalciferol (vitamin D3) 25 mcg PO DAILY 30 days cyclobenzaprine 5 mg PO TID PRN ezetimibe 10 mg PO DAILY flash glucose scanning reader (TPI CompositesStyle Arsalan 2 [place]) As directed flash glucose sensor (FreeStyle Arsalan 2 Sensor kit) As directed hydralazine 50 mg PO TID 90 days insulin glargine (Lantus Solostar U-100 Insulin) 32 units (0.32 mL) subcut DAILY 90 days lancets (TRUEplus Lancets) As directed 4 x/day metformin 1,000 mg PO BID 90 days metoclopramide HCl (Reglan) 5 mg PO QIDACHS nitroglycerin 0.4 mg sublingual Q5M omeprazole 20 mg PO DAILY 90 days pen needle, diabetic (BD Ultra-Fine Rika Pen Needle) As directed four times a day sacubitril-valsartan 49-51 mg (Entresto) 1 tab PO BID semaglutide 1 mg (0.75 mL) subcut QWEEK 30 days semaglutide (Ozempic) 2 mg (0.75 mL) subcut QWEEK 4 weeks trazodone 100 mg PO BEDTIME PRN Tobacco use date assessed: 01/15/25 Dental Screening Dental Screen Date: 01/15/25 Did you have a dental visit in the last 12 months?: No Did you have a dental problem in the last 6 months where you did not have access to dental care?: No Was dental information given to patient?: No HPI HPI Comments History of Present Illness Details The patient is a 59-year-old female presenting for management of chronic conditions including hypertension, hyperlipidemia, diabetes mellitus, and heart failure. Hypertension has been well-controlled with amlodipine 10 mg daily, with recent blood pressure readings consistently below 130/80 mmHg. She is also on hydralazine 50 mg three times daily and metoprolol for additional blood pressure control. For hyperlipidemia, the patient is taking atorvastatin 80 mg and ezetimibe 10 mg, with recent LDL cholesterol levels at 55 mg/dL, which is below the target of 70 mg/dL. The patient has a history of diabetes mellitus, managed with metformin 1200 mg daily and Lantus 32 units. She is awaiting approval for Ozempic to aid in glycemic control. Heart failure is being managed with Entresto, and she has a mildly dilated ascending aorta measuring 3.7 cm and a small pericardial effusion noted on echocardiogram. The outside sales account representative plans to follow up in one year. The patient is also dealing with gastroparesis, for which she is taking metoclopramide and has a follow-up appointment with gastroenterology scheduled for February. She has a history of obesity with a BMI of 38, and her weight has decreased from 220 lbs to 196 lbs. [facility] Medical History penitentiary current use of insulin Morbid obesity Coronary artery disease with angina pectoris CVA (cerebral vascular accident) Brain TIA Osteoarthritis of left shoulder Skin lesion Diarrhea Morbid obesity Diabetes mellitus Alopecia Mild recurrent major depression Systolic CHF with reduced left ventricular function, NYHA class 2 Dizziness Polyarthralgia Left knee pain Anxiety Pulmonary nodule Degenerative joint disease Depression 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 Essential hypertension Dyslipidemia Diarrhea Right hand pain Lower back pain Gastroparesis Coronary artery disease Surgical History Hx of shoulder surgery Hx of colonoscopy History of hernia repair (~09/11/18) History of tubal ligation (~1989) History of open heart surgery (~01/2017) History of coronary artery bypass surgery Family History Father History of diabetes mellitus History of hypertension Mother Parkinson disease Family/Other FH: mental illness Social History Household Members: Family Household Members Other:: daughter Housing: House Alcohol intake: never Patient Tobacco Use Status: Former Tobacco user Tobacco use type: Cigarette e-Cigarette/Vaping Use: Never Used Second Hand Smoke Exposure: No Advance Directives Date on File: 05/31/22 service: No Current occupational status: unemployed Current occupation: rt handed Cognitive needs: No Hearing needs: No Vision needs: Yes Questionnaire Thrive Questionnaire Date Thrive assessed: 08/25/24 I am a: Patient What is your living situation today?: I have a steady place to live Within the past 12 months, did the food you bought not last and you didn't have the money to get more?: I choose not to answer this question Within the past 12 months, did you worry whether your food would run out before you got money to buy more?: I choose not to answer this question Do you have trouble paying for medicines?: No Do you have trouble getting transportation to medical appointments?: No Do you have trouble paying your heating and electricity bill?: No Do you have trouble taking care of your child, family member or friend?: No Do you have trouble with day-to-day activities such as bathing, preparing meals, shopping, managing finances, etc.?: I choose not to answer this question Are you currently unemployed and looking for a job?: No Are you interested in more education?: No Please select the resources that you would like help with: None Currently or been in a relationship where the following occur: I choose not to answer THRIVE Score: 0 MARLINE-7 AMB Questionnaire MARLINE-7 Date MARLINE - 7 assessed: 08/25/24 Source: Developed by Drs. Jerod Bang, Анна Jacobson, Horacio Espinosa and colleagues, with an educational maria del carmen from [employer] Review of Systems Const All systems reviewed & are unremarkable except as noted in HPI and below Card Denies chest pain at rest, Denies chest pain with activity, Denies edema, Denies irregular heart rhythm, Denies claudication, Denies dyspnea, Denies dyspnea on exertion, Denies orthopnea, Denies paroxysmal nocturnal dyspnea and Denies slow heart rate Resp Denies cough, Denies dyspnea and Denies dyspnea on exertion Physical exam (Primary Care) Vital Signs: Last Vital Signs Temp 97.1 F 01/15/25 10:50 Pulse 84 01/15/25 10:50 Resp 18 01/15/25 10:50 BP 102/50 L 01/15/25 10:50 Pulse Ox 96 01/15/25 10:50 Oxygen Delivery Method Room Air 01/15/25 10:50 BMI result Body Mass Index 38.4 BMI Assessment/Plan discussion: High BMI High, discussed plan: lifestyle, weight reduction, dietary and physical activity Tobacco/Smoking Status: Tobacco use Status Tobacco use date assessed 01/15/25 01/15/25 10:59 Patient Tobacco Use Status Former Tobacco user 01/15/25 10:59 Tobacco use type Cigarette 01/15/25 10:59 e-Cigarette/Vaping Use Never Used 01/15/25 10:59 Thrive Assessment: Date of Thrive Assessment Date Thrive assessed 08/25/24 01/15/25 10:59 Currently or been in a relationship where the following occur: I choose not to answer Resp Effort & Inspection: normal respiratory effort Auscultation: clear to auscultation bilaterally Cardio Jugular venous distension: no JVD Rate: regular rate Rhythm: regular rhythm Heart sounds: S1 normal heart sound present and S2 normal heart sound present Extrem General: Yes full ROM Results AMB Hemoglobin A1c AMB Hemoglobin A1c 7.3 % Last Edit by Radha Leal CMA on 01/15/25 11:07 Results Reviewed Results Reviewed: Laboratory Last Values Hgb A1c (Clinic) 7.3 % (4.0-6.0) H 01/15/25 11:02 Coding Level of Care Code Est Pt Level 4 (08665) Complex EM visit Add On G2211 Diagnoses Essential hypertension I10 Systolic CHF with reduced left ventricular function, NYHA class 2 I50.20 Hyperlipidemia LDL goal <70 E78.5 Type 2 diabetes mellitus without complication, with long-term current use of insulin E11.9; Z79.4 Diabetes mellitus type: type 2 Diabetes mellitus complication status: without complication Gastroparesis K31.84 Time Spent (min) 23 Assessment & Plan Assessment & Plan (1) Essential hypertension: Code(s): I10 - Essential (primary) hypertension Category: Medical (2) Systolic CHF with reduced left ventricular function, NYHA class 2: Code(s): I50.20 - Unspecified systolic (congestive) heart failure Category: Medical (3) Hyperlipidemia LDL goal <70: Code(s): E78.5 - Hyperlipidemia, unspecified Category: Medical (4) Diabetes mellitus, with long-term current use of insulin: Code(s): E11.9 - Type 2 diabetes mellitus without complications; Z79.4 - terminal computer operator (current) use of insulin Category: Medical Qualifiers: Diabetes mellitus type: type 2 Diabetes mellitus complication status: without complication Qualified Code(s): E11.9 - Type 2 diabetes mellitus without complications; Z79.4 - penitentiary (current) use of insulin (5) Gastroparesis: Code(s): K31.84 - Gastroparesis Category: Medical Plan Plan Patient was informed and verbally consented to the use of an ambient scribe for clinic note documentation during this visit. 1. Hypertension The patient's hypertension is well-controlled with amlodipine 10 mg daily, hydralazine 50 mg three times daily, and metoprolol. 2. Hyperlipidemia Hyperlipidemia is managed with atorvastatin 80 mg and ezetimibe 10 mg, with LDL cholesterol levels at 55 mg/dL. 3. Diabetes Mellitus Diabetes is managed with metformin 1200 mg daily and Lantus 32 units, with pending approval for Ozempic. 4. Heart Failure Heart failure is managed with Entresto, with a follow-up echocardiogram showing a mildly dilated ascending aorta and small pericardial effusion. 5. Gastroparesis Gastroparesis is managed with metoclopramide, with a gastroenterology follow-up scheduled for February. 6. Obesity The patient has a BMI of 38 and has reduced her weight from 220 lbs to 196 lbs. Orders: Orders Microalbumin, Random (w Creat) Today R80.9 - Proteinuria, unspecified Vitamin B12 and Folate Today E53.8 - Deficiency of other specified B group vitamins Comprehensive [place]. Panel Fast Today I50.20 - Unspecified systolic (congestive) heart failure NT Pro B Type Natriuretic Pept 4 Months I50.20 - Unspecified systolic (congestive) heart failure AMB Hemoglobin A1c Today Z13.9 - Encounter for screening, unspecified Lipid Panel 4 Months E78.5 - Hyperlipidemia, unspecified Vitamin D 25-OH Total Today E55.9 - Vitamin D deficiency, unspecified Medications: Refilled semaglutide (Ozempic) 2 mg (0.75 mL) subcut QWEEK 3 mL 6RF 4 weeks
== END 2025-01-15 11:31 | disposition home or self-care (01) ==
LOC: HO.HMCH 10:37
PROVIDERS: PCP Internal Medicine; Visit Provider Internal Medicine
DX: E11.69 Type 2 diabetes mellitus with other specified complication (principal); I50.20 Unspecified systolic (congestive) heart failure; Z79.4 Long term (current) use of insulin; I10 Essential (primary) hypertension; E78.5 Hyperlipidemia, unspecified; K31.84 Gastroparesis

== ENCOUNTER → 2025-01-15 10:36 | Outpatient (BNVA) | payer OTHER, SELFPAY | PROVIDERS: PCP Internal Medicine; Visit Provider Internal Medicine | DX: I11.0 Hypertensive heart disease with heart failure (principal); I50.20 Unspecified systolic (congestive) heart failure; E78.5 Hyperlipidemia, unspecified; E11.9 Type 2 diabetes mellitus without complications; K31.84 Gastroparesis; E66.9 Obesity, unspecified; Z68.38 Body mass index [BMI] 38.0-38.9, adult; Z79.4 Long term (current) use of insulin; Z79.899 Other long term (current) drug therapy | CPT/HCPCS: 83036; 99212 ==